=== PATIENT | female | born 1975 | race Caucasian/White ===

== ENCOUNTER 2019-09-11 17:54 | Observation (INO) | payer MEDICAID ==
[~2019-09-11] VITALS: Ht 160 cm; Wt 130.0 kg
--- NOTE | ~2019-09-11 | HEMODYNAMI ---
PATIENT:SHY VARGAS MEDICAL RECORD: [id number] : 71 [id number] ADMISSION DATE: 09/11/19 Generatedon:09/12/201915:55 Patient name: SHY VARGAS Patient #: [id number] : 1975 Date of study: 09/12/2019 Page: Of Hemodynamic Procedure Report Patient Data Patient Demographics Procedure consent was obtained First Name: SHY Gender: Female Last Name: SAM : 1975 Patient #: [id number] Age: 44 year(s) Race: SSN: [id number] Additional ID: [id number] Contact details [address]: [address] [place] [address] State: [place] City: [place] Zip code: [address] Admission Admission Data Admission Date: 09/11/2019 Admission Time: 20:53 Arrival Date: 09/11/2019 Arrival Time: 20:53 Admit Source: Emergency Insurance Payor: Private department health insurance Room #: D.2115 [facility] #: [id number] Height (in.): 62.99 BSA: 2.25 (m2) Height (cm.): 160 BMI: 50.78 (kg/m2) Weight (lbs.): 286.6 Weight (kg.): 130 Lab Results Lab Result Date: 09/12/2019 Lab Result Time: 0:00 Biochemistry Name Units Result Min Max BUN mg/dl 12 --(-*--)-- 7 18 Creatinine mg/dl 0.9 --(-*--)-- 0.6 1.3 eGFR ml/min 70.51003 *-(----)-- 90 120 NONAFRICAN CBC Name Units Result Min Max Hemoglobin g/dl 10.4 *-(----)-- 13.5 17.5 Procedure Procedure Types Cath Procedure Diagnostic Procedure LHC [facility] w/Coronaries Sedation Charges Moderate Sedation up to 30 minutes Procedure Description Procedure Date Procedure Date: 09/12/2019 Procedure Start Time: 15:27 Procedure End Time: 15:52 Procedure Staff Name Function Amish Alex MD Performing Physician Doreen Diaz RT Monitor Latisha Slade RT Scrub Francesca Maria RT Scrub Leonila Cordero RN Nurse Procedure Data Cath Procedure Fluoroscopy Diagnostic fluoroscopy Total fluoroscopy Time: 3.5 time: 3.5 min min Diagnostic fluoroscopy Total fluoroscopy dose: 976 dose: 976 mGy mGy Contrast Material Contrast Material Type Amount (ml) Isovue 300 54 Entry Location Entry Primary Successful Side Size Upsize Upsize Entry Closure Succes sful Closure Location (Fr) 1 (Fr) 2 (Fr) Remarks Device Remarks Femoral Right 4 Fr Sheath vein sutured in place Femoral Right 5 Fr Exoseal artery Femoral Left 5 Fr Exoseal artery Estimated blood loss: 5 ml Diagnostic catheters Device Type Used For End Catheter Placement MULTIPACK JL 4.0 5Fr Left Coronary catheter Angiography MULTIPACK 3DRC 5Fr Right Coronary catheter Angiography MULTIPACK Pigtail 5 Fr LV Angiography catheter Procedure Complications No complications Procedure Medications Medication Administration Route Dosage 0.9% NaCl I.V. 100 ml/hr Oxygen etCO2 Nasal cannula 2 l/min Lidocaine 2% added to field 20 Heparin Flush Bag added to field 2 bags (1000units/500ml NS) Plavix P.O. 75 mg Benadryl I.V. 50 mg Solumedrol I.V. 125 mg Versed I.V. 2 mg Fentanyl I.V. 50 mcg Fentanyl I.V. 50 mcg Hemodynamics Rest BSA: 2.25 (m2) HGB: 10.4 (g/dl) O2 Consumption: Estimated: 239 (ml/min) O2 Consu mption indexed: Estimated:106.22 (ml/min/m) Heart Rate: 88 (bpm) Pressure Samples Time Site Value (mmHg) Purpose Heart Use Rate(bpm) 15:45 LV 105/5,9 Snapshot 98 15:45 AO 130/72(101) Pullback 97 15:45 LV 132/10,13 Pullback 97 Gradients Valve Time Site 1 Site 2 Mean SEP/DFP Peak To Heart Use (mmHg) (sec/min) Peak Rate (mmHg) (bpm) Aortic 15:45 LV AO 5 19 2 97 132/10,13 130/72(101) Calculations Valve P-P Mean Valve Index Valve Source Name Gradient Area Flow (cm2) Aortic 2 5 2 5 Snapshots Pre Cath Intra NCS Post Cath Vital Signs Time Heart Resp SPO2 etCO2 NIBP (mmHg) Rhythm Pain Status Sedation Rate (ipm) (%) (mmHg) Level (bpm) 15:19:02 88 21 97 0 142/96(117) NSR 0 (11) , No 10(A) pain 15:23:04 92 12 98 23.9 148/102(135) NSR 0 (11) , No 10(A) pain 15:27:10 77 13 99 36.7 150/92(110) NSR 0 (11) , No 10(A) pain 15:31:16 102 16 100 39.6 151/102(122) ST 0 (11) , No 10(A) pain 15:35:21 98 13 100 39.6 143/99(117) NSR 0 (11) , No 10(A) pain 15:39:25 100 17 98 38.9 141/99(121) NSR 0 (11) , No 10(A) pain 15:43:27 94 11 100 23.2 154/95(111) NSR 4 (11) , 10(A) Distressing 15:47:33 94 15 98 39.6 145/101(131) NSR 0 (11) , No 10(A) pain 15:52:32 96 15 98 37.4 Measuring NSR 0 (11) , No 10(A) pain 15:52:46 98 16 97 40.4 141/102(128) NSR 0 (11) , No 10(A) pain Medications Time Medication Route Dose Verified Delivered Reason Notes E ffectiveness by by 15:18:08 0.9% NaCl I.V. 100 Amish Keen used for ml/hr Abi Gil procedure MD PAYNE 15:18:14 Oxygen etCO2 2 Amish Keen used for Nasal l/min Abi Gil procedure cannula MD PAYNE 15:18:20 Lidocaine 2% added 20ml Amish Wellington for local to vial [facility] anesthetic field MD PEDERSON 15:18:24 Heparin Flush added 2 Amish Wellington used for Bag to bags Abi Abi procedure (1000units/500ml field MD PEDERSON NS) 15:18:32 Plavix P.O. 75 mg Amish Keen for [facility] fermin MD RN therapy 15:18:43 Benadryl I.V. 50 mg Amish Leonila used for [facility] Cordero procedure MD PAYNE 15:18:50 Solumedrol I.V. 125 Amish Jonyla used for mg [facility] pires MD, RN 15:24:59 Versed I.V. 2 mg Amish Leonila for sedation [facility] Cordero MD, RN 15:25:03 Fentanyl I.V. 50 Amish Leonila for sedation mcg [facility] Cordero MD, RN 15:43:52 Fentanyl I.V. 50 Amish Leonila for sedation [facility] Corder[facility] MD, RN Procedure Log Time Note 14:40:58 Diagnostic Cath Status : Urgent 14:41:38 Informed consent obtained and on chart 14:43:13 Admit Source: Emergency department 14:43:17 Arrival Date: 09/11/2019 8:53:00 PM 14:43:35 Insurance Payor : Private health insurance 14:43:40 Patient Height : 62.99 inches 14:43:44 Patient Weight : 286.6 lbs 14:44:11 Lab Result : BUN 12 mg/dl 14:44:11 Lab Result : Creatinine 0.9 mg/dl 14:44:11 Lab Result : eGFR NONAFRICAN 70.32491 ml/min 14:44:11 Lab Result : Hemoglobin 10.4 g/dl 14:44:43 Francesca GAYLE(R) sent for patient. Start room use. 14:44:44 Time tracking: Regular hours (M-F 7:00 - 5:00) 14:44:49 Plan of Care:Hemodynamics will remain stable., Cardiac rhythm will remain stable., Comfort level will be maintained., Respiratory function will remain adequate., Patient/ family verbilizes understanding of procedure., Procedure tolerated without complication., Recovers from procedure without complications.. 14:46:43 Risk of Mortality: 4.8 14:46:46 Risk of blood transfusion: 17.2 14:46:50 Risk of WANDA: 12.1 14:46:56 2) 60-89 Mildly reduced kidney function, and other findings (as for stage 1) point to kidney disease. 14:47:10 Maximum allowable contrast dose (3.7 X eGFR X 0.75)197 ml. 14:50:57 Patient received from Med II to CCL 2 Alert and oriented. Tansferred to table in Supine position. 14:50:58 Warm blankets applied, and ilana hugger turned on for patient comfort. 14:50:59 Correct patient and procedure confirmed by team. 14:50:59 ECG and BP/O2 sat monitors applied to patient. 15:12:16 IV Right upper arm D/C'd due to infiltration. 15:18:00 Vital chart was started 15:18:08 0.9% NaCl 100 ml/hr I.V. was administered by Leonila Cordero RN; used for procedure; Verbal order read back and verified. 15:18:14 Oxygen 2 l/min etCO2 Nasal cannula was administered by Leonila Cordero RN; used for procedure; Verbal order read back and verified. 15:18:20 Lidocaine 2% 20ml vial added to field was administered by Amish Alex MD; for local anesthetic; Verbal order read back and verified. 15:18:24 Heparin Flush Bag (1000units/500ml NS) 2 bags added to field was administered by Amish Alex MD; used for procedure; Verbal order read back and verified. 15:18:32 Plavix 75 mg P.O. was administered by Leonila Cordero RN; for antiplatelet therapy; Verbal order read back and verified. 15:18:43 Benadryl 50 mg I.V. was administered by Leonila Cordero RN; used for procedure; Verbal order read back and verified. 15:18:50 Solumedrol 125 mg I.V. was administered by Leonila Cordero RN; used for procedure; Verbal order read back and verified. 15:19:00 Baseline sample Acquired. 15:19:06 Rhythm: sinus tachycardia 15:19:12 Full Disclosure recording started 15:19:37 H&P Date Dictated: 09/12/2019 New H&P dictated by physician.. 15:19:39 Pre-procedure instructions explained to patient. 15:19:40 Pre-op teaching completed and patient verbalized understanding. 15:19:41 Family in patients room. 15:19:42 Patient NPO since Midnight. 15:19:47 Is the patient allergic to Iodine/contrast media? Yes. 15:19:49 Was the patient premedicated? Yes 15:19:52 Is patient on blood thinner?Yes 15:19:54 ACC The patient was administered the following blood thiners within the last 24 hours: ACCPlavix 15:20:00 Patient diabetic? Yes. 15:20:01 If diabetic: On Metformin? No 15:20:04 Previous problem with sedation/anesthesia? No ? 15:20:15 Snore? Yes 15:20:17 Sleep apnea? Yes 15:20:18 Deviated septum? No 15:20:19 Opens mouth fully? Yes 15:20:34 Sticks out tongue? Yes 15:20:38 Airway obstruction? No ? 15:21:16 Dentures? No ? 15:21:23 Pre procedure: right dorsailis pedis pulse 2+ Normal; easily identifiable; not easily obliterated 15:21:25 Pre procedure: left dorsailis pedis pulse 2+ Normal; easily identifiable; not easily obliterated 15:21:28 Patient pain scale 0/10 ?. 15:21:43 Lab results completed and on chart. 15:21:49 Stress Test: no; N/A ? 15::57 Right groin area was prepped with chlora-prep and draped in sterile fashion 15::59 Alarms reviewed by R. N. 15::59 Sharps counted by scrub and verified by R.N. 15::59 Physician arrived 15:22:00 --------ALL STOP TIME OUT------ 15:22:01 Final Timeout: patient, procedure, and site verified with staff and physician. All members of the team are in agreement. 15:24:22 Right groin site verified by team. 15:24:25 Fire Safety Assessment: A--An alcohol-based skin anteseptic being used preoperatively., C--Open oxygen or nitrous oxide is being used., D--An ESU, laser, or fiber-optic light is being used. 15:24:30 Physical assessment completed. ASA score P 2 - A patient with mild systemic disease as per Amish Alex MD. 15:24:34 Sedation plan: IV Moderate Sedation Medication:Versed, Fentanyl 15:24:59 Versed 2 mg I.V. was administered by Leonila Cordero RN; for sedation; Verbal order read back and verified. 15:25:03 Fentanyl 50 mcg I.V. was administered by Leonila Gil RN; for sedation; Verbal order read back and verified. 15:25:34 unable to start new iv; Dr Alex planning to gain femoral venous access for meds 15:25:38 Use device set Femoral Dx 15:25:39 ACIST Syringe (92724) opened to sterile field. 15:25:39 Bag Decanter (2002S) opened to sterile field. 15:25:40 Medline Cath Pack ([id number]) opened to sterile field. 15:25:41 ACIST Hand Control (33656) opened to sterile field. 15:25:42 ACIST Manifold (95545) opened to sterile field. 15:25:42 DIAGNOSTIC Multipack 5Fr catheter set (OR2652) opened to sterile field. 15:25:43 Tegaderm 4 x 4 (1626W) opened to sterile field. 15:25:44 SHEATH 5FR Delray (UPZ860) opened to sterile field. 15:25:44 EMERALD Guide Wire (037-810) opened to sterile field. 15:25:50 Procedure started. 15:25:57 MICROPUNCTURE 4FR Oxyrane UK (U28996) opened to sterile field. 15:27:29 Local anesthetic to right femoral artery with Lidocaine 2% by Amish Alex MD.INITIAL ACCESS ONLY 15:28:53 Access obtained with 4Fr micropunture. 15:29:06 A 4 Fr sheath was inserted into the Right Femoral vein 15:29:50 A 5 Fr sheath was inserted into the Right Femoral artery 15:30:57 A MULTIPACK JL 4.0 5Fr catheter was advanced over the wire and used for Left Coronary Angiography. 15:32:04 LCA angiography performed. 15:32:07 Injector settings: Ml/sec: 3, Volume: 6, 15:33:05 Catheter removed. 15:33:10 A MULTIPACK 3DRC 5Fr catheter was advanced over the wire and used for Right Coronary Angiography. 15:34:19 RCA angiography performed. 15:34:21 Injector settings: Ml/sec: 3, Volume: 6, 15:39:24 GLIDE WIRE Super Stiff Angled 260cm (QR1324) opened to sterile field. 15:42:59 glide wire advanced in attempt to guide pigtail; removed 15:43:24 left femoral prepped in sterile fashion 15:43:29 Local anesthetic to left femerol artery with Lidocaine 2% by Amish Alex MD.ADDITIONAL ACCESS 15:43:41 A 5 Fr sheath was inserted into the Left Femoral artery 15:43:41 SHEATH 5FR Delray (PWZ112) opened to sterile field. 15:43:52 Fentanyl 50 mcg I.V. was administered by Leonila Cordero RN; for sedation; Verbal order read back and verified. 15:44:34 A MULTIPACK Pigtail 5 Fr catheter was advanced over the wire and used for LV Angiography. 15:45:08 LV hemodynamics recorded. 15:45:09 LV gram done using WEBB 15:45:13 Injector settings: Ml/sec: 5, Volume: 15, 15:45:36 EF : 55 % 15:46:17 Catheter removed. 15:46:20 EXOSEAL 5Fr (EX500) opened to sterile field. 15:48:31 EXOSEAL 5Fr (EX500) opened to sterile field. 15:49:46 Sheath removed intact; hemostasis achieved with Exoseal to the Right Femoral artery. 15:50:19 Sheath removed intact; hemostasis achieved with Sheath sutured in place to the Right Femoral vein. 15:51:10 Sheath removed intact; hemostasis achieved with Exoseal to the Left Femoral artery. 15:51:16 Procedure ended.(Physican Out) 15:51:36 Fluoroscopy time 03.50 minutes. 15:51:43 Fluoroscopy dose: 976 mGy 15:51:43 Flurop Dose total: 976 15:51:49 Dose Area Product 87122 mGy/cm. 15:51:56 Contrast amount:Isovue 300 54ml. 15:51:59 Maximum allowable dose exceeded? No. 15:52:00 Sharps counted by scrub and verified by R.N. 15:52:02 Insertion/operative site no bleeding no hematoma. 15:52:07 Post-op/insertion site Right Femoral artery dressed using a 4 x 4 and Tegaderm. 15:52:10 Post-op/insertion site Left Femoral artery dressed using a 4 x 4 and Tegaderm. 15:52:11 Post Procedure Pulses reassessed and unchanged 15:52:14 Post procedure rhythm: unchanged. 15:52:17 Estimated blood loss: 5 ml 15:52:19 Post procedure instruction explained to patient.Patient verbalizes understanding. 15:52:19 Patient needs reinforcement of post procedure teaching. 15:52:28 Procedure type changed to Cath procedure, Diagnostic procedure, LHC, LHC w/Coronaries, Sedation Charges, Moderate Sedation up to 30 minutes 15:52:29 Procedure and supply charges have been captured, reviewed, submitted and are correct. 15:52:34 Procedure Complication : No complications 15:52:37 Vital chart was stopped 15:52:39 [facility] Findings: mild to moderate CAD (<70%) 15:52:40 Operative report dictated upon procedure completion. 15:52:40 See physician's report for complete and final results. 15:52:44 Report given to [facility]. 15:52:47 Patient transfered to [facility] with Stretcher. 15:52:49 Procedure ended. 15:52:49 Full Disclosure recording stopped 15:53:44 End room use (Document Last) 15:54:26 End room use (Document Last) 15:54:50 End room use (Document Last) Device Usage Item Name Manufacture Quantity Catalog Hospital Part Current Minimal Lot# / Number Charge Number Stock Stock Serial# Code ACIST Syringe Acist 1 49538 556959 004434 427026 20 (41648) Medical Systems Inc Bag Decanter Microtek 1 2001S 565366 29487 667601 5 (2001S) Medical Inc. Medline Cath Medline 1 [id number] 286826 81490 486594 5 Pack ([id number]) ACIST Hand Acist 1 98153 492178 490589 328246 5 Control Medical (18283) Systems Inc ACIST Acist 1 22492 046872 505281 123529 5 Manifold Medical (51205) Systems Inc DIAGNOSTIC Cardinal 1 DJ2810 496056 33787 077812 30 Multipack 5Fr Health catheter set (WI6608) Tegaderm 4 x 3M 1 1626W 286746 678005 129881 5 4 (1626W) SHEATH 5FR Terumo 2 TVO859 906048 043331 623283 5 Delray (IIM848) EMERALD Guide Cardinal 1 502-455 857145 389335 061542 5 Wire Health (502-455) MICROPUNCTURE Oxyrane UK Medical 1 H87541 394995 657939 719484 5 4FR Cook (H58505) MULTIPACK JL Cardinal 1 759743 5 4.0 5Fr Health catheter MULTIPACK Cardinal 1 567082 5 3DRC 5Fr Health catheter GLIDE WIRE Terumo 1 IQ7802 404502 377154 957288 5 Super Stiff Angled 260cm (DJ1168) MULTIPACK Cardinal 1 254755 5 Pigtail 5 Fr Health catheter EXOSEAL 5Fr Cardinal 2 EX500 485599 293416 630210 10 (EX500) Health Signature Audit [place] Stage Time Signature Unsigned Intra-Procedure 09/12/2019 Doreen Diaz RT(R) 3:53:02 PM RT(R) 09/12/2019 3:53:40 PM Intra-Procedure 09/12/2019 Doreen Diaz 3:54:26 PM RT(R) Intra-Procedure 09/12/2019 Leonila Cordero 3:54:50 PM RN Intra-Procedure 09/12/2019 Amish Aviles 3:55:09 PM Austin PEDERSON Signatures Performing Physician : Signature : Amish Alex MD Date : Time : Monitor : Doreen Diaz RT Signature : Date : Time : Nurse : Leonila Cordero RN Signature : Date : Time : [facility] [address] [facility] [place] [address]
[2019-09-11] MEDS ORDERED: LISINOPRIL20 MG PO (18:04)
[2019-09-11] MEDS ORDERED: LIPITOR20 MG PO (18:04)
[2019-09-11] MEDS ORDERED: GLUCOPHAGE500 MG PO (18:04)
[2019-09-11] MEDS ORDERED: NEURONTIN 300300 MG PO (18:05)
[2019-09-11] MEDS ORDERED: RANEXA500 MG PO (18:05)
[2019-09-11] MEDS ORDERED: ZOFRAN4 MG PO (18:05)
[2019-09-11] MEDS ORDERED: PLAVIX75 MG PO (18:05)
[2019-09-11] MEDS ORDERED: PERCOCET 10-321 EAC1 PO (18:06)
[2019-09-11] MEDS ORDERED: LOW DOSE ASPIRI81 M1 PO (18:06)
[2019-09-11] MEDS ORDERED: ISOSORBIDE DINI30 MG PO (18:06)
[2019-09-11] MEDS ORDERED: NITROQUICK0.4 MG SL (18:07)
[2019-09-11] MEDS ORDERED: CYCLOBENZAPRINE10 MG PO (18:07)
[2019-09-11] MEDS ORDERED: MORPHINE SULFAT30 M4 PO (18:07)
[2019-09-11 19:12] LABS: BASOPHILS 0.3 % (0-2); HEMATOCRIT 39.6 % (36.0-48.0); HEMOGLOBIN 12.2 g/dL (12-16); IMMATURE GRANULOCYTES 0.2 % (0-5); LYMPHOCYTES 28.5 % (15-50); MCH 24.7 pg (26.0-34.0); MCHC 30.8 g/dL (31.0-37.0); MCV 80.3 fL (80.0-100.0); MONOCYTES 9.9 % (2-11); NEUTROPHILS 56.1 % (40-80); PLATELET COUNT 322 10x3/uL (130-400); RBC 4.93 10x6/uL (4.00-5.40); RDW 16.3 % (11.5-14.5); WBC 8.8 10x3/uL (4.8-10.8)
[2019-09-11 19:17] LABS: APTT 21.8 SECONDS (22.8-39.4); CALC OSMOLALITY 276 mosm/kg (275-300); CHLORIDE - SERUM 104 mmol/L (98-107); CREATININE - SERUM 0.8 mg/dL (0.6-1.3); GLUCOSE 125 mg/dL (74-106); INR 0.97 (0.85-1.17); POTASSIUM - SERUM 4.1 mmol/L (3.5-5.1); PROTIME 12.4 SECONDS (11.6-15.0); SODIUM 138 mmol/L (136-145); UREA NITROGEN 12 mg/dL (7-18); eGFR NON AFRICAN AMERICAN 82 mL/min (90-120)
[2019-09-11 19:32] LABS: ALBUMIN 3.3 g/dL (3.4-5.0); ALKALINE PHOSPHATASE 68 U/L (46-116); ALT (SGPT) 43 U/L (10-68); BILIRUBIN - TOTAL 0.35 mg/dL (0.2-1.3); CKMB 0.1 U/L (0.0-3.6); CREATINE KINASE 46 UL (21-215); MAGNESIUM - SERUM 1.8 mg/dL (1.8-2.4); PROTEIN - SERUM 7.2 g/dL (6.4-8.2)
[2019-09-11 19:34] LABS: TROPONIN-I < 0.017 ng/mL (0.000-0.060)
--- NOTE | 2019-09-11 23:00 | NUR ---
ARRIVED BY WHEELCHAIR FROM ER. PATIENT ALERT AND ORIENTED. RESPIRATIONS ARE EVEN AND UNLABORED. NO S/S OF DISTRESS. NO C/O PAIN. CALL LIGHT WITHIN REACH. WILL CPOC.
[2019-09-11 23:07] VITALS: BP 132/68; Ht 160 cm; Wt 130.0 kg
[2019-09-12 01:45] LABS: CKMB 0.1 U/L (0.0-3.6); CREATINE KINASE 49 UL (21-215)
[2019-09-12 01:47] LABS: TROPONIN-I < 0.017 ng/mL (0.000-0.060)
[2019-09-12 05:38] VITALS: BP 137/101
[2019-09-12 07:21] LABS: BASOPHILS 0.4 % (0-2); EOSINOPHILS 5.4 % (0-7); HEMATOCRIT 34.6 % (36.0-48.0); HEMOGLOBIN 10.4 g/dL (12-16); LYMPHOCYTES 35.2 % (15-50); MCHC 30.1 g/dL (31.0-37.0); MCV 79.9 fL (80.0-100.0); MONOCYTES 9.5 % (2-11); NEUTROPHILS 49.5 % (40-80); PLATELET COUNT 276 10x3/uL (130-400); RBC 4.33 10x6/uL (4.00-5.40); RDW 16.3 % (11.5-14.5); WBC 6.8 10x3/uL (4.8-10.8)
[2019-09-12 07:47] LABS: CALC OSMOLALITY 281 mosm/kg (275-300); CALCIUM 8.4 mg/dL (8.5-10.1); CHLORIDE - SERUM 106 mmol/L (98-107); CKMB 0.1 U/L (0.0-3.6); CREATINE KINASE 45 UL (21-215); CREATININE - SERUM 0.9 mg/dL (0.6-1.3); GLUCOSE 117 mg/dL (74-106); MAGNESIUM - SERUM 1.8 mg/dL (1.8-2.4); PHOSPHOROUS 4.4 mg/dL (2.5-4.9); POTASSIUM - SERUM 4.2 mmol/L (3.5-5.1); SODIUM 141 mmol/L (136-145); UREA NITROGEN 12 mg/dL (7-18); eGFR NON AFRICAN AMERICAN 71 mL/min (90-120)
[2019-09-12 07:50] LABS: TROPONIN-I < 0.017 ng/mL (0.000-0.060)
--- NOTE | 2019-09-12 09:00 | NUR ---
CONSENTS SIGNED FOR [facility]. TELEMETRY SR. WILL CONT. PLAN OF CARE.
[2019-09-12 09:04] VITALS: BP 126/76
[2019-09-12 09:05] LABS: CHOL - HDL RATIO 5.1 ratio (2.3-4.1); LDL-HDL RATIO 3.2 ratio (1.5-3.5)
[2019-09-12 12:25] VITALS: BP 149/102
[2019-09-12 13:25] LABS: CKMB 0.4 U/L (0.0-3.6); CREATINE KINASE 57 UL (21-215)
[2019-09-12 13:26] LABS: TROPONIN-I < 0.017 ng/mL (0.000-0.060)
--- NOTE | 2019-09-12 14:43 | CN ---
PATIENT NAME:SHY VARGAS MEDICAL RECORD: [id number] : 71 LOCATION:D. D.2115 ADMIT DATE: 09/11/19 ACCOUNT: [id number] CONSULTING PHYSICIAN: DOMENIC BYNUM MD REFERRING PHYSICIAN: DEJON MILLER MD DATE OF CONSULTATION: 09/12/2019 HISTORY OF PRESENT ILLNESS: A 44-year-old female with a known history of coronary artery disease status post intervention. She has a history of diabetes mellitus, hypertension, hyperlipidemia, on long-acting nitrates and Ranexa admitted with angina, previous intervention 2-vessel in [place]. We are asked to see her concerning her cardiovascular status. PAST MEDICAL HISTORY: Includes: 1. History of hypertension. 2. Hyperlipidemia. 3. Diabetes mellitus. 4. Coronary artery disease as described above. MEDICATIONS: Include Plavix 75 every day, atorvastatin 20 every day, Imdur 30 every day, lisinopril 20 every day, Ranexa 500 b.i.d., aspirin 81 every day, Neurontin 300 mg t.i.d., morphine sulfate 30 q.12 hours, Percocet one q.6 hours p.r.n., metformin half gram b.i.d. ALLERGIES: CONTRAST, PENICILLIN. SOCIAL HISTORY: Just recently moved here from [place]. No set exercise program. Easily takes care of all her ADLs. Smokes about a pack daily. PHYSICAL EXAMINATION: GENERAL: Obese, in no acute distress, appears stated age. VITAL SIGNS: Blood pressure 137/101, pulse 90 and regular. HEENT: Normocephalic, atraumatic. NECK: No JVD or bruit. HEART: Regular. LUNGS: Castro are clear. ABDOMEN: Soft, nontender. EXTREMITIES: Pulses 2+. No edema. DIAGNOSTIC DATA: ECG without acute change. IMPRESSION: Acute coronary syndrome, class III-IV angina. We will plan for angiography, intervention based on the above. TRANSINT:[id number] Voice Confirmation ID: [id number] DOCUMENT ID: [id number] DOMENIC BYNUM MD at 1443 CC: [id number] DICTATION DATE: 09/12/19 0838 CRUISE DIRECTOR: 09/12/19 1017 [place] [address]
--- NOTE | 2019-09-12 15:00 | NUR ---
PRE-OPS GIVEN. TO WATCH ASSEMBLY INSTRUCTOR BY BED.
--- NOTE | 2019-09-12 16:26 | NUR ---
BACK FROM PHERESIS SPECIALIST. VS WNL. BILAT GROINS STABLE WITHOUT BLEEDING OR HEMATOMA NOTED. WILL MONITOR.
--- NOTE | 2019-09-13 08:02 | MORECARE ---
CASE MANAGEMENT DISCHARGE SUMMARY PATIENT: SHY VARGAS UNIT: [id number] ADM DATE: 09/11/19 AGE: 44 : 71 SEX: F ROOM/BED: D.3695 AUTHOR: HEATHER FARRIS PHYSICIAN: REFERRING PHYSICIAN: DEJON MILLER MD DATE OF SERVICE: 09/13/19 Discharge Plan Patient Name: SHY [facility]ARGAS [facility] [facility] 1975 Planned Disposition: Home Anticipated Discharge Date: 09/12/19 Discharge Date: 09/12/2019 Expected LOS: 1 Initial Reviewer: [email or web address] Initial Review Date: 09/13/2019 Generated: 09/13/19 9:02 am Patient Name: SHY VARGAS Page [id number] at 0802 All edits/amendments must be made on the electronic document DICTATION DATE: 09/13/19 08 MEDICAL LIBRARY ASSISTANT: TERRELL 09/13/19 08 RPT#: [id number] DC DATE:09/12/19 STATUS: DIS IN [facility] [address] [facility] [place] [address] END OF REPORT
--- NOTE | 2019-09-13 08:10 | MORECARE ---
CASE MANAGEMENT DISCHARGE SUMMARY PATIENT: SHY VARGAS UNIT: [id number] ADM DATE: 09/11/19 AGE: 44 : 71 SEX: F ROOM/BED: D.6815 AUTHOR: HEATHER FARRIS PHYSICIAN: REFERRING PHYSICIAN: DEJON MILLER MD DATE OF SERVICE: 09/13/19 Discharge Plan Patient Name: SHY VARGAS [facility] [facility] 1975 Planned Disposition: Home Anticipated Discharge Date: 09/12/19 Discharge Date: 09/12/2019 Expected LOS: 1 Initial Reviewer: [email or web address] Initial Review Date: 09/13/2019 Generated: 09/13/19 9:09 am Last DP export: 09/13/19 7:02 Patient Name: SHY VARGAS Page [id number] at 0810 All edits/amendments must be made on the electronic document DICTATION DATE: 09/13/19808 READING INSTRUCTOR: TERRELL 09/13/19808 RPT#: [id number] DC DATE:09/12/19 STATUS: DIS IN [facility] [address] [place] [address] END OF REPORT
--- NOTE | 2019-09-14 11:15 | OP ---
PATIENT NAME: SHY VARGAS MEDICAL RECORD: [id number] :71 LOCATION:D.M2 D.2114 ADMISSION DATE:09/11/19 SURGEON: DOMENIC BYNUM MD DATE OF OPERATION: 09/12/2019 PROCEDURE: Left heart catheterization, selective coronary angiography, and right femoral artery approach. CATHETERS: A 5-Tajik sheath, 5/4 left and right Willi, 5/4 pig. Radial sheath was is in place to the central venous line in the right femoral vein due to poor access. FINDINGS: Left ventriculography in 30-degree WEBB view: Normal wall motion, normal systolic function. CORONARY ANATOMY: LEFT MAIN: Left main is free of disease. LAD: Free of disease in the diagonal system. CIRCUMFLEX: Area of previous stenting is widely patent without evidence of restenosis. No evidence of progression of [place] disease. RIGHT CORONARY ARTERY: Again, widely patent stent, no progression of disease. IMPRESSION: No evidence of restenosis. No evidence of progression of [place] disease. Normal left ventricular function. TRANSINT:[id number] Voice Confirmation ID: [id number] DOCUMENT ID: [id number] DOMENIC BYNUM MD at 1115 CC: [id number] DICTATION DATE: 09/12/19 1633 PHOTO MASK PATTERN GENERATOR: 09/12/192112 DIS IN 09/12/19 [address] [place] [place] [address]
== END 2019-09-12 18:39 | disposition home or self-care (01) ==
LOC: D.ER 17:54 → D.M2 20:53 → OBSVTIME 20:53 → D.M2 20:53
PROVIDERS: Family Medicine; Internal Medicine Interventional Cardiology; ADMIT Family Medicine Adult Medicine; ATTEND Family Medicine Adult Medicine
DX: I24.9 Acute ischemic heart disease, unspecified (principal); I25.110 Atherosclerotic heart disease of native coronary artery with unstable angina pectoris; E78.5 Hyperlipidemia, unspecified; E11.9 Type 2 diabetes mellitus without complications; I10 Essential (primary) hypertension; E66.01 Morbid (severe) obesity due to excess calories; Z68.43 Body mass index [BMI] 50.0-59.9, adult; D68.2 Hereditary deficiency of other clotting factors; Z86.711 Personal history of pulmonary embolism; Z72.0 Tobacco use

== ENCOUNTER 2019-10-22 11:42 | Emergency (ER) | payer SELFPAY ==
[~2019-10-22 11:42] MED LIST: CYCLOBENZAPRINE10 MG PO; GLUCOPHAGE500 MG PO; ISOSORBIDE DINI30 MG PO; LIPITOR20 MG PO; LISINOPRIL20 MG PO; LOW DOSE ASPIRI81 M1 PO; MORPHINE SULFAT30 M4 PO; NEURONTIN 300300 MG PO; NITROQUICK0.4 MG SL; PERCOCET 10-321 EAC1 PO; PLAVIX75 MG PO; RANEXA500 MG PO; ZOFRAN4 MG PO
[2019-10-22 11:46] VITALS: Ht 160 cm
[2019-10-22] MEDS ORDERED: ZPAK PO (15:21)
[2019-10-22] MEDS ORDERED: MUCINEX DM ER1 EAC1 PO (15:21)
[2019-10-22] MEDS ORDERED: MEDROL DOSE PACK4 MG PO (15:21)
[2019-10-22 15:23] VITALS: BP 140/119
== END 2019-10-22 15:42 | disposition home or self-care (01) ==
LOC: D.ER 11:42
DX: J06.9 Acute upper respiratory infection, unspecified (principal); J40 Bronchitis, not specified as acute or chronic; E11.9 Type 2 diabetes mellitus without complications; Z79.84 Long term (current) use of oral hypoglycemic drugs; I10 Essential (primary) hypertension; I25.119 Atherosclerotic heart disease of native coronary artery with unspecified angina pectoris; Z86.718 Personal history of other venous thrombosis and embolism

== ENCOUNTER 2019-10-26 02:04 | Inpatient (IN) | payer SELFPAY ==
[~2019-10-26] VITALS: Ht 160 cm; Wt 133.8 kg
[~2019-10-26 02:04] MED LIST changes: +MEDROL DOSE PACK4 MG PO; +MUCINEX DM ER1 EAC1 PO; +ZPAK PO
[2019-10-26 02:29] LABS: BASOPHILS 0.3 % (0-2); EOSINOPHILS 0.6 % (0-7); HEMATOCRIT 35.7 % (36.0-48.0); HEMOGLOBIN 10.6 g/dL (12-16); IMMATURE GRANULOCYTES 1.3 % (0-5); LYMPHOCYTES 18.9 % (15-50); MCHC 29.7 g/dL (31.0-37.0); MCV 77.4 fL (80.0-100.0); MEAN PLATELET VOLUME 8.9 fL (7.4-10.4); MONOCYTES 10.9 % (2-11); RBC 4.61 10x6/uL (4.00-5.40); RDW 17.7 % (11.5-14.5); WBC 14.4 10x3/uL (4.8-10.8)
[2019-10-26 02:30] LABS: PLATELET COUNT 391 10x3/uL (130-400)
[2019-10-26 02:42] LABS: APTT 21.3 SECONDS (22.8-39.4); INR 0.98 (0.85-1.17); PROTIME 12.5 SECONDS (11.6-15.0)
[2019-10-26 02:43] LABS: CALC OSMOLALITY 281 mosm/kg (275-300); CALCIUM 8.6 mg/dL (8.5-10.1); CARBON DIOXIDE 27.4 mmol/L (21.0-32.0); CHLORIDE - SERUM 100 mmol/L (98-107); CREATININE - SERUM 0.9 mg/dL (0.6-1.3); POTASSIUM - SERUM 4.5 mmol/L (3.5-5.1); SODIUM 135 mmol/L (136-145); UREA NITROGEN 11 mg/dL (7-18); eGFR NON AFRICAN AMERICAN 71 mL/min (90-120)
[2019-10-26 02:44] LABS: GLUCOSE 327 mg/dL (74-106)
[2019-10-26 03:00] LABS: ALBUMIN 2.9 g/dL (3.4-5.0); ALKALINE PHOSPHATASE 74 U/L (46-116); ALT (SGPT) 25 U/L (10-68); BILIRUBIN - TOTAL 0.15 mg/dL (0.2-1.3); CKMB 0.4 U/L (0.0-3.6); CREATINE KINASE 84 UL (21-215); PRO BNP 94 pg/mL (0-125); PROTEIN - SERUM 7.3 g/dL (6.4-8.2)
[2019-10-26 03:04] LABS: TROPONIN-I < 0.017 ng/mL (0.000-0.060)
[2019-10-26 04:07] LABS: APPEARANCE CLEAR (CLEAR); BILIRUBIN NEGATIVE (NEGATIVE); COLOR YELLOW (YELLOW); GLUCOSE 1000 mg/dL (NEGATIVE); KETONE NEGATIVE (NEGATIVE); NITRITE NEGATIVE (NEGATIVE); PROTEIN NEGATIVE (NEGATIVE); SPECIFIC GRAVITY 1.005 (1.005-1.020); UROBILINOGEN NORMAL (NORMAL)
[2019-10-26 04:09] LABS: BACTERIA FEW /hpf (NEGATIVE); EPITHELIAL CELLS 0-5 /hpf (0-5); RED CELLS - URINE 0-5 /hpf (0-5); WHITE CELLS - URINE 0-5 /hpf (NEGATIVE)
[2019-10-26 05:28] VITALS: BP 156/93; BMI 52.3
[2019-10-26 08:54] LABS: % SATURATION 4 % (15-55); IRON 15 ug/dl (35-150); TOTAL IRON BIND CAPACITY 371 ug/dl (260-445); UNSAT IRON BIND CAPACITY 356 ug/dl (150-375)
--- NOTE | 2019-10-26 10:20 | NUR ---
PT ALERT X 4. SLIGHT WHEEZE TO RUL, NON-PRODUCTIVE COUGH, SOB. IV TO LEFT AC, SALINE LOCKED. PT REPORTING PAIN OF 8/10, MEDICATED PER ORDERS, WILL MONITOR. BED LOW, CALL LIGHT IN REACH. NO OTHER NEEDS AT THIS TIME
[2019-10-26 11:13] LABS: UDS - AMPHET NEGATIVE QUAL (NEGATIVE); UDS - BARB NEGATIVE QUAL (NEGATIVE); UDS - BENZO NEGATIVE QUAL (NEGATIVE); UDS - COCAINE NEGATIVE QUAL (NEGATIVE); UDS - OPIATE NEGATIVE QUAL (NEGATIVE); UDS - PCP NEGATIVE QUAL (NEGATIVE); UDS - THC NEGATIVE QUAL (NEGATIVE)
[2019-10-26 12:16] VITALS: BMI 52.2
[2019-10-26 12:36] VITALS: BP 121/82
[2019-10-26 15:02] VITALS: Ht 160 cm; Wt 133.8 kg
[2019-10-26 16:40] VITALS: BP 139/108
[2019-10-26 20:00] VITALS: BP 130/73
[2019-10-27] VITALS: BP 115/84
--- NOTE | 2019-10-27 02:04 | NUR ---
PT HAS FREQUENT COUGH WITH THICK GREEN SPUTUM. C/O NECK PAIN 06/03. GAVE COUGH SYRUP AND PERCOCET-10 1 TAB PO. PROVIDED PT BRIEFS AND PADS FOR STRESS INCONTINENCE WHEN COUGING. NO OTHER NEEDS. WILL REASSESS AND CONTINUE TO MONITOR.
[2019-10-27 04:00] VITALS: BP 146/73
[2019-10-27 06:18] LABS: BASOPHILS 0 % (0-2); EOSINOPHILS 0 % (0-7); HEMATOCRIT 33.3 % (36.0-48.0); HEMOGLOBIN 9.9 g/dL (12-16); LYMPHOCYTES 12.2 % (15-50); MCH 22.9 pg (26.0-34.0); MCHC 29.7 g/dL (31.0-37.0); MCV 76.9 fL (80.0-100.0); MEAN PLATELET VOLUME 8.8 fL (7.4-10.4); MONOCYTES 5.4 % (2-11); NEUTROPHILS 81.4 % (40-80); PLATELET COUNT 412 10x3/uL (130-400); RBC 4.33 10x6/uL (4.00-5.40); RDW 17.4 % (11.5-14.5); WBC 14.1 10x3/uL (4.8-10.8)
[2019-10-27 06:38] LABS: ANION GAP 13.5 mmol/L (8-16); CALCIUM 8.8 mg/dL (8.5-10.1); CARBON DIOXIDE 28.3 mmol/L (21.0-32.0); POTASSIUM - SERUM 4.8 mmol/L (3.5-5.1)
--- NOTE | 2019-10-27 07:18 | NUR ---
PT IS RESTING IN BED WITH EYES OPEN. RESPIRATIONS ARE EVEN AND UNLABORED. PT IS AAO X 4. PT REPORTS PAIN TO BACK NECK AND SHOULDER DESCRIBED CHRONIC IN NATURE BUT DENIES NEEDS FOR ANALGESIA AT THIS TIME. PT DENIES PRESENCE OF N/V. PIV INFUSING TO RIGHT SHOULDER WITHOUT DIFFICULTY. SCDS ARE ON. BED IS IN THE LOWEST POSITION. CALL LIGHT AND BEDSIDE TABLE ARE WITHIN REACH. SIDE RAILSX 2. PT DENIES FURTHER NEEDS. WILL CONT TO MONITOR.
[2019-10-27 08:29] VITALS: BP 154/84
[2019-10-27 12:52] VITALS: BP 110/66
[2019-10-27 18:14] VITALS: BP 120/60
[2019-10-27 20:00] VITALS: BP 120/73
[2019-10-28] VITALS: BP 134/75
[2019-10-28 04:00] VITALS: BP 125/73
[2019-10-28 06:36] LABS: BASOPHILS 0.1 % (0-2); EOSINOPHILS 0 % (0-7); HEMATOCRIT 34.4 % (36.0-48.0); HEMOGLOBIN 10.2 g/dL (12-16); IMMATURE GRANULOCYTES 1.2 % (0-5); LYMPHOCYTES 6.8 % (15-50); MCH 22.9 pg (26.0-34.0); MCHC 29.7 g/dL (31.0-37.0); MCV 77.1 fL (80.0-100.0); MEAN PLATELET VOLUME 8.9 fL (7.4-10.4); MONOCYTES 4.4 % (2-11); NEUTROPHILS 87.5 % (40-80); PLATELET COUNT 458 10x3/uL (130-400); RBC 4.46 10x6/uL (4.00-5.40); RDW 17.7 % (11.5-14.5)
[2019-10-28 06:37] LABS: WBC 18.8 10x3/uL (4.8-10.8)
[2019-10-28 06:39] LABS: ANION GAP 14.1 mmol/L (8-16); CALCIUM 8.9 mg/dL (8.5-10.1); CARBON DIOXIDE 27.8 mmol/L (21.0-32.0); CREATININE - SERUM 0.9 mg/dL (0.6-1.3); POTASSIUM - SERUM 4.9 mmol/L (3.5-5.1)
[2019-10-28 08:36] VITALS: BP 118/72
--- NOTE | 2019-10-28 09:08 | NUR ---
PT ALERT X 4. BREATH SOUNDS CLEAR BILAT, 2.5L O2 PER NC. TELEMETRY IN PLACE. IV TO RIGHT SHOULDER, PATENT, DRESSING CDI. PT REPORTING PAIN OF 8/10, MEDICATED PER ORDERS, WILL MONITOR. BED LOW, CALL LIGHT IN REACH. NO OTHER NEEDS AT THIS TIME.
[2019-10-28] MEDS ORDERED: OMNICEF300 MG PO (10:49)
[2019-10-28] MEDS ORDERED: VIBRAMYCIN 100100 MG PO (10:50)
[2019-10-28] MEDS ORDERED: FOLIC ACID1 MG PO (10:51)
[2019-10-28] MEDS ORDERED: PREDNISONE10 MG PO (10:52)
[2019-10-28] MEDS ORDERED: IPRAT-ALBUT 0.5-3 ML UPD (11:07)
[2019-10-28] MEDS ORDERED: ALBUTEROL SULF8.5 GM INH (11:07)
[2019-10-28] MEDS ORDERED: SINGULAIR10 MG PO (11:07)
[2019-10-28] MEDS ORDERED: SYMBICORT 16010.2 GM INH (11:07)
--- NOTE | 2019-10-28 12:43 | MORECARE ---
CASE MANAGEMENT DISCHARGE SUMMARY PATIENT: SHY LUA UNIT: [id number] ADM DATE: 10/26/19 AGE: 44 : 71 SEX: F ROOM/BED: D.[facility]7 AUTHOR: HEATHER FARRIS PHYSICIAN: REFERRING PHYSICIAN: LISY SORENSON MD DATE OF SERVICE: 10/28/19 Discharge Plan Patient Name: SHY LUA Facility: [facility]:[place] : 1975 Planned Disposition: Home Anticipated Discharge Date: Discharge Date: Expected LOS: Initial Reviewer: [email or web address] Initial Review Date: 10/26/2019 Generated: 10/28/19 1:43 pm Patient Name: SHY LUA Page 25868 at 1243 All edits/amendments must be made on the electronic document DICTATION DATE: 10/28/19 1242 METALLURGICAL OR MATERIALS TECHNICIAN: TERRELL 10/28/19 1242 RPT#: [id number] DC DATE: STATUS: ADM IN [facility] [address] [place] [address] END OF REPORT
--- NOTE | 2019-10-28 12:50 | MORECARE ---
CASE MANAGEMENT DISCHARGE SUMMARY PATIENT: SHY LUA UNIT: [id number] ADM DATE: 10/26/19 AGE: 44 : 71 SEX: F [facility] AUTHOR: HEATHER FARRIS PHYSICIAN: REFERRING PHYSICIAN: LISY SORENSON MD DATE OF SERVICE: 10/28/19 Discharge Plan Patient Name: SHY LUA [facility] [facility] 1975 Planned Disposition: Home Anticipated Discharge Date: Discharge Date: Expected LOS: Initial Reviewer: [email or web address] Initial Review Date: 10/26/2019 Generated: 10/28/19 1:49 pm DCPIA - Discharge Planning Initial Assessment Updated by [email or web address]: Hui Delgado on 10/28/19 12:43 pm * Is the patient Alert and Oriented? Yes * How many steps to enter\exit or inside your home? * PCP NO PCP * Pharmacy NO PREFERENCE * Preadmission Environment Home with Family * ADLs Independent * Equipment None * List name and contact numbers for known caregivers / representatives who currently or will assist patient after discharge: MARIANO LUA - [facility] - [phone] * Verbal permission to speak to the caregivers and representatives has been obtained from the patient. Yes * Community resources currently utilized None * Additional services required to return to the preadmission environment? No * Can the patient safely return to the preadmission environment? Yes * Has this patient been hospitalized within the prior 30 days at any hospital? No Last DP export: 10/28/19 11:43 am Patient Name: SHY LUA Page 62572 at 1250 All edits/amendments must be made on the electronic document DICTATION DATE: 10/28/19 1249 CLOCKMAKER: TERRELL 10/28/19 1249 RPT#: [id number] DC DATE: STATUS: ADM IN [facility] [address] [place] [address] END OF REPORT
--- NOTE | 2019-10-28 12:56 | MORECARE ---
CASE MANAGEMENT DISCHARGE SUMMARY PATIENT: SHY LUA UNIT: [id number] ADM DATE: 10/26/19 AGE: 44 : 71 SEX: F ROOM/BED: D.2237 AUTHOR: HEATHER FARRIS PHYSICIAN: REFERRING PHYSICIAN: LISY SORENSON MD DATE OF SERVICE: 10/28/19 Discharge Plan Patient Name: SHY LUA Facility: [facility]:[place] : 1975 Planned Disposition: Home Anticipated Discharge Date: Discharge Date: Expected LOS: Initial Reviewer: [email or web address] Initial Review Date: 10/26/2019 Generated: 10/28/19 1:56 pm Comments DCP- Discharge Planning Updated by [email or web address]: Hui Delgado on 10/28/19 11:[address] Patient Name: SHY LUA Admission Status: ER Accout number: [id number] Admission Date: 10-26-2019 : 1975 Admission Diagnosis: Attending: LISY SORENSON Current LOS: 2 Anticipated DC Date: Planned Disposition: Home Primary Insurance: UNINSURED DISCOUNT PLAN Discharge Planning Comments: CM met with patient to complete initial dc planning assessment. CM educated patient on the CM role and verbal consent given by patient to complete assessment. Patient lives at home with her where she is independent with her care. At discharge patient plans to return home and feels this is a safe discharge. CM discussed availability of home health, rehab services, and medical equipment. Patient states she just moved here in August and has [place] Medicaid. She just got earlier this week. She stated she was suppose to have started to work but ended up in hospital. Her just got out of hospital last week. Patient has no means to get her medications. She stated the doctors told her it was very important she get her antibiotics and inhalers. CM gave patient a Good RX card and will check to see if any other assistance available. CM will continue to follow and will assist as needed with dc plans/needs. Salt Cutter: Hui Delgado DCPIA - Discharge Planning Initial Assessment Updated by [email or web address]: Hui Delgado on 10/28/19 12:43 pm * Is the patient Alert and Oriented? Yes * How many steps to enter\exit or inside your home? * PCP NO PCP * Pharmacy NO PREFERENCE * Preadmission Environment Home with Family * ADLs Independent * Equipment None * List name and contact numbers for known caregivers / representatives who currently or will assist patient after discharge: MARIANO LUA - [facility] - [phone] * Verbal permission to speak to the caregivers and representatives has been obtained from the patient. Yes * Community resources currently utilized None * Additional services required to return to the preadmission environment? No * Can the patient safely return to the preadmission environment? Yes * Has this patient been hospitalized within the prior 30 days at any hospital? No Last DP export: 10/28/19 11:50 am Patient Name: SHY LUA Page 73834 at 1256 All edits/amendments must be made on the electronic document DICTATION DATE: 10/28/19 1256 MOSQUITO SPRAYER: TERRELL 10/28/19 1256 RPT#: [id number] DC DATE: STATUS: ADM IN [facility] [address] [place] [address] END OF REPORT
--- NOTE | 2019-10-28 14:09 | NUR ---
PT STATES SHE HAS HAD A FLU SHOT THIS SEASON. REFERRAL TO [facility]ACCO QUITLINE FAXED.
--- NOTE | 2019-10-28 15:01 | MORECARE ---
CASE MANAGEMENT DISCHARGE SUMMARY PATIENT: SHY LUA UNIT: [id number] ADM DATE: 10/26/19 AGE: 44 : 71 SEX: F ROOM/BED: D.2237 AUTHOR: HEATHER FARRIS PHYSICIAN: REFERRING PHYSICIAN: LISY SORENSON MD DATE OF SERVICE: 10/28/19 Discharge Plan Patient Name: SHY LUA Facility: [facility]:[place] : 1975 Planned Disposition: Home Anticipated Discharge Date: Discharge Date: Expected LOS: Initial Reviewer: [email or web address] Initial Review Date: 10/26/2019 Generated: 10/28/19 4:01 pm Comments DCP- Discharge Planning Updated by [email or web address]: Hui Delgado on 10/28/19 11:[address] Patient Name: SHY LUA Admission Status: ER Accout number: [id number] Admission Date: 10-26-2019 : 1975 Admission Diagnosis: Attending: LISY SORENSON Current LOS: 2 Anticipated DC Date: Planned Disposition: Home Primary Insurance: UNINSURED DISCOUNT PLAN Discharge Planning Comments: CM met with patient to complete initial dc planning assessment. CM educated patient on the CM role and verbal consent given by patient to complete assessment. Patient lives at home with her where she is independent with her care. At discharge patient plans to return home and feels this is a safe discharge. CM discussed availability of home health, rehab services, and medical equipment. Patient states she just moved here in August and has [place] Medicaid. She just got earlier this week. She stated she was suppose to have started to work but ended up in hospital. Her just got out of hospital last week. Patient has no means to get her medications. She stated the doctors told her it was very important she get her antibiotics and inhalers. CM gave patient a Good RX card and will check to see if any other assistance available. CM will continue to follow and will assist as needed with dc plans/needs. Hospice Music Therapy: Hui Delgado DCPIA - Discharge Planning Initial Assessment Updated by [email or web address]: Hui Delgado on 10/28/19 12:43 pm * Is the patient Alert and Oriented? Yes * How many steps to enter\exit or inside your home? * PCP NO PCP * Pharmacy NO PREFERENCE * Preadmission Environment Home with Family * ADLs Independent * Equipment None * List name and contact numbers for known caregivers / representatives who currently or will assist patient after discharge: MARIANO LUA - [facility] - [phone] * Verbal permission to speak to the caregivers and representatives has been obtained from the patient. Yes * Community resources currently utilized None * Additional services required to return to the preadmission environment? No * Can the patient safely return to the preadmission environment? Yes * Has this patient been hospitalized within the prior 30 days at any hospital? No External Providers External Provider: Vickie Next Contact Date: Service Request Date: Service Type: Resolution: Reviewer: Comments: Last DP export: 10/28/19 11:56 am Patient Name: SHY LUA Page [id number] at 1501 All edits/amendments must be made on the electronic document DICTATION DATE: 10/28/19 1501 VIDEO NETWORK ENGINEER: TERRELL 10/28/19 1501 RPT#: [id number] DC DATE: STATUS: ADM IN [facility] [address] [place] [address] END OF REPORT
--- NOTE | 2019-10-28 15:32 | MORECARE ---
CASE MANAGEMENT DISCHARGE SUMMARY PATIENT: SHY LUA UNIT: [id number] ADM DATE: 10/26/19 AGE: 44 : 71 SEX: F ROOM/BED: D.2237 AUTHOR: HEATHER FARRIS PHYSICIAN: REFERRING PHYSICIAN: LISY SORENSON MD DATE OF SERVICE: 10/28/19 Discharge Plan Patient Name: SHY LUA Facility: [facility]:[place] : 1975 Planned Disposition: Home Anticipated Discharge Date: Discharge Date: Expected LOS: Initial Reviewer: [email or web address] Initial Review Date: 10/26/2019 Generated: 10/28/19 4:32 pm Comments DCP- Discharge Planning Updated by [email or web address]: Yumiko Robles on 10/28/19 2:[address] DC PLAN: RETURN HOME WITH . DC NEEDS: NEBULIZER & MEDICATION ASSISTANCE. CM MET [facility] PATIENT WHO STATED SHE DOES NOT HAVE [place] MEDICAID AT THIS TIME. SHE FEELS SHE WILL HAVE IT IN 2 WEEKS. SHE STATED SHE CAN PAY $5.00 PER WEEK FOR A NEBULIZER IF A COMPANY WILL ALLOW HER TO DO SO. RICARDO SPOKE TO MIS[place] WITH [facility] WHO STATED SHE WILL WORK OUT PAYMENT ARRANGEMENTS AND WORK WITH HER [place] MEDICAID ONCE IT BECOMES ACTIVE. BRIANNA STATED SHE WILL PROVIDE NEBULIZER FOR PATIENT TODAY. PATIENT NOTIFIED OF THIS INFORMATION. CM REQUESTED THAT RESPIRATORY PROVIDE PATIENT WITH A FEW DAY SAMPLES OF HER MEDICATIONS. SPOKE TO DR. PIZARRO REGARDING NEBULIZER ISSUE WELL. PATIENT HAS BEEN PROVIDED GOOD RX CARD AND SHE ALSO STATED SHE HAS ANOTHER SITE SHE USES FOR ASSISTANCE CALLED [employer] THAT SHE WILL CHECK PRICES OF THE MEDICATIONS ON WE.. SHE DENIED FURTHER DC NEEDS AT THIS TIME. CM FAXED REFERRAL TO [facility] AT [place]ISHAW[place]A'S REQUEST WELL. NEBULIZER WILL BE DELIVERED TO PATIENTS HOME LATER TODAY. YUMIKO ROBLES RN,CCM. DCP- Discharge Planning Updated by [email or web address]: Hui Delgado on 10/28/19 11:[address] Patient Name: SHY LUA Admission Status: ER Accout number: [id number] Admission Date: 10-26-2019 : 1975 Admission Diagnosis: Attending: LISY SORENSON Current LOS: 2 Anticipated DC Date: Planned Disposition: Home Primary Insurance: UNINSURED DISCOUNT PLAN Discharge Planning Comments: CM met with patient to complete initial dc planning assessment. CM educated patient on the CM role and verbal consent given by patient to complete assessment. Patient lives at home with her where she is independent with her care. At discharge patient plans to return home and feels this is a safe discharge. CM discussed availability of home health, rehab services, and medical equipment. Patient states she just moved here in August and has [place] Medicaid. She just got earlier this week. She stated she was suppose to have started to work but ended up in hospital. Her just got out of hospital last week. Patient has no means to get her medications. She stated the doctors told her it was very important she get her antibiotics and inhalers. CM gave patient a Good RX card and will check to see if any other assistance available. CM will continue to follow and will assist as needed with dc plans/needs. Button Tufting Machine Operator: Hui Delgado DCPIA - Discharge Planning Initial Assessment Updated by [email or web address]: Hui Delgado on 10/28/19 12:43 pm * Is the patient Alert and Oriented? Yes * How many steps to enter\exit or inside your home? * PCP NO PCP * Pharmacy NO PREFERENCE * Preadmission Environment Home with Family * ADLs Independent * Equipment None * List name and contact numbers for known caregivers / representatives who currently or will assist patient after discharge: MARIANO LUA - [facility] - [phone] * Verbal permission to speak to the caregivers and representatives has been obtained from the patient. Yes * Community resources currently utilized None * Additional services required to return to the preadmission environment? No * Can the patient safely return to the preadmission environment? Yes * Has this patient been hospitalized within the prior 30 days at any hospital? No Last DP export: 10/28/19 2:01 pm Patient Name: SHY LUA Page [id number] at 1532 All edits/amendments must be made on the electronic document DICTATION DATE: 10/28/19 1532 ENTERTAINMENT & MEDIA CORRESPONDENT: TERRELL 10/28/19 153 RPT#: [id number] DC DATE: STATUS: ADM IN [facility] [address] [facility] END OF REPORT
--- NOTE | 2019-10-28 15:42 | MORECARE ---
CASE MANAGEMENT DISCHARGE SUMMARY PATIENT: SHY LUA UNIT: [id number] ADM DATE: 10/26/19 AGE: 44 : 71 SEX: F ROOM/BED: D.2237 AUTHOR: HEATHER FARRIS PHYSICIAN: REFERRING PHYSICIAN: LISY SORENSON MD DATE OF SERVICE: 10/28/19 Discharge Plan Patient Name: SHY LUA Facility: [facility]:[place] : 1975 Planned Disposition: Home Anticipated Discharge Date: Discharge Date: Expected LOS: Initial Reviewer: [email or web address] Initial Review Date: 10/26/2019 Generated: 10/28/19 4:41 pm Comments DCP- Discharge Planning Updated by [email or web address]: Yumiko Robles on 10/28/19 2:[address] ANTONIA SIGNED BY PATIENT FOR [facility] AT HER NEBULIZER PROVIDER. FORM PLACED IN CHART AND COPY GIVEN TO THE PATIENT. CM SPOKE TO PHARMACY AND REQUESTED THAT #8 DUONEBS BE SENT HOME WITH THE PATIENT SO SHE CAN WORK ON GETTING MORE AFTER WEDNESDAY. YUMIKO ROBLES RN, CCM DCP- Discharge Planning Updated by [email or web address]: Yumiko Robles on 10/28/19 2:[address] DC PLAN: RETURN HOME WITH . DC NEEDS: NEBULIZER & MEDICATION ASSISTANCE. RICARDO MET [facility] PATIENT WHO STATED SHE DOES NOT HAVE [place] MEDICAID AT THIS TIME. SHE FEELS SHE WILL HAVE IT IN 2 WEEKS. SHE STATED SHE CAN PAY $5.00 PER WEEK FOR A NEBULIZER IF A COMPANY WILL ALLOW HER TO DO SO. RICARDO SPOKE TO BRIANNA WITH [facility] WHO STATED SHE WILL WORK OUT PAYMENT ARRANGEMENTS AND WORK WITH HER [place] MEDICAID ONCE IT BECOMES ACTIVE. BRIANNA STATED SHE WILL PROVIDE NEBULIZER FOR PATIENT TODAY. PATIENT NOTIFIED OF THIS INFORMATION. CM REQUESTED THAT RESPIRATORY PROVIDE PATIENT WITH A FEW DAY SAMPLES OF HER MEDICATIONS. SPOKE TO DR. PIZARRO REGARDING NEBULIZER ISSUE WELL. PATIENT HAS BEEN PROVIDED GOOD RX CARD AND SHE ALSO STATED SHE HAS ANOTHER SITE SHE USES FOR ASSISTANCE CALLED [employer] THAT SHE WILL CHECK PRICES OF THE MEDICATIONS ON WE.. SHE DENIED FURTHER DC NEEDS AT THIS TIME. CM FAXED REFERRAL TO [facility] AT [place]'S REQUEST WELL. NEBULIZER WILL BE DELIVERED TO PATIENTS HOME LATER TODAY. YUMIKO ROBLES RN,CCM. DCP- Discharge Planning Updated by [email or web address]: Hui Delgado on 10/28/19 11:[address] Patient Name: SHY LUA Admission Status: ER Accout number: [id number] Admission Date: 10-26-2019 : 1975 Admission Diagnosis: Attending: LISY SORENSON Current LOS: 2 Anticipated DC Date: Planned Disposition: Home Primary Insurance: UNINSURED DISCOUNT PLAN Discharge Planning Comments: CM met with patient to complete initial dc planning assessment. CM educated patient on the CM role and verbal consent given by patient to complete assessment. Patient lives at home with her where she is independent with her care. At discharge patient plans to return home and feels this is a safe discharge. CM discussed availability of home health, rehab services, and medical equipment. Patient states she just moved here in August and has [place] Medicaid. She just got earlier this week. She stated she was suppose to have started to work but ended up in hospital. Her just got out of hospital last week. Patient has no means to get her medications. She stated the doctors told her it was very important she get her antibiotics and inhalers. CM gave patient a Good RX card and will check to see if any other assistance available. CM will continue to follow and will assist as needed with dc plans/needs. Supervisor Film Processing: Hui Delgado DCPIA - Discharge Planning Initial Assessment Updated by [email or web address]: Hui Delgado on 10/28/19 12:43 pm * Is the patient Alert and Oriented? Yes * How many steps to enter\exit or inside your home? * PCP NO PCP * Pharmacy NO PREFERENCE * Preadmission Environment Home with Family * ADLs Independent * Equipment None * List name and contact numbers for known caregivers / representatives who currently or will assist patient after discharge: MARIANO LUA - [facility] - [phone] * Verbal permission to speak to the caregivers and representatives has been obtained from the patient. Yes * Community resources currently utilized None * Additional services required to return to the preadmission environment? No * Can the patient safely return to the preadmission environment? Yes * Has this patient been hospitalized within the prior 30 days at any hospital? No Last DP export: 10/28/19 2:32 pm Patient Name: SHY LUA Page 55375 at 1542 All edits/amendments must be made on the electronic document DICTATION DATE: 10/28/19 154 ELECTRICIAN ELEVATOR MAINTENANCE: TERRELL 10/28/19 154 RPT#: [id number] DC DATE: STATUS: ADM IN [facility] [address] [place] [address] END OF REPORT
--- NOTE | 2019-10-28 16:49 | NUR ---
DISCHARGE PAPERWORK SIGNED, ALL QUESTIONS ANSWERED. IV TO RIGHT SHOULDER DC'D, TIP INTACT. RESPIRATORY SAMPLES GIVEN, RESPIRATORY INSTRUCTED ON USE. ESCORTED OUT BY WHEELCHAIR.
--- NOTE | 2019-10-29 10:41 | MORECARE ---
CASE MANAGEMENT DISCHARGE SUMMARY PATIENT: SHY LUA UNIT: [id number] ADM DATE: 10/26/19 AGE: 44 : 71 SEX: F ROOM/BED: D.2237 AUTHOR: KALEIGH,DOC PHYSICIAN: REFERRING PHYSICIAN: LISY SORENSON MD DATE OF SERVICE: 10/29/19 Discharge Plan Patient Name: SHY LUA Facility: [facility]:[place] : 1975 Planned Disposition: Home Anticipated Discharge Date: Discharge Date: 10/28/2019 Expected LOS: Initial Reviewer: [email or web address] Initial Review Date: 10/26/2019 Generated: 10/29/19 11:41 am Comments DCP- Discharge Planning Updated by [email or web address]: Yumiko Robles on 10/28/19 2:[address] ANTONIA SIGNED BY PATIENT FOR [facility] AT HER NEBULIZER PROVIDER. FORM PLACED IN CHART AND COPY GIVEN TO THE PATIENT. CM SPOKE TO PHARMACY AND REQUESTED THAT #8 DUONEBS BE SENT HOME WITH THE PATIENT SO SHE CAN WORK ON GETTING MORE AFTER WEDNESDAY. YUMIKO ROBLES RN, [facility] DCP- Discharge Planning Updated by [email or web address]: Yumiko Robles on 10/28/19 2:[address] DC PLAN: RETURN HOME WITH . DC NEEDS: NEBULIZER & MEDICATION ASSISTANCE. RICARDO MET [facility] PATIENT WHO STATED SHE DOES NOT HAVE [place] MEDICAID AT THIS TIME. SHE FEELS SHE WILL HAVE IT IN 2 WEEKS. SHE STATED SHE CAN PAY $5.00 PER WEEK FOR A NEBULIZER IF A COMPANY WILL ALLOW HER TO DO SO. RICARDO SPOKE TO BRIANNA WITH [facility] WHO STATED SHE WILL WORK OUT PAYMENT ARRANGEMENTS AND WORK WITH HER [employer] MED[place] ONCE IT BECOMES ACTIVE. BRIANNA STATED SHE WILL PROVIDE NEBULIZER FOR PATIENT TODAY. PATIENT NOTIFIED OF THIS INFORMATION. RICARDO REQUESTED THAT RESPIRATORY PROVIDE PATIENT WITH A FEW DAY SAMPLES OF HER MEDICATIONS. SPOKE TO DR. PIZARRO REGARDING NEBULIZER ISSUE WELL. PATIENT HAS BEEN PROVIDED GOOD RX CARD AND SHE ALSO STATED SHE HAS ANOTHER SITE SHE USES FOR ASSISTANCE CALLED [employer] THAT SHE WILL CHECK PRICES OF THE MEDICATIONS ON WE.. SHE DENIED FURTHER DC NEEDS AT THIS TIME. RICARDO FAXED REFERRAL TO [facility] AT BRIANNA'S REQUEST WELL. NEBULIZER WILL BE DELIVERED TO PATIENTS HOME LATER TODAY. YUMIKO ROBLES RN,[facility]. DCP- Discharge Planning Updated by [email or web address]: Hui Delgado on 10/28/19 11:[address] Patient Name: SHY LUA Admission Status: ER Accout number: [id number] Admission Date: 10-26-2019 : 1975 Admission Diagnosis: Attending: LISY SORENSON Current LOS: 2 Anticipated DC Date: Planned Disposition: Home Primary Insurance: UNINSURED DISCOUNT PLAN Discharge Planning Comments: CM met with patient to complete initial dc planning assessment. CM educated patient on the CM role and verbal consent given by patient to complete assessment. Patient lives at home with her where she is independent with her care. At discharge patient plans to return home and feels this is a safe discharge. CM discussed availability of home health, rehab services, and medical equipment. Patient states she just moved here in August and has [place] Medicaid. She just got earlier this week. She stated she was suppose to have started to work but ended up in hospital. Her just got out of hospital last week. Patient has no means to get her medications. She stated the doctors told her it was very important she get her antibiotics and inhalers. CM gave patient a Good RX card and will check to see if any other assistance available. CM will continue to follow and will assist as needed with dc plans/needs. Port Patrol Officer: Hui Delgado DCPIA - Discharge Planning Initial Assessment Updated by [email or web address]: Hui Delgado on 10/28/19 12:43 pm * Is the patient Alert and Oriented? Yes * How many steps to enter\exit or inside your home? * PCP NO PCP * Pharmacy NO PREFERENCE * Preadmission Environment Home with Family * ADLs Independent * Equipment None * List name and contact numbers for known caregivers / representatives who currently or will assist patient after discharge: MARIANO LUA - [facility] - [phone] * Verbal permission to speak to the caregivers and representatives has been obtained from the patient. Yes * Community resources currently utilized None * Additional services required to return to the preadmission environment? No * Can the patient safely return to the preadmission environment? Yes * Has this patient been hospitalized within the prior 30 days at any hospital? No Last DP export: 10/28/19 2:42 pm Patient Name: SHY LUA Page [id number] at 1041 All edits/amendments must be made on the electronic document DICTATION DATE: 10/29/19 1041 HAT SPRAYER: TERRELL 10/29/19 1041 RPT#: [id number] DC DATE:10/28/19 STATUS: DIS IN [facility] [address] [place] [address] END OF REPORT
--- NOTE | 2019-10-30 15:22 | MORECARE ---
CASE MANAGEMENT DISCHARGE SUMMARY PATIENT: SHY LUA UNIT: [id number] ADM DATE: 10/26/19 AGE: 44 : 71 SEX: F ROOM/BED: D.2237 AUTHOR: KALEIGH,DOC PHYSICIAN: REFERRING PHYSICIAN: LISY SORENSON MD DATE OF SERVICE: 10/30/19 Discharge Plan Patient Name: SHY LUA Facility: [facility]:[place] : 1975 Planned Disposition: Home Anticipated Discharge Date: Discharge Date: 10/28/2019 Expected LOS: Initial Reviewer: [id number] Initial Review Date: 10/26/2019 Generated: 10/30/19 4:22 pm Comments DCP- Discharge Planning Updated by [id number]: Yumiko Robles on 10/28/19 2:[address] ANTONIA SIGNED BY PATIENT FOR KAYDEN AT HER NEBULIZER PROVIDER. FORM PLACED IN CHART AND COPY GIVEN TO THE PATIENT. CM SPOKE TO PHARMACY AND REQUESTED THAT #8 DUONEBS BE SENT HOME WITH THE PATIENT SO SHE CAN WORK ON GETTING MORE AFTER WEDNESDAY. YUMIKO ROBLES RN, [facility] DCP- Discharge Planning Updated by [id number]: Yumiko Robles on 10/28/19 2:[address] DC PLAN: RETURN HOME WITH . DC NEEDS: NEBULIZER & MEDICATION ASSISTANCE. RICARDO MET [facility] PATIENT WHO STATED SHE DOES NOT HAVE [place] MED[place]ID AT THIS TIME. SHE FEELS SHE WILL HAVE IT IN 2 WEEKS. SHE STATED SHE CAN PAY $5.00 PER WEEK FOR A NEBULIZER IF A COMPANY WILL ALLOW HER TO DO SO. RICARDO SPOKE TO BRIANNA WITH [facility] WHO STATED SHE WILL WORK OUT PAYMENT ARRANGEMENTS AND WORK WITH HER [employer] MEDICAID ONCE IT BECOMES ACTIVE. BRIANNA STATED SHE WILL PROVIDE NEBULIZER FOR PATIENT TODAY. PATIENT NOTIFIED OF THIS INFORMATION. RICARDO REQUESTED THAT RESPIRATORY PROVIDE PATIENT WITH A FEW DAY SAMPLES OF HER MEDICATIONS. SPOKE TO DR. PIZARRO REGARDING NEBULIZER ISSUE WELL. PATIENT HAS BEEN PROVIDED GOOD RX CARD AND SHE ALSO STATED SHE HAS ANOTHER SITE SHE USES FOR ASSISTANCE CALLED [employer] THAT SHE WILL CHECK PRICES OF THE MEDICATIONS ON WE.. SHE DENIED FURTHER DC NEEDS AT THIS TIME. RICARDO FAXED REFERRAL TO [facility] AT BRIANNA'S REQUEST WELL. NEBULIZER WILL BE DELIVERED TO PATIENTS HOME LATER TODAY. YUMIKO ROBLES RN,[facility]. DCP- Discharge Planning Updated by [id number]: Hui Delgado on 10/28/19 11:[address] Patient Name: SHY LUA Admission Status: ER Accout number: [id number] Admission Date: 10-26-2019 : 1975 Admission Diagnosis: Attending: LISY SORENSON Current LOS: 2 Anticipated DC Date: Planned Disposition: Home Primary Insurance: UNINSURED DISCOUNT PLAN Discharge Planning Comments: CM met with patient to complete initial dc planning assessment. CM educated patient on the CM role and verbal consent given by patient to complete assessment. Patient lives at home with her where she is independent with her care. At discharge patient plans to return home and feels this is a safe discharge. CM discussed availability of home health, rehab services, and medical equipment. Patient states she just moved here in August and has [place] Medicaid. She just got earlier this week. She stated she was suppose to have started to work but ended up in hospital. Her just got out of hospital last week. Patient has no means to get her medications. She stated the doctors told her it was very important she get her antibiotics and inhalers. CM gave patient a Good RX card and will check to see if any other assistance available. CM will continue to follow and will assist as needed with dc plans/needs. Precision Assembler: Hui Delgado DCPIA - Discharge Planning Initial Assessment Updated by [email or web address]: Hui Delgado on 10/28/19 12:43 pm * Is the patient Alert and Oriented? Yes * How many steps to enter\exit or inside your home? * PCP NO PCP * Pharmacy NO PREFERENCE * Preadmission Environment Home with Family * ADLs Independent * Equipment None * List name and contact numbers for known caregivers / representatives who currently or will assist patient after discharge: MARIANO LUA - SPOUSE - [phone] * Verbal permission to speak to the caregivers and representatives has been obtained from the patient. Yes * Community resources currently utilized None * Additional services required to return to the preadmission environment? No * Can the patient safely return to the preadmission environment? Yes * Has this patient been hospitalized within the prior 30 days at any hospital? No External Providers External Provider: OTHER-OTHER Next Contact Date: Service Request Date: Service Type: Resolution: Reviewer: Comments: Last DP export: 10/29/19 9:41 am Patient Name: SHY LUA Page [id number] at 1522 All edits/amendments must be made on the electronic document DICTATION DATE: 10/30/19 1522 ASSISTANT PROJECT MANAGER: TERRELL 10/30/19 1522 RPT#: [id number] DC DATE:10/28/19 STATUS: DIS IN [facility] [address] [place] [address] END OF REPORT
[2019-11-01 15:10] LABS: IMMUNOGLOBULIN E 192 IU/mL (6-495)
== END 2019-10-28 16:53 | disposition home or self-care (01) | DRG 190 ==
LOC: D.ER 02:04 → D.MS 03:13
PROVIDERS: Emergency Medicine; Family Medicine; Internal Medicine Pulmonary Disease; ADMIT Family Medicine; ATTEND Family Medicine
DX: J44.0 Chronic obstructive pulmonary disease with (acute) lower respiratory infection (principal); J96.00 Acute respiratory failure, unspecified whether with hypoxia or hypercapnia; E87.1 Hypo-osmolality and hyponatremia; F17.203 Nicotine dependence unspecified, with withdrawal; D68.2 Hereditary deficiency of other clotting factors; Z68.43 Body mass index [BMI] 50.0-59.9, adult; J20.9 Acute bronchitis, unspecified; J44.1 Chronic obstructive pulmonary disease with (acute) exacerbation; E11.40 Type 2 diabetes mellitus with diabetic neuropathy, unspecified; I25.10 Atherosclerotic heart disease of native coronary artery without angina pectoris; I10 Essential (primary) hypertension; E78.5 Hyperlipidemia, unspecified; G89.4 Chronic pain syndrome; E66.9 Obesity, unspecified; D50.9 Iron deficiency anemia, unspecified; R55 Syncope and collapse; R00.0 Tachycardia, unspecified; Z86.718 Personal history of other venous thrombosis and embolism; Z79.01 Long term (current) use of anticoagulants; Z86.711 Personal history of pulmonary embolism

== ENCOUNTER 2019-10-30 21:18 | Observation (INO) | payer SELFPAY ==
[~2019-10-30] VITALS: Ht 160 cm; Wt 129.7 kg
[~2019-10-30 21:18] MED LIST changes: +ALBUTEROL SULF8.5 GM INH; +FOLIC ACID1 MG PO; +IPRAT-ALBUT 0.5-3 ML UPD; +OMNICEF300 MG PO; +PREDNISONE10 MG PO; +SINGULAIR10 MG PO; +SYMBICORT 16010.2 GM INH; +VIBRAMYCIN 100100 MG PO
[2019-10-30 22:55] LABS: APTT 23.1 SECONDS (22.8-39.4); HEMOGLOBIN 11.5 g/dL (12-16); INR 0.9 (0.85-1.17); MCH 23.6 pg (26.0-34.0); MCHC 30.3 g/dL (31.0-37.0); PLATELET COUNT 466 10x3/uL (130-400); PROTIME 11.7 SECONDS (11.6-15.0); RBC 4.87 10x6/uL (4.00-5.40); RDW 18.7 % (11.5-14.5)
[2019-10-30 22:56] LABS: CALC OSMOLALITY 279 mosm/kg (275-300); CARBON DIOXIDE 27.8 mmol/L (21.0-32.0); CHLORIDE - SERUM 100 mmol/L (98-107); CREATININE - SERUM 1.2 mg/dL (0.6-1.3); POTASSIUM - SERUM 4.2 mmol/L (3.5-5.1); SODIUM 135 mmol/L (136-145); UREA NITROGEN 24 mg/dL (7-18); eGFR NON AFRICAN AMERICAN 51 mL/min (90-120)
[2019-10-30 23:01] LABS: GLUCOSE 206 mg/dL (74-106)
[2019-10-30 23:13] LABS: ALKALINE PHOSPHATASE 75 U/L (46-116); ALT (SGPT) 36 U/L (10-68); BILIRUBIN - TOTAL 0.16 mg/dL (0.2-1.3); CKMB 0.3 U/L (0.0-3.6); CREATINE KINASE 55 UL (21-215); PRO BNP 28 pg/mL (0-125); PROTEIN - SERUM 6.8 g/dL (6.4-8.2)
[2019-10-30 23:17] LABS: TROPONIN-I < 0.017 ng/mL (0.000-0.060)
[2019-10-30 23:42] LABS: APPEARANCE CLEAR (CLEAR); BILIRUBIN NEGATIVE (NEGATIVE); COLOR YELLOW (YELLOW); GLUCOSE 100 mg/dL (NEGATIVE); KETONE NEGATIVE (NEGATIVE); NITRITE NEGATIVE (NEGATIVE); PROTEIN NEGATIVE (NEGATIVE); UROBILINOGEN NORMAL (NORMAL)
[2019-10-30 23:43] LABS: BACTERIA NONE SEEN /hpf (NEGATIVE); EPITHELIAL CELLS 0-5 /hpf (0-5); HCG URINE NEGATIVE (NEGATIVE); RED CELLS - URINE 0-5 /hpf (0-5); WHITE CELLS - URINE 0-5 /hpf (NEGATIVE)
[2019-10-30 23:47] LABS: LYMPHOCYTES 21 % (15-50); MONOCYTES 6 % (2-11); NEUTROPHILS 70 % (40-80); PLATELET ESTIMATE NORMAL; SMUDGE CELLS 1+
[2019-10-31 00:39] VITALS: BP 130/89
--- NOTE | 2019-10-31 00:47 | NUR ---
REC'D PATIENT TO ROOM. NO S/S OF DISTRESS. COMPLETED PATIENT'S ADMISSION. PATIENT DENIES OTHER NEEDS AT THIS TIME. BED IN LOWEST POSITION AND CALL LIGHT WITHIN REACH. ENCOURAGED THE PATIENT TO CALL IF SHE HAS NEEDS. WILL CONTINUE TO MONITOR.
[2019-10-31 00:51] VITALS: BP 131/71; BMI 50.7
[2019-10-31 04:00] VITALS: BP 128/71
--- NOTE | 2019-10-31 08:00 | NUR ---
ASSESSMENT PER FLOW SHEET. PT IS WITHOUT DISTRESS.CALL LIGHT IN REACH.DENIES NEEDS
[2019-10-31 08:01] VITALS: BP 126/76
[2019-10-31 09:44] VITALS: Ht 160 cm; Wt 129.7 kg
--- NOTE | 2019-10-31 13:42 | MORECARE ---
CASE MANAGEMENT DISCHARGE SUMMARY PATIENT: SHY LUA UNIT: [id number] ADM DATE: 10/30/19 AGE: 44 : 71 SEX: F ROOM/BED: D.[facility] AUTHOR: HEATHER FARRIS PHYSICIAN: REFERRING PHYSICIAN: DOMENIC LEDBETTER MD DATE OF SERVICE: 10/31/19 Discharge Plan Patient Name: SHY LUA Facility: [facility]:[place] : 1975 Planned Disposition: Home or Self Care Anticipated Discharge Date: 10/31/19 Discharge Date: Expected LOS: 1 Initial Reviewer: [email or web address] Initial Review Date: 10/31/2019 Generated: 10/31/19 2:42 pm Patient Name: SHY LUA Page [id number] at 1342 All edits/amendments must be made on the electronic document DICTATION DATE: 10/31/19 1342 SURVEILLANCE OPERATOR: TERRELL 10/31/19 1342 RPT#: [id number] DC DATE: STATUS: ADM IN [facility] [address] [place] [address] END OF REPORT
--- NOTE | 2019-10-31 13:51 | MORECARE ---
CASE MANAGEMENT DISCHARGE SUMMARY PATIENT: SHY LUA UNIT: [id number] ADM DATE: 10/30/19 AGE: 44 : 71 SEX: F ROOM/BED: D.[facility] AUTHOR: HEATHER FARRIS PHYSICIAN: REFERRING PHYSICIAN: DOMENIC LEDBETTER MD DATE OF SERVICE: 10/31/19 Discharge Plan Patient Name: SHY LUA [facility] [facility] 1975 Planned Disposition: Home or Self Care Anticipated Discharge Date: 10/31/19 Discharge Date: Expected LOS: 1 Initial Reviewer: [email or web address] Initial Review Date: 10/31/2019 Generated: 10/31/19 2:50 pm DCPIA - Discharge Planning Initial Assessment Updated by [email or web address]: Ann Marie Billingsley on 10/31/19 1:42 pm * Is the patient Alert and Oriented? Yes * PCP None * [facility] * Preadmission Environment Home with Family * ADLs Independent * Equipment Nebulizer * List name and contact numbers for known caregivers / representatives who currently or will assist patient after discharge: Gamaliel Lua - spouse - [phone] or [phone] * Verbal permission to speak to the caregivers and representatives has been obtained from the patient. Yes * Community resources currently utilized None * Additional services required to return to the preadmission environment? Yes * Can the patient safely return to the preadmission environment? Yes * Has this patient been hospitalized within the prior 30 days at any hospital? Yes Last DP export: 10/31/19 12:42 pm Patient Name: SHY LUA Page 13181 at 1351 All edits/amendments must be made on the electronic document DICTATION DATE: 10/31/19 1350 CIVIL SERVICE CLERK: TERRELL 10/31/19 1350 RPT#: [id number] DC DATE: STATUS: ADM IN [facility] [address] [place] [address] END OF REPORT
--- NOTE | 2019-10-31 13:59 | MORECARE ---
CASE MANAGEMENT DISCHARGE SUMMARY PATIENT: SHY LUA UNIT: [id number] ADM DATE: 10/30/19 AGE: 44 : 71 SEX: F ROOM/BED: D.[facility] AUTHOR: KALEIGHDOC PHYSICIAN: REFERRING PHYSICIAN: DOMENIC LEDBETTER MD DATE OF SERVICE: 10/31/19 Discharge Plan Patient Name: SHY LUA Facility: [facility]:[place] : 1975 Planned Disposition: Home or Self Care Anticipated Discharge Date: 10/31/19 Discharge Date: Expected LOS: 1 Initial Reviewer: [id number] Initial Review Date: 10/31/2019 Generated: 10/31/19 2:58 pm Comments DCP- Discharge Planning Updated by [email or web address]: Ann Marie Billingsley on 10/31/19 12:[address] Patient Name: SHY LUA Admission Status: ER Accout number: [id number] Admission Date: 10-30-2019 : 1975 Admission Diagnosis: Attending: KEL Current LOS: 1 Anticipated DC Date: 10-31-2019 Planned Disposition: Home or Self Care Primary Insurance: UNINSURED DISCOUNT PLAN Discharge Planning Comments: CM met with patient to complete initial dc planning assessment. CM educated patient on the CM role and verbal consent given by patient to complete assessment. Patient lives at home with her spouse. At discharge patient plans to return and feels this is a safe discharge. CM discussed availability of home health, rehab services, and medical equipment. Patient states she cannot afford her medications. States [facility] called and states her new meds would be over 1000 dollars. I priced them at [facility] and received approval for the following meds: Cefdimer 300mg PO BID #14 $15.23 doxycycline 100MG PO BID #14 $19.26 Ipratropium/Albuterol Sulfate 0.5-3mg/ 3ml QID #120 $27.02 Singulair 10mg PO Q HS #30 $16.20 Prednisone Taper 10mg PO #30 $16.65 All meds called in as written to [facility] and approved by Claire Pearson. She was unable to approve Symbicort 160-4.5 for $365.44. I called and spoke to Dr. Goodman's nurse, they will call the patient when their sample inhalers arrive. I informed the patient that [facility], paid for by Case Management and ready for pickle maker. I also instructed her to make an appointment at the [facility]. She states she has their number and will make an appointment. She has been instructed to fill out her Medicaid application. She states she has an appointment to do this after she receives her Food [place] next week. I provided her with another Good Rx card. CM will continue to follow and assist with discharge planning/needs. Psychic Reader: Ann Marie Billingsley DCPIA - Discharge Planning Initial Assessment Updated by [email or web address]: Ann Mraie Billingsley on 10/31/19 1:42 pm * Is the patient Alert and Oriented? Yes * PCP None * [facility] * Preadmission Environment Home with Family * ADLs Independent * Equipment Nebulizer * List name and contact numbers for known caregivers / representatives who currently or will assist patient after discharge: Gamaliel Ricardo - spouse - [phone] or [phone] * Verbal permission to speak to the caregivers and representatives has been obtained from the patient. Yes * Community resources currently utilized None * Additional services required to return to the preadmission environment? Yes * Can the patient safely return to the preadmission environment? Yes * Has this patient been hospitalized within the prior 30 days at any hospital? Yes Last DP export: 10/31/19 12:51 pm Patient Name: SHY ULA Page 66752 at 1359 All edits/amendments must be made on the electronic document DICTATION DATE: 10/31/19 1358 DRUG ENFORCEMENT ADMINISTRATION AGENT: TERRELL 10/31/19 1358 RPT#: [id number] DC DATE: STATUS: ADM IN [facility] [address] [place] [address] END OF REPORT
[2019-10-31 14:03] VITALS: BP 134/68
--- NOTE | 2019-10-31 15:08 | MORECARE ---
CASE MANAGEMENT DISCHARGE SUMMARY PATIENT: SHY LUA UNIT: [id number] ADM DATE: 10/30/19 AGE: 44 : 71 SEX: F ROOM/BED: D.2232 AUTHOR: KALEIGH,DOC PHYSICIAN: REFERRING PHYSICIAN: DOMENIC LEDBETTER MD DATE OF SERVICE: 10/31/19 Discharge Plan Patient Name: SHY LUA Facility: [facility]:[place] : 1975 Planned Disposition: Home or Self Care Anticipated Discharge Date: 10/31/19 Discharge Date: Expected LOS: 1 Initial Reviewer: [email or web address] Initial Review Date: 10/31/2019 Generated: 10/31/19 4:08 pm Comments DCP- Discharge Planning Updated by [email or web address]: Ann Marie Melotonny on 10/31/19 2:[address] Room air saturation is 95% and 94% with exertion. She does not qualify for oxygen. She has an overnight oxygen saturation set up for [facility] with [facility]. CM will continue to follow and assist with discharge planning/needs. DCP- Discharge Planning Updated by [email or web address]: Ann Marie Billingsley on 10/31/19 12:[address] Patient Name: SHY LUA Admission Status: ER Accout number: [id number] Admission Date: 10-30-2019 : 1975 Admission Diagnosis: Attending: KEL Current LOS: 1 Anticipated DC Date: 10-31-2019 Planned Disposition: Home or Self Care Primary Insurance: UNINSURED DISCOUNT PLAN Discharge Planning Comments: CM met with patient to complete initial dc planning assessment. CM educated patient on the CM role and verbal consent given by patient to complete assessment. Patient lives at home with her spouse. At discharge patient plans to return and feels this is a safe discharge. CM discussed availability of home health, rehab services, and medical equipment. Patient states she cannot afford her medications. [facility] meds would be over 1000 dollars. I priced them at [facility] and received approval for the following meds: Cefdimer 300mg PO BID #14 $15.23 doxycycline 100MG PO BID #14 $19.26 Ipratropium/Albuterol Sulfate 0.5-3mg/ 3ml QID #120 $27.02 Singulair 10mg PO Q HS #30 $16.20 Prednisone Taper 10mg PO #30 $16.65 All meds called in as written to [facility] and approved by Claire Pearson. She was unable to approve Symbicort 160-4.5 for $365.44. I called and spoke to Dr. Goodman's nurse, they will call the patient when their sample inhalers arrive. I informed the patient that the other new medications are at [facility] on [facility], paid for by Case Management and ready for warehouse order picker. I also instructed her to make an appointment at the [facility]. She states she has their number and will make an appointment. She has been instructed to fill out her Medicaid application. She states she has an appointment to do this after she receives her Food [place] next week. I provided her with another Good Rx card. CM will continue to follow and assist with discharge planning/needs. Planning Advisor: Ann Marie Billingsley DCPIA - Discharge Planning Initial Assessment Updated by [email or web address]: Ann Marie Billingsley on 10/31/19 1:42 pm * Is the patient Alert and Oriented? Yes * PCP None * [facility] * Preadmission Environment Home with Family * ADLs Independent * Equipment Nebulizer * List name and contact numbers for known caregivers / representatives who currently or will assist patient after discharge: Gamaliel Lua - spouse - [phone] or [phone] * Verbal permission to speak to the caregivers and representatives has been obtained from the patient. Yes * Community resources currently utilized None * Additional services required to return to the preadmission environment? Yes * Can the patient safely return to the preadmission environment? Yes * Has this patient been hospitalized within the prior 30 days at any hospital? Yes Last DP export: 10/31/19 12:59 pm Patient Name: SHY LUA Page 05816 at 1508 All edits/amendments must be made on the electronic document DICTATION DATE: 10/31/191507 DIRECTOR OF STRATEGIC SOURCING: TERRELL 10/31/191507 RPT#: [id number] DC DATE: STATUS: ADM IN [facility] [address] [place] [address] END OF REPORT
--- NOTE | 2019-10-31 15:39 | NUR ---
IV DCD WITH CATH TIP INTACT. DISCHARGE INSTRUCTIONS,STATES UNDERSTANDING.LEFT UNIT VIA WHEELCHAIR,
--- NOTE | 2019-11-01 18:19 | MORECARE ---
CASE MANAGEMENT DISCHARGE SUMMARY PATIENT: SHY LUA UNIT: [id number] ADM DATE: 10/30/19 AGE: 44 : 71 SEX: F ROOM/BED: D.2232 AUTHOR: KALEIGH,DOC PHYSICIAN: REFERRING PHYSICIAN: DOMENIC LEDBETTER MD DATE OF SERVICE: 11/01/19 Discharge Plan Patient Name: SHY LUA Facility: [facility]:[place] : 1975 Planned Disposition: Home or Self Care Anticipated Discharge Date: 10/31/19 Discharge Date: 10/31/2019 Expected LOS: 1 Initial Reviewer: [email or web address] Initial Review Date: 10/31/2019 Generated: 11/01/19 7:18 pm Comments DCP- Discharge Planning Updated by [email or web address]: Ann Marie Billingsley on 10/31/19 2:[address] Room air saturation is 95% and 94% with exertion. She does not qualify for oxygen. She has an overnight oxygen saturation set up for tonight with [facility]. CM will continue to follow and assist with discharge planning/needs. DCP- Discharge Planning Updated by [email or web address]: Ann Marie Billingsley on 10/31/19 12:[address] Patient Name: SHY LUA Admission Status: ER Accout number: [id number] Admission Date: 10-30-2019 : 1975 Admission Diagnosis: Attending: KEL Current LOS: 1 Anticipated DC Date: 10-31-2019 Planned Disposition: Home or Self Care Primary Insurance: UNINSURED DISCOUNT PLAN Discharge Planning Comments: CM met with patient to complete initial dc planning assessment. CM educated patient on the CM role and verbal consent given by patient to complete assessment. Patient lives at home with her spouse. At discharge patient plans to return and feels this is a safe discharge. CM discussed availability of home health, rehab services, and medical equipment. Patient states she cannot afford her medications. States [facility] called and states her new meds would be over 1000 dollars. I priced them at [facility] and received approval for the following meds: Cefdimer 300mg PO BID #14 $15.23 doxycycline 100MG PO BID #14 $19.26 Ipratropium/Albuterol Sulfate 0.5-3mg/ 3ml QID #120 $27.02 Singulair 10mg PO Q HS #30 $16.20 Prednisone Taper 10mg PO #30 $16.65 All meds called in as written to [facility] and approved by Claire Pearson. She was unable to approve Symbicort 160-4.5 for $365.44. I called and spoke to Dr. Goodman's nurse, they will call the patient when their sample inhalers arrive. I informed the patient that the other new medications are at [facility] on [facility], paid for by Case Management and ready for meat pickler. I also instructed her to make an appointment at the [facility]. She states she has their number and will make an appointment. She has been instructed to fill out her Medicaid application. She states she has an appointment to do this after she receives her Food [place] next week. I provided her with another Good Rx card. CM will continue to follow and assist with discharge planning/needs. Social Secretary: Ann Marie Billingsley [facility] Initial Assessment Updated by [email or web address]: Ann Marie Billingsley on 10/31/19 1:42 pm * Is the patient Alert and Oriented? Yes * PCP None * [facility] * Preadmission Environment Home with Family * ADLs Independent * Equipment Nebulizer * List name and contact numbers for known caregivers / representatives who currently or will assist patient after discharge: Gamaliel Lua - spouse - [phone] or [phone] * Verbal permission to speak to the caregivers and representatives has been obtained from the patient. Yes * Community resources currently utilized None * Additional services required to return to the preadmission environment? Yes * Can the patient safely return to the preadmission environment? Yes * Has this patient been hospitalized within the prior 30 days at any hospital? Yes Last DP export: 10/31/19 2:08 pm Patient Name: SHY LUA Page 62953 at 1819 All edits/amendments must be made on the electronic document DICTATION DATE: 11/01/191817 ELECTRICAL SIGN WIRER: TERRELL 11/01/191817 RPT#: [id number] DC DATE:10/31/19 STATUS: DIS IN [place] [address] [place] [address] END OF REPORT
== END 2019-10-31 15:40 | disposition home or self-care (01) ==
LOC: D.ER 21:18 → D.MS 23:18 → OBSVTIME 23:18 → D.MS 10-31 15:40
PROVIDERS: Family Medicine; ADMIT Family Medicine; ATTEND Family Medicine
DX: J96.20 Acute and chronic respiratory failure, unspecified whether with hypoxia or hypercapnia (principal); E61.1 Iron deficiency; E87.1 Hypo-osmolality and hyponatremia; F17.203 Nicotine dependence unspecified, with withdrawal; E11.40 Type 2 diabetes mellitus with diabetic neuropathy, unspecified; I10 Essential (primary) hypertension; E78.5 Hyperlipidemia, unspecified; G89.29 Other chronic pain; E66.9 Obesity, unspecified

== ENCOUNTER 2020-01-03 12:45 | Inpatient (IN) | payer BC ==
[~2020-01-03] VITALS: Ht 160 cm; Wt 129.7 kg
[2020-01-03] MEDS ORDERED: CARDIZEM120 MG PO (12:52)
--- NOTE | 2020-01-03 13:00 | NUR ---
PT REPORTS THAT SHE TOOK (4) 81 MG ASA AT HOME PRIOR TO COMING TO THE ED. TOTAL 324 MG.
[2020-01-03 13:42] VITALS: BP 122/98
[2020-01-03 13:55] VITALS: BP 117/93
--- NOTE | 2020-01-03 13:55 | NUR ---
FLU SWAB TO LAB
[2020-01-03 14:20] LABS: BASOPHILS 0.4 % (0-2); EOSINOPHILS 3.8 % (0-7); HEMATOCRIT 36.9 % (36.0-48.0); IMMATURE GRANULOCYTES 0.2 % (0-5); LYMPHOCYTES 20.9 % (15-50); MCHC 29.8 g/dL (31.0-37.0); MCV 73.7 fL (80.0-100.0); NEUTROPHILS 65.7 % (40-80); RBC 5.01 10x6/uL (4.00-5.40); RDW 18.3 % (11.5-14.5); WBC 8.4 10x3/uL (4.8-10.8)
[2020-01-03 14:22] LABS: CALC OSMOLALITY 278 mosm/kg (275-300); CALCIUM 8.5 mg/dL (8.5-10.1); CARBON DIOXIDE 25.4 mmol/L (21.0-32.0); CHLORIDE - SERUM 102 mmol/L (98-107); CREATININE - SERUM 0.8 mg/dL (0.6-1.3); GLUCOSE 145 mg/dL (74-106); SODIUM 138 mmol/L (136-145); UREA NITROGEN 12 mg/dL (7-18); eGFR NON AFRICAN AMERICAN 82 mL/min (90-120)
[2020-01-03 14:29] LABS: PLATELET COUNT 323 10x3/uL (130-400)
[2020-01-03 14:36] LABS: ALBUMIN 3.2 g/dL (3.4-5.0); ALKALINE PHOSPHATASE 63 U/L (30-120); ALT (SGPT) 33 U/L (10-68); BILIRUBIN - TOTAL 0.35 mg/dL (0.2-1.3); CKMB 0.1 U/L (0.0-3.6); CREATINE KINASE 56 UL (21-215); TROPONIN-I < 0.017 ng/mL (0.000-0.060)
[2020-01-03 14:42] VITALS: BP 135/105
[2020-01-03 14:53] VITALS: BP 145/99
[2020-01-03 14:53] LABS: % SATURATION 6 % (15-55); IRON 26 ug/dl (35-150); TOTAL IRON BIND CAPACITY 420 ug/dl (260-445); UNSAT IRON BIND CAPACITY 394 ug/dl (150-375)
[2020-01-03 17:14] VITALS: BP 178/99; BMI 50.7
--- NOTE | 2020-01-03 19:22 | NUR ---
RECEIVED BEDSIDE REPORT. PATIENT IS ALERT AND ORIENTED, RESPIRATIONS ARE EVEN AND UNLABORED. NO S/S OF DISTRESS. NO C/OPAIN. CALL LIGHT WITHIN REACH. WILL CPOC.
[2020-01-03 19:32] LABS: CKMB 0.2 U/L (0.0-3.6); CREATINE KINASE 69 UL (21-215); TROPONIN-I < 0.017 ng/mL (0.000-0.060)
[2020-01-03 20:00] VITALS: BP 158/136
[2020-01-04] VITALS: BP 107/58
[2020-01-04 01:16] LABS: CKMB 0.4 U/L (0.0-3.6); CREATINE KINASE 67 UL (21-215); TROPONIN-I < 0.017 ng/mL (0.000-0.060)
[2020-01-04 04:00] VITALS: BP 142/97
[2020-01-04 06:32] LABS: BASOPHILS 0 % (0-2); EOSINOPHILS 0 % (0-7); HEMATOCRIT 34.9 % (36.0-48.0); HEMOGLOBIN 10.5 g/dL (12-16); IMMATURE GRANULOCYTES 0.4 % (0-5); LYMPHOCYTES 8.7 % (15-50); MCH 22.3 pg (26.0-34.0); MCHC 30.1 g/dL (31.0-37.0); MCV 74.3 fL (80.0-100.0); MONOCYTES 5.3 % (2-11); NEUTROPHILS 85.6 % (40-80); PLATELET COUNT 340 10x3/uL (130-400); RDW 18.9 % (11.5-14.5)
[2020-01-04 06:38] LABS: WBC 11.1 10x3/uL (4.8-10.8)
[2020-01-04 06:52] LABS: APTT 24.7 SECONDS (22.8-39.4); PROTIME 13.1 SECONDS (11.6-15.0)
[2020-01-04 07:04] LABS: ANION GAP 15.8 mmol/L (8-16); CALCIUM 9.1 mg/dL (8.5-10.1); CARBON DIOXIDE 24.5 mmol/L (21.0-32.0); MAGNESIUM - SERUM 2.3 mg/dL (1.8-2.4); PHOSPHOROUS 4.3 mg/dL (2.5-4.9); POTASSIUM - SERUM 4.3 mmol/L (3.5-5.1); THYROID STIMULATING HORMONE 0.35 uIU/mL (0.36-3.74)
[2020-01-04 07:11] LABS: CREATININE - SERUM 1.3 mg/dL (0.6-1.3)
--- NOTE | 2020-01-04 07:15 | NUR ---
RECEIVED PT IN BED EYES CLOSED RESP UNLABORED SKIN W/D NAD NOTED
[2020-01-04 08:57] VITALS: BP 123/67
[2020-01-04 12:02] VITALS: BP 130/65
[2020-01-04 13:18] VITALS: Ht 160 cm; Wt 129.7 kg
[2020-01-04 17:07] VITALS: BP 108/73
[2020-01-04 18:22] LABS: BILIRUBIN NEGATIVE (NEGATIVE); GLUCOSE 1000 mg/dL (NEGATIVE); KETONE NEGATIVE (NEGATIVE); NITRITE POSITIVE (NEGATIVE); UROBILINOGEN NORMAL (NORMAL)
[2020-01-04 18:29] LABS: UDS - AMPHET NEGATIVE QUAL (NEGATIVE); UDS - BARB NEGATIVE QUAL (NEGATIVE); UDS - BENZO NEGATIVE QUAL (NEGATIVE); UDS - COCAINE NEGATIVE QUAL (NEGATIVE); UDS - OPIATE POSITIVE QUAL (NEGATIVE); UDS - PCP NEGATIVE QUAL (NEGATIVE); UDS - THC NEGATIVE QUAL (NEGATIVE)
[2020-01-04 18:31] LABS: BACTERIA FEW /hpf (NEGATIVE); EPITHELIAL CELLS 0-5 /hpf (0-5); RED CELLS - URINE 0-5 /hpf (0-5); WHITE CELLS - URINE 0-5 /hpf (NEGATIVE)
[2020-01-04 20:00] VITALS: BP 163/122
[2020-01-05] VITALS: BP 112/68
[2020-01-05 04:00] VITALS: BP 101/12
[2020-01-05 04:59] LABS: BASOPHILS 0.1 % (0-2); EOSINOPHILS 0.7 % (0-7); HEMATOCRIT 34.1 % (36.0-48.0); HEMOGLOBIN 10.2 g/dL (12-16); IMMATURE GRANULOCYTES 0.4 % (0-5); LYMPHOCYTES 18.5 % (15-50); MCH 22.3 pg (26.0-34.0); MCHC 29.9 g/dL (31.0-37.0); MCV 74.6 fL (80.0-100.0); MEAN PLATELET VOLUME 8.5 fL (7.4-10.4); MONOCYTES 6.5 % (2-11); NEUTROPHILS 73.8 % (40-80); PLATELET COUNT 297 10x3/uL (130-400); RBC 4.57 10x6/uL (4.00-5.40); WBC 14.9 10x3/uL (4.8-10.8)
[2020-01-05 05:27] LABS: % SATURATION 11 % (15-55); IRON 41 ug/dl (35-150); TOTAL IRON BIND CAPACITY 368 ug/dl (260-445); UNSAT IRON BIND CAPACITY 327 ug/dl (150-375)
[2020-01-05 05:54] LABS: ANION GAP 12.2 mmol/L (8-16); CALCIUM 9.1 mg/dL (8.5-10.1); CREATININE - SERUM 1.1 mg/dL (0.6-1.3); POTASSIUM - SERUM 4.2 mmol/L (3.5-5.1)
[2020-01-05 05:55] LABS: PHOSPHOROUS 5.4 mg/dL (2.5-4.9)
[2020-01-05 08:52] VITALS: BP 113/76
[2020-01-05] MEDS ORDERED: LEVOFLOXACIN500 MG PO (10:21)
[2020-01-05] MEDS ORDERED: PRADAXA75 MG PO (10:21)
[2020-01-05] MEDS ORDERED: CARDIZEM CD240 MG PO (10:22)
[2020-01-05] MEDS ORDERED: GLUCOPHAGE500 MG PO (10:22)
[2020-01-05] MEDS ORDERED: PROTONIX40 MG PO (10:23)
--- NOTE | 2020-01-05 16:15 | NUR ---
REVIWED DISCHARGE INSTRUCTIONS WITH PT STATES UNDERSTANDING COPY GIVEN DCD SALINE LOCK TO RFA WITH IV CATHETER INTACT SITE FREE OF REDNESS OR EDEMA PT DISCHARGED HOME IN STABLE CONDITION WITH ALL PERSONAL BELONGINGS LEFT VIA W/C
--- NOTE | 2020-01-05 16:36 | MORECARE ---
CASE MANAGEMENT DISCHARGE SUMMARY PATIENT: SHY LUA UNIT: [id number] ADM DATE: 01/04/20 AGE: 44 : 71 SEX: F ROOM/BED: D.5000 AUTHOR: KALEIGH,DOC PHYSICIAN: REFERRING PHYSICIAN: PORFIRIO BILLS MD DATE OF SERVICE: 01/05/20 Discharge Plan Patient Name: SHY LUA Facility: [facility]:[place] : 1975 Planned Disposition: Home Anticipated Discharge Date: 01/05/20 Discharge Date: 01/05/2020 Expected LOS: 1 Initial Reviewer: [email or web address] Initial Review Date: 01/05/2020 Generated: 01/05/20 5:35 pm Comments DCP- Discharge Planning Updated by [email or web address]: Johnathan Tsang on 01/05/20 3:[address] Patient Name: SHY LUA Admission Status: ER Accout number: [id number] Admission Date: 01-04-2020 : 1975 Admission Diagnosis: Attending: PORFIRIO BILLS Current LOS: 1 Anticipated DC Date: 01-05-2020 Planned Disposition: Home Primary Insurance: [employer] EXCHANGE Discharge Planning Comments: CM MET WITH PT IN ROOM TO DISCUSS DISCHARGE PLANNING AND NEEDS. PT REPORTS LIVING AT HOME INDEPENDENTLY WITH HER SPOUSE. PT HAS NEBULIZER AND HOME OXYGEN FROM [facility]. PT HAS NO OUTSIDE SERVICES ASSISTING IN THE HOME. CM DISCUSSED AVAILABILITY OF HOME HEALTH, REHAB SERVICES AND MEDICAL EQUIPMENT. PT DENIES DISCHARGE NEEDS, REPORTS HER SPOUSE WILL PICK HER UP FOR DISCHARGE HOME. CM PROVIDED PT A WORK EXCUSE REQUESTED BY PT, COPY TO CHART. CALIBRATION SPECIALIST NURSE NOTIFIED. Rubber Stamp Maker: Johnathan Tsang DCPIA - Discharge Planning Initial Assessment Updated by [email or web address]: Johnathan Tsang on 01/05/20 4:31 pm * Is the patient Alert and Oriented? Yes * How many steps to enter\exit or inside your home? NONE * PCP DR. SANDERS, APPT 01-12-20 AT 1430 HOURS NEW PATIENT * [facility] [address] * Preadmission Environment Home with Family * ADLs Independent * Equipment Nebulizer Oxygen * Other Equipment HOME OXYGEN ONLY [facility] - MEDICAL EQUIPMENT PROVIDER * List name and contact numbers for known caregivers / representatives who currently or will assist patient after discharge: EVANGELIST LUA, SPOUSE, * Verbal permission to speak to the caregivers and representatives has been obtained from the patient. N/A * Community resources currently utilized None * Please name any agencies selected above. NONE * Additional services required to return to the preadmission environment? No * Can the patient safely return to the preadmission environment? Yes * Has this patient been hospitalized within the prior 30 days at any hospital? No Patient Name: SHY LUA Page 05763 at 1636 All edits/amendments must be made on the electronic document DICTATION DATE: 01/05/201634 MAINTENANCE MECHANIC SUPERVISOR: TERRELL 01/05/201634 RPT#: [id number] DC DATE:01/05/20 STATUS: DIS IN [facility] [address] [place] [address] END OF REPORT
--- NOTE | 2020-01-05 17:21 | MORECARE ---
CASE MANAGEMENT DISCHARGE SUMMARY PATIENT: SHY LUA UNIT: [id number] ADM DATE: 01/04/20 AGE: 44 : [birth year] SEX: F ROOM/BED: D.8921 AUTHOR: KALEIGH,DOC PHYSICIAN: REFERRING PHYSICIAN: PORFIRIO BILLS MD DATE OF SERVICE: 01/05/20 Discharge Plan Patient Name: SHY LUA Facility: [facility]:[place] : 1975 Planned Disposition: Home Anticipated Discharge Date: 01/05/20 Discharge Date: 01/05/2020 Expected LOS: 1 Initial Reviewer: [email or web address] Initial Review Date: 01/05/2020 Generated: 01/05/20 6:20 pm Comments DCP- Discharge Planning Updated by [email or web address]: Johnathan Tsang on 01/05/20 4:[address] Patient Name: SHY LUA Admission Status: ER Accout number: [id number] Admission Date: 01-04-2020 : 1975 Admission Diagnosis: Attending: PORFIRIO BILLS Current LOS: 1 Anticipated DC Date: 01-05-2020 Planned Disposition: Home Primary Insurance: [employer] EXCH[employer] Discharge Planning Comments: CM MET WITH PT IN ROOM TO DISCUSS DISCHARGE PLANNING AND NEEDS. PT REPORTS LIVING AT HOME INDEPENDENTLY WITH HER SPOUSE. PT HAS NEBULIZER AND HOME OXYGEN FROM [facility]. PT HAS NO OUTSIDE SERVICES ASSISTING IN THE HOME. CM DISCUSSED AVAILABILITY OF HOME HEALTH, REHAB SERVICES AND MEDICAL EQUIPMENT. PT DENIES DISCHARGE NEEDS, REPORTS HER SPOUSE WILL PICK HER UP FOR DISCHARGE HOME. CM PROVIDED PT A WORK EXCUSE REQUESTED BY PT, COPY TO CHART. HUMID SYSTEM OPERATOR NURSE NOTIFIED. Swimming Coach Or Instructor: Johnathan sTang Appended by Johnathan Tsang on 01/05/2020 17:12 CDT: CM RECEIVED CALL FROM PT STATING HER PHARMACY INFORMED HER THAT PREDAXA IS $500 FOR 30 DAY SUPPLY WITH HER INSURANCE AND THAT SHE CALLED DR. GALLAGHER'S OFFICE AND WAS ADVISED THAT DR. GALLAGHER STATED TO CALL CM. CM LOCATED 30 DAY FREE RX CARD FOR PREDAXA. CM LEFT WITH BEDSIDE NURSE FOR PT TO APPARATUS ENGINEERING TECHNOLOGIST. CM CALLED AND SPOKE TO DR. BILLS WHO APPROVED PLAN. PT REPORTS HAVING FOLLOW UP APPOINTMENT WITH DR. GALLAGHER THIS MONTH. JOHNATHAN JANE, CASE MANAGEMENT DCPIA - Discharge Planning Initial Assessment Updated by [email or web address]: Johnathan Tsang on 01/05/20 4:31 pm * Is the patient Alert and Oriented? Yes * How many steps to enter\exit or inside your home? NONE * PCP DR. SANDERS, APPT 01-12-20 AT 1430 HOURS NEW PATIENT * Pharmacy [facility] [address] * Preadmission Environment Home with Family * ADLs Independent * Equipment Nebulizer Oxygen * Other Equipment HOME OXYGEN ONLY [facility] - MEDICAL EQUIPMENT PROVIDER * List name and contact numbers for known caregivers / representatives who currently or will assist patient after discharge: EVANGELIST LUA, SPOUSE, * Verbal permission to speak to the caregivers and representatives has been obtained from the patient. N/A * Community resources currently utilized None * Please name any agencies selected above. NONE * Additional services required to return to the preadmission environment? No * Can the patient safely return to the preadmission environment? Yes * Has this patient been hospitalized within the prior 30 days at any hospital? No Last DP export: 01/05/20 3:36 p Patient Name: SHY LUA Page [id number] at 1721 All edits/amendments must be made on the electronic document DICTATION DATE: 01/05/201719 APPLICATIONS ANALYST: TERRELL 01/05/201719 RPT#: [id number] DC DATE:01/05/20 STATUS: DIS IN [facility] [address] [place] [address] END OF REPORT
== END 2020-01-05 16:15 | disposition home or self-care (01) | DRG 644 ==
LOC: D.ER 12:45 → D.M2 12:45 → D.ER 15:54 → EDSTATUS 15:54 → D.M2 15:54
PROVIDERS: Emergency Medicine; Legal Medicine; ADMIT Internal Medicine Nephrology; ATTEND Internal Medicine Nephrology
DX: E05.90 Thyrotoxicosis, unspecified without thyrotoxic crisis or storm (principal); Z68.43 Body mass index [BMI] 50.0-59.9, adult; D68.51 Activated protein C resistance; N39.0 Urinary tract infection, site not specified; N17.9 Acute kidney failure, unspecified; E87.1 Hypo-osmolality and hyponatremia; F17.213 Nicotine dependence, cigarettes, with withdrawal; B34.9 Viral infection, unspecified; E11.9 Type 2 diabetes mellitus without complications; I10 Essential (primary) hypertension; I25.10 Atherosclerotic heart disease of native coronary artery without angina pectoris; E66.01 Morbid (severe) obesity due to excess calories; E78.5 Hyperlipidemia, unspecified; D50.9 Iron deficiency anemia, unspecified; J06.9 Acute upper respiratory infection, unspecified; Z79.01 Long term (current) use of anticoagulants; Z86.711 Personal history of pulmonary embolism; Z86.718 Personal history of other venous thrombosis and embolism

== ENCOUNTER 2020-01-07 20:04 | Emergency (ER) | payer BC ==
[~2020-01-07] VITALS: Ht 160 cm; Wt 130.0 kg
[~2020-01-07 20:04] MED LIST changes: +CARDIZEM CD240 MG PO; +CARDIZEM120 MG PO; +LEVOFLOXACIN500 MG PO; +PRADAXA75 MG PO; +PROTONIX40 MG PO
[2020-01-07 20:08] VITALS: Ht 160 cm; Wt 130.0 kg
[2020-01-07 20:37] LABS: BASOPHILS 0.1 % (0-2); EOSINOPHILS 3.8 % (0-7); HEMATOCRIT 36.6 % (36.0-48.0); HEMOGLOBIN 11.2 g/dL (12-16); IMMATURE GRANULOCYTES 0.6 % (0-5); LYMPHOCYTES 20.1 % (15-50); MCH 22.9 pg (26.0-34.0); MCHC 30.6 g/dL (31.0-37.0); MCV 74.7 fL (80.0-100.0); MEAN PLATELET VOLUME 8.8 fL (7.4-10.4); MONOCYTES 5.9 % (2-11); NEUTROPHILS 69.5 % (40-80); PLATELET COUNT 292 10x3/uL (130-400); RDW 19.1 % (11.5-14.5)
[2020-01-07 20:45] LABS: APTT 26.1 SECONDS (22.8-39.4); INR 0.92 (0.85-1.17); PROTIME 12.4 SECONDS (11.6-15.0)
[2020-01-07 20:47] LABS: CALC OSMOLALITY 282 mosm/kg (275-300); CALCIUM 8.6 mg/dL (8.5-10.1); CARBON DIOXIDE 26.2 mmol/L (21.0-32.0); CHLORIDE - SERUM 101 mmol/L (98-107); CREATININE - SERUM 0.9 mg/dL (0.6-1.3); POTASSIUM - SERUM 4.1 mmol/L (3.5-5.1); SODIUM 137 mmol/L (136-145); UREA NITROGEN 12 mg/dL (7-18); eGFR NON AFRICAN AMERICAN 71 mL/min (90-120)
[2020-01-07 20:52] LABS: GLUCOSE 258 mg/dL (74-106)
[2020-01-07 21:04] LABS: ALBUMIN 3.2 g/dL (3.4-5.0); ALKALINE PHOSPHATASE 67 U/L (30-120); ALT (SGPT) 32 U/L (10-68); BILIRUBIN - TOTAL 0.19 mg/dL (0.2-1.3); CREATINE KINASE 39 UL (21-215); MAGNESIUM - SERUM 1.8 mg/dL (1.8-2.4); PROTEIN - SERUM 7.1 g/dL (6.4-8.2); TROPONIN-I < 0.017 ng/mL (0.000-0.060)
[2020-01-07 22:15] VITALS: BP 144/82
== END 2020-01-07 22:15 | disposition home or self-care (01) ==
LOC: D.ER 20:04
PROVIDERS: Family Medicine
DX: R53.81 Other malaise (principal); E11.9 Type 2 diabetes mellitus without complications; Z86.711 Personal history of pulmonary embolism; Z87.440 Personal history of urinary (tract) infections

== ENCOUNTER → 2020-02-02 08:42 | Outpatient (CLI) | payer BC ==
[2020-01-07 20:08] VITALS: BMI 50.7
== END | disposition home or self-care (01) ==
LOC: D.MRI 08:42
PROVIDERS: ATTEND Orthopaedic Surgery
DX: S62.014A Nondisplaced fracture of distal pole of navicular [scaphoid] bone of right wrist, initial encounter for closed fracture (principal)

== ENCOUNTER 2020-05-09 17:19 | Emergency (ER) | payer BC ==
[~2020-05-09] VITALS: Ht 160 cm; Wt 130.5 kg
[2020-05-09 18:05] VITALS: Ht 160 cm; Wt 130.5 kg
[2020-05-09] MEDS ORDERED: TALWIN NX1 TAB PO (20:42)
[2020-05-09] MEDS ORDERED: BACLOFEN20 M1 PO (20:42)
[2020-05-09 21:09] VITALS: BP 142/84
== END 2020-05-09 21:09 | disposition home or self-care (01) ==
LOC: D.ER 17:19
DX: S16.1XXA Strain of muscle, fascia and tendon at neck level, initial encounter (principal); S09.90XA Unspecified injury of head, initial encounter; W19.XXXA Unspecified fall, initial encounter; Y93.9 Activity, unspecified; Y92.9 Unspecified place or not applicable; E11.9 Type 2 diabetes mellitus without complications; J44.9 Chronic obstructive pulmonary disease, unspecified; Z79.84 Long term (current) use of oral hypoglycemic drugs; M54.2 Cervicalgia; R51 Headache; M54.5 Low back pain

== ENCOUNTER 2020-05-31 18:33 | Observation (INO) | payer BC ==
[~2020-05-31] VITALS: Ht 160 cm; Wt 139.1 kg
--- NOTE | ~2020-05-31 | OP ---
PATIENT NAME: SHY LUA MEDICAL RECORD: [id number] :[birth year] LOCATION:D.MS [place] ADMISSION DATE:05/31/20 SURGEON: IBAN SWEENEY MD DATE OF OPERATION: 06/04/2020 PREOPERATIVE DIAGNOSES: 1. Dysfunctional uterine bleeding. 2. Dysmenorrhea. 3. History of CT and stent placement. POSTOPERATIVE DIAGNOSES: 1. Dysfunctional uterine bleeding. 2. Dysmenorrhea. 3. History of CT and stent placement. PROCEDURES: 1. Hysteroscopy. 2. Dilation and curettage. 3. Uterine ablation using NovaSure device. SURGEON: Iban Sweeney MD ANESTHESIOLOGIST: Ger Chávez MD ANESTHETIC: General. FINDINGS: Uterus has a depth of 6 cm. At the time of hysteroscopy, multiple polyps are seen. The patient has unremarkable vaginal vault. Uterus is well supported. SPECIMEN REMOVED: Endometrial curettings. SPECIMEN DISPOSITION: Pathology. FLUIDS: 500 mL. ESTIMATED BLOOD LOSS: Minimal. URINE OUTPUT: Quantity sufficient void prior to this procedure. COMPLICATION: None. DRAIN: None. INDICATION: The patient is a 45-year-old female admitted for heavy vaginal bleeding, dysmenorrhea, and chest pain. The patient has been worked up by cardiology and cleared. The patient does have a cardiac history. The patient is consented for D&C, hysteroscopy with ablation. DESCRIPTION OF PROCEDURE: After informed consent is assured, the patient is taken to the operating room where anesthetic is obtained. The patient is now prepped and draped in usual sterile fashion. A speculum is introduced through the vagina and the cervix grasped with a tenaculum. The cervix is now serially dilated to accommodate 12-degree hysteroscope. This is passed into the uterus under direct visualization with above findings. Multiple polyps have been seen. OPERATIVE REPORT [id number] SHY LUA The cervix is now further dilated to accommodate a #2 curette. This is passed gently to the fundus and curettage now performed. The patient has polyps removed from the uterus. After good cry is obtained throughout, the NovaSure device is now opened. The depth of the uterine cavity is now obtained with the provided sound and this is placed into the NovaSure generator. The array is exposed and found to be intact. It is now retracted, inserted into the uterus, and deployed inside the uterus. The width is now obtained at 3.5 and both values are entered into the generator. After a successful test sequence, therapy is concluded after 1 minute 19 seconds. The single-tooth tenaculum which is used to hold the cervix during this procedure is removed with adequate hemostasis. The patient has tolerated this procedure well. Sponge, lap, and needle count is correct times 2 and the patient went to the recovery area in stable condition. NTS:[id number] Voice Confirmation ID: [id number] DOCUMENT ID: [id number] IBAN SWEENEY MD CC: [id number] DICTATION DATE: 06/07/[address] ROAD SUPERVISOR: 06/07/20 180 DIS IN 06/04/20 [facility] [address] [place] [id number]
[~2020-05-31 18:33] MED LIST changes: +BACLOFEN20 M1 PO; +TALWIN NX1 TAB PO
[2020-05-31 19:26] LABS: BASOPHILS 0.5 % (0-2); EOSINOPHILS 3.5 % (0-7); HEMATOCRIT 40.9 % (36.0-48.0); HEMOGLOBIN 13.5 g/dL (12-16); IMMATURE GRANULOCYTES 0.1 % (0-5); LYMPHOCYTES 26.8 % (15-50); MCH 28.3 pg (26.0-34.0); MCV 85.7 fL (80.0-100.0); MEAN PLATELET VOLUME 9.3 fL (7.4-10.4); MONOCYTES 7.7 % (2-11); NEUTROPHILS 61.4 % (40-80); PLATELET COUNT 278 10x3/uL (130-400); RBC 4.77 10x6/uL (4.00-5.40); RDW 14.9 % (11.5-14.5)
[2020-05-31 19:34] LABS: CALC OSMOLALITY 287 mosm/kg (275-300); CALCIUM 8.5 mg/dL (8.5-10.1); CARBON DIOXIDE 30.6 mmol/L (21.0-32.0); CHLORIDE - SERUM 101 mmol/L (98-107); GLUCOSE 300 mg/dL (74-106); POTASSIUM - SERUM 3.8 mmol/L (3.5-5.1); SODIUM 138 mmol/L (136-145); UREA NITROGEN 16 mg/dL (7-18); eGFR NON AFRICAN AMERICAN 63 mL/min (90-120)
[2020-05-31 19:44] LABS: ALBUMIN 3.4 g/dL (3.4-5.0); ALKALINE PHOSPHATASE 78 U/L (30-120); ALT (SGPT) 79 U/L (10-68); AMYLASE - SERUM 42 U/L (25-115); BILIRUBIN - TOTAL 0.24 mg/dL (0.2-1.3); LIPASE 143 U/L (73-393); PROTEIN - SERUM 7.1 g/dL (6.4-8.2)
[2020-05-31 19:47] LABS: TROPONIN-I < 0.017 ng/mL (0.000-0.060)
[2020-05-31 20:07] LABS: CKMB 0.4 U/L (0.0-3.6); CREATINE KINASE 68 UL (21-215); MAGNESIUM - SERUM 1.7 mg/dL (1.8-2.4)
[2020-05-31 20:10] LABS: APTT 25.4 SECONDS (22.8-39.4); INR 0.88 (0.85-1.17)
[2020-05-31 20:12] LABS: D-DIMER-QUANTITATIVE 0.67 ug/mLFEU (0.20-0.54)
[2020-05-31 20:25] LABS: NITRITE NEGATIVE (NEGATIVE)
[2020-05-31 20:26] LABS: BILIRUBIN NEGATIVE (NEGATIVE); GLUCOSE 1000 mg/dL (NEGATIVE); KETONE NEGATIVE (NEGATIVE); UROBILINOGEN NORMAL (NORMAL)
[2020-05-31 20:29] LABS: EPITHELIAL CELLS 0-5 /hpf (0-5); RED CELLS - URINE >50 /hpf (0-5)
[2020-05-31 20:30] LABS: BACTERIA FEW /hpf (NEGATIVE)
[2020-05-31 21:53] LABS: HCG URINE NEGATIVE (NEGATIVE)
[2020-06-01] VITALS (7 sets, daily range): BP systolic 115–155; BP diastolic 65–96; BMI 54.4
[2020-06-01] MEDS ORDERED: TRAZODONE HCL150 MG PO (02:14)
[2020-06-01 03:04] LABS: BASOPHILS 0.3 % (0-2); EOSINOPHILS 3.8 % (0-7); HEMATOCRIT 38.6 % (36.0-48.0); HEMOGLOBIN 12.2 g/dL (12-16); IMMATURE GRANULOCYTES 0.1 % (0-5); LYMPHOCYTES 31.9 % (15-50); MCH 27.3 pg (26.0-34.0); MCHC 31.6 g/dL (31.0-37.0); MCV 86.4 fL (80.0-100.0); MEAN PLATELET VOLUME 9.3 fL (7.4-10.4); MONOCYTES 8.8 % (2-11); NEUTROPHILS 55.1 % (40-80); PLATELET COUNT 246 10x3/uL (130-400); RBC 4.47 10x6/uL (4.00-5.40); RDW 15.1 % (11.5-14.5); WBC 7.3 10x3/uL (4.8-10.8)
[2020-06-01 03:20] LABS: ALKALINE PHOSPHATASE 67 U/L (30-120); ALT (SGPT) 70 U/L (10-68); BILIRUBIN - TOTAL 0.18 mg/dL (0.2-1.3); CALC OSMOLALITY 286 mosm/kg (275-300); CARBON DIOXIDE 26.6 mmol/L (21.0-32.0); CHLORIDE - SERUM 103 mmol/L (98-107); CKMB 0.6 U/L (0.0-3.6); CREATINE KINASE 65 UL (21-215); CREATININE - SERUM 0.9 mg/dL (0.6-1.3); GLUCOSE 265 mg/dL (74-106); MAGNESIUM - SERUM 1.9 mg/dL (1.8-2.4); POTASSIUM - SERUM 3.8 mmol/L (3.5-5.1); PROTEIN - SERUM 6.4 g/dL (6.4-8.2); SODIUM 139 mmol/L (136-145); TROPONIN-I < 0.017 ng/mL (0.000-0.060); UREA NITROGEN 13 mg/dL (7-18); eGFR NON AFRICAN AMERICAN 71 mL/min (90-120)
[2020-06-01] MEDS ORDERED: EDARBYCLOR 40-1 EACH (06:26)
--- NOTE | 2020-06-01 07:00 | NUR ---
RECEIVED REPORT. ASSUMED CARE OF PATIENT. CALL LIGHT WITHIN REACH. PATIENT RESTING IN BED WITH EYES OPEN. RESP EVEN AND UNLABORED. PATIENT STATES NO CHEST DISCOMFORT SINCE ABOUT 0430 THIS AM. WHITE BOARD UPDATED, BEDSIDE SHIFT REPORT COMPLETE. NO DISTRESS.
--- NOTE | 2020-06-01 07:10 | NUR ---
PADS PROVIDED FOR VAGINAL BLEEDING AT THIS TIME.
--- NOTE | 2020-06-01 08:10 | NUR ---
MEDICATED FOR PAIN AT THIS TIME. NO DISTRESS.
[2020-06-01 09:03] LABS: CKMB 0.6 U/L (0.0-3.6); CREATINE KINASE 62 UL (21-215)
[2020-06-01 09:08] LABS: TROPONIN-I < 0.017 ng/mL (0.000-0.060)
--- NOTE | 2020-06-01 10:29 | NUR ---
CALLED AND SPOKE TO VLADIMIR IN IMAGING, VLADIMIR WILL LET SEVEN KNOW THAT PATIENT IS READY FOR HER ULTRASOUND.
--- NOTE | 2020-06-01 10:40 | NUR ---
PATIENT LEFT UNIT VIA WHEELCHAIR FOR ABD ULTRASOUND. NO DISTRESS UPON LEAVING UNIT.
--- NOTE | 2020-06-01 11:31 | NUR ---
FSBS 152. 4 UNITS HUMULIN ADMINISTERED PER SLIDING SCALE.
--- NOTE | 2020-06-01 15:17 | NUR ---
BILATERAL SCD'S PLACED.
--- NOTE | 2020-06-01 15:37 | NUR ---
MEDICATED FOR PAIN. NO DISTRESS.
--- NOTE | 2020-06-01 16:41 | NUR ---
FSBS 154. 4 UNITS HUMULIN INSULIN ADMINISTERED PER SLIDING SCALE. NO DISTRESS.
--- NOTE | 2020-06-01 20:00 | NUR ---
OFFGOING REPORT AND INITIAL ROUNDS COMPLETED. PT ALERT/ORIENTED AND WATCHING TV.NONLABORED RESPIRATIONS. CPOC.
--- NOTE | 2020-06-02 02:50 | NUR ---
RESTING IN BED WITH NO DISTRESS. CPOC.
[2020-06-02 04:00] VITALS: BP 131/101
--- NOTE | 2020-06-02 04:14 | NUR ---
C/O ABDOMINAL PAIN 10/10 AND NAUSEA. MEDICATED WITH MORPHINE AND ZOFRAN IV. CPOC.
[2020-06-02 05:22] LABS: BASOPHILS 0.2 % (0-2); EOSINOPHILS 3.8 % (0-7); HEMATOCRIT 38.7 % (36.0-48.0); HEMOGLOBIN 12.4 g/dL (12-16); IMMATURE GRANULOCYTES 0.1 % (0-5); LYMPHOCYTES 23.4 % (15-50); MCH 27.7 pg (26.0-34.0); MCV 86.6 fL (80.0-100.0); MEAN PLATELET VOLUME 9.5 fL (7.4-10.4); MONOCYTES 9.2 % (2-11); NEUTROPHILS 63.3 % (40-80); PLATELET COUNT 246 10x3/uL (130-400); RBC 4.47 10x6/uL (4.00-5.40); RDW 14.9 % (11.5-14.5); WBC 8.5 10x3/uL (4.8-10.8)
[2020-06-02 05:33] LABS: ALBUMIN 2.8 g/dL (3.4-5.0); ANION GAP 9.6 mmol/L (8-16); BILIRUBIN - TOTAL 0.34 mg/dL (0.2-1.3); CALCIUM 8.1 mg/dL (8.5-10.1); CARBON DIOXIDE 30.4 mmol/L (21.0-32.0); CREATININE - SERUM 0.9 mg/dL (0.6-1.3); MAGNESIUM - SERUM 1.9 mg/dL (1.8-2.4); PROTEIN - SERUM 6.2 g/dL (6.4-8.2)
--- NOTE | 2020-06-02 07:00 | NUR ---
RECEIVED REPORT. ASSUMED CARE OF PATIENT. PATIENT RESTING IN BED WITH EYES CLOSED, EASILY AROUSED. CALL LIGHT WITHIN REACH. PATIENT DENIES NEEDS AT THIS TIME. BEDSIDE SHIFT REPORT COMPLETE. WHITE BOARD UPDATED. NO DISTRESS.
--- NOTE | 2020-06-02 08:11 | NUR ---
medicated for pain at this time. no distress.
[2020-06-02 10:36] VITALS: BP 125/67
--- NOTE | 2020-06-02 11:10 | NUR ---
FSBS 135. NO INSULIN PER SLIDING SCALE.
--- NOTE | 2020-06-02 12:07 | NUR ---
medicated for pain. no distress.
[2020-06-02 12:23] VITALS: BP 140/100
--- NOTE | 2020-06-02 15:14 | NUR ---
CALLED AND SPOKE TO STANLEY ON L&D. STANLEY WILL HAVE CALL TO PROVIDE GUIDANCE IN CARE OF PATIENT.
--- NOTE | 2020-06-02 15:43 | NUR ---
ARDEN BOWSER FOR MED REVIEW OF HOME MEDS. AWAITING CALL BACK.
[2020-06-02 16:03] VITALS: BP 141/114
--- NOTE | 2020-06-02 16:10 | NUR ---
SPOKE WITH YVES HER, AND SHE WILL RESTART PATIENTS HOME MEDS.
--- NOTE | 2020-06-02 16:17 | NUR ---
fsbs 187. 4 units humulin administered per sliding scale. patient medicated for pain and nausea at this time. no distress.
--- NOTE | 2020-06-02 16:26 | NUR ---
DR. SWEENEY RETURNED CALL AND WILL BE HERE FOR ROUNDS TO SEE PATIENT SOON.
--- NOTE | 2020-06-02 18:28 | NUR ---
consents signed and placed on chart for D&C IN AM. IF OKAY WITH PRIMARY, PATIENT CAN BE MOVED TO WOMEN'S SERVICES.
--- NOTE | 2020-06-02 19:55 | NUR ---
REPORT CALLED TO Regina KEBEDE RN. PT TO MARIANO TO ROOM 2203.
[2020-06-03 05:13] LABS: BASOPHILS 0.3 % (0-2); EOSINOPHILS 4.8 % (0-7); HEMATOCRIT 38.2 % (36.0-48.0); HEMOGLOBIN 11.9 g/dL (12-16); IMMATURE GRANULOCYTES 0.2 % (0-5); LYMPHOCYTES 28.7 % (15-50); MCH 27.4 pg (26.0-34.0); MCHC 31.2 g/dL (31.0-37.0); MCV 87.8 fL (80.0-100.0); MEAN PLATELET VOLUME 9.4 fL (7.4-10.4); MONOCYTES 9.2 % (2-11); NEUTROPHILS 56.8 % (40-80); PLATELET COUNT 252 10x3/uL (130-400); RBC 4.35 10x6/uL (4.00-5.40); RDW 15.2 % (11.5-14.5)
[2020-06-03 05:26] LABS: WBC 6.1 10x3/uL (4.8-10.8)
[2020-06-03 05:36] LABS: ALBUMIN 2.8 g/dL (3.4-5.0); BILIRUBIN - TOTAL 0.19 mg/dL (0.2-1.3); CALCIUM 8.4 mg/dL (8.5-10.1); CARBON DIOXIDE 29.9 mmol/L (21.0-32.0); CREATININE - SERUM 1.1 mg/dL (0.6-1.3); POTASSIUM - SERUM 3.9 mmol/L (3.5-5.1); PROTEIN - SERUM 6.2 g/dL (6.4-8.2)
[2020-06-03 06:01] VITALS: BP 101/65
--- NOTE | 2020-06-03 08:35 | NUR ---
CALLED DR. AMES HAIR BALER, GOT A COSULT FOR [facility]. LEFT A MESSAGE WITH DR. MUÑOZ'S NURSE REGARDING CARDIO CLEARANCE FOR D & C SURGERY.
[2020-06-03 09:10] VITALS: BP 128/74
[2020-06-03 11:54] VITALS: BP 120/66
--- NOTE | 2020-06-03 12:32 | NUR ---
PATIENT TO STRESS TEST PROCEDURE VIA WHEELCHAIR.
[2020-06-03 13:12] VITALS: Ht 160 cm; Wt 139.1 kg
[2020-06-03 16:22] VITALS: BP 152/89
[2020-06-03 20:00] VITALS: BP 160/89
[2020-06-04] VITALS: BP 150/90
--- NOTE | 2020-06-04 03:39 | NUR ---
REC'D AT [facility] OF SHIFT WALKING ROUNDS.IN BED REINFORCED NPO AT MIDNITE. VOICES UNDERSTANDING.WILL CONTINUE TO MONITOR FOR ANY CHGES. IN CURRENT STATUS AND FOLLOW CURRENT PLAN OF CARE.
[2020-06-04 04:00] VITALS: BP 124/68
[2020-06-04 06:22] LABS: BASOPHILS 0.3 % (0-2); EOSINOPHILS 3.7 % (0-7); HEMATOCRIT 39.3 % (36.0-48.0); HEMOGLOBIN 12.5 g/dL (12-16); IMMATURE GRANULOCYTES 0.3 % (0-5); LYMPHOCYTES 42.2 % (15-50); MCHC 31.8 g/dL (31.0-37.0); MCV 88.1 fL (80.0-100.0); MEAN PLATELET VOLUME 9.3 fL (7.4-10.4); MONOCYTES 7.7 % (2-11); NEUTROPHILS 45.8 % (40-80); PLATELET COUNT 269 10x3/uL (130-400); RBC 4.46 10x6/uL (4.00-5.40); RDW 15.3 % (11.5-14.5); WBC 6.2 10x3/uL (4.8-10.8)
[2020-06-04 06:33] LABS: ANION GAP 12.5 mmol/L (8-16); BILIRUBIN - TOTAL 0.23 mg/dL (0.2-1.3); CALCIUM 8.1 mg/dL (8.5-10.1); CARBON DIOXIDE 27.3 mmol/L (21.0-32.0); MAGNESIUM - SERUM 1.8 mg/dL (1.8-2.4); POTASSIUM - SERUM 3.8 mmol/L (3.5-5.1); PROTEIN - SERUM 6.2 g/dL (6.4-8.2)
[2020-06-04 08:49] VITALS: BP 141/91
--- NOTE | 2020-06-04 08:50 | NUR ---
PATIENT BACK FROM PROCEDURE. TO UNIT VIA BED. POST OP VITAL SIGNS PER FLOWSHEET. BED LOW POSITION, CALL LIGHT IN REACH, FAMILY BEDSIDE. WILL CONTINUE TO MONITOR.
--- NOTE | 2020-06-04 09:00 | NUR ---
5607) TO OR VIA BED, IN ATTENDANCE
[2020-06-04] MEDS ORDERED: CIPRO500 MG PO (13:40)
--- NOTE | 2020-06-04 17:46 | NUR ---
DISCHARGE TEACHING COMPLETE. IV REMOVED, CATH TIP INTACT. PATIENT DENIES NEEDS. PATIENT LEFT UNIT VIA WHEELCHAIR TO HOME.
[2020-06-05 15:12] LABS: AEROBE ID Final report (())
== END 2020-06-04 17:47 | disposition home or self-care (01) ==
LOC: D.ER 18:33 → OBSVTIME 21:01 → D.M2 21:01 → D.MS 21:01
PROVIDERS: Emergency Medicine; Family Medicine; ADMIT Family Medicine; ATTEND Family Medicine
DX: I25.110 Atherosclerotic heart disease of native coronary artery with unstable angina pectoris (principal); E11.65 Type 2 diabetes mellitus with hyperglycemia; F17.203 Nicotine dependence unspecified, with withdrawal; N39.0 Urinary tract infection, site not specified; E83.42 Hypomagnesemia; D68.2 Hereditary deficiency of other clotting factors; I10 Essential (primary) hypertension; E78.5 Hyperlipidemia, unspecified; G89.4 Chronic pain syndrome; Z86.711 Personal history of pulmonary embolism; Z86.718 Personal history of other venous thrombosis and embolism; N93.8 Other specified abnormal uterine and vaginal bleeding; D25.9 Leiomyoma of uterus, unspecified

== ENCOUNTER 2020-06-22 19:20 | Observation (INO) | payer BC ==
[~2020-06-22] VITALS: Ht 160 cm; Wt 134.6 kg
--- NOTE | ~2020-06-22 | HEMODYNAMI ---
PATIENT:SHY LUA MEDICAL RECORD: [id number] : 71 LOCATION[id number] ADMISSION DATE: 06/22/20 Generatedon:06/24/202011:27 Patient name: SHY LUA Patient #: [id number] SSN: [id number] : 1975 Date of study: 06/24/2020 Page: Of Hemodynamic Procedure Report Patient Data Patient Demographics Procedure consent was obtained First Name: SHY Gender: Female Last Name: CHANELL : 1975 Middle Initial: R Age: 45 year(s) Patient #: [id number] Race: SSN: [id number] Additional ID: [id number] Contact details Address: [address] [place] [address] circle State: [place] City: [facility] Zip code: [address] Admission Admission Data Admission Date: 06/22/2020 Admission Time: 23:47 Room #: [facility] Height (in.): 62.99 BSA: 2.29 (m2) Height (cm.): 160 BMI: 52.73 (kg/m2) Weight (lbs.): 297.63 Weight (kg.): 135 Procedure Procedure Types Cath Procedure Diagnostic Procedure [facility] w/Coronaries Procedure Description Procedure Date Procedure Date: 06/24/2020 Procedure Start Time: 11:13 Procedure End Time: 11:24 Procedure Staff Name Function Amish Alex MD Performing Physician Latisha Slade RT Monitor Doreen Diaz RT Scrub Bebeto Marks RN Nurse Procedure Data Cath Procedure Fluoroscopy Diagnostic fluoroscopy Total fluoroscopy Time: 1.9 time: 1.9 min min Diagnostic fluoroscopy Total fluoroscopy dose: 603 dose: 603 mGy mGy Contrast Material Contrast Material Type Amount (ml) Isovue 300 54 Entry Location Entry Primary Successful Side Size Upsize Upsize Entry Closure Succes sful Closure Location (Fr) 1 (Fr) 2 (Fr) Remarks Device Remarks Femoral Right 5 Fr Exoseal artery Estimated blood loss: 5 ml Diagnostic catheters Device Type Used For End Catheter Placement MULTIPACK JL 4.0 5Fr Left Coronary catheter Angiography MULTIPACK 3DRC 5Fr Right Coronary catheter Angiography MULTIPACK Pigtail 5 Fr LV Angiography catheter Procedure Complications No complications Procedure Medications Medication Administration Route Dosage Oxygen etCO2 Nasal cannula 2 l/min Heparin Flush Bag added to field 2 bags (1000units/500ml NS) 0.9% NaCl I.V. ml/hr Lidocaine 2% added to field 20 Benadryl I.V. 50 mg Fentanyl I.V. 50 mcg Versed I.V. 1 mg Versed I.V. 1 mg Fentanyl I.V. 50 mcg Hemodynamics Rest BSA: 2.29 (m2) O2 Consumption: Estimated: 228.99 (ml/min) O2 Consumption indexed : Estimated:100 (ml/min/m) Heart Rate: 73 (bpm) Pressure Samples Time Site Value (mmHg) Purpose Heart Use Rate(bpm) 11:18 LV 125/14,16 Snapshot 92 Snapshots Pre Cath Intra NCS Post Cath Vital Signs Time Heart Resp SPO2 etCO2 NIBP (mmHg) Rhythm Pain Sedation Rate (ipm) (%) (mmHg) Status Level (bpm) 10:56:11 73 17 99 37.3 136/69(99) NSR 0 (11) 10(A) , No pain 11:00:17 79 16 100 37.4 129/82(101) NSR 0 (11) 10(A) , No pain 11:04:18 86 17 99 32.9 136/85(113) NSR 0 (11) 10(A) , No pain 11:08:02 88 17 99 2.9 142/81(119) NSR 0 (11) 10(A) , No pain 11:11:47 85 17 98 35.9 147/75(118) NSR 0 (11) 10(A) , No pain 11:15:34 88 17 98 17.9 136/74(112) NSR 0 (11) 10(A) , No pain 11:19:36 90 16 98 34.4 155/95(125) NSR 0 (11) 10(A) , No pain 11:21:16 88 11 98 13.4 157/91(127) NSR 0 (11) 10(A) , No pain Medications Time Medication Route Dose Verified Delivered Reason Notes Effe ctiveness by by 10:55:57 Oxygen etCO2 2 Amish Bebeto Per Nasal l/min [facility] Marks RN physician cannula 10:56:05 Heparin Flush added 2 Amish Bebeto used for Bag to bags [facility] Marks bomb technician (1000units/500ml field PEDERSON NS) 10:56:17 0.9% NaCl I.V. ml/hr Amish Bebeto Per [facility] Marks RN physician 10:56:30 Lidocaine 2% added 20ml Amish Bebeto used for to vial [facility] Marks bomb technician field 10:56:42 Benadryl I.V. 50 mg Amish [address] Per [facility] Marks RN physician 11:12:20 Fentanyl I.V. 50 Amish Bebeto for [facility] Austin Marks RN sedation 11:12:28 Versed I.V. 1 mg Amish Bebeto for [facility] Marks RN sedation 11:19:26 Versed I.V. 1 mg Amish Bebeto for [facility] Marks RN sedation 11:19:31 Fentanyl I.V. 50 Amish Bebeto for [facility] Austin Marks RN sedation Procedure Log Time Note 10:17:23 Diagnostic Cath Status : Urgent 10:31:40 Informed consent obtained and on chart 10:38:13 Bebeto Marks RN sent for patient. Start room use. 10:48:09 Procedure Status Urgent Heart Cath (IP). 10:48:19 Time tracking: Regular hours (M-F 7:00 - 5:00) 10:48:25 Plan of Care:Hemodynamics will remain stable., Cardiac rhythm will remain stable., Comfort level will be maintained., Respiratory function will remain adequate., Patient/ family verbilizes understanding of procedure., Procedure tolerated without complication., Recovers from procedure without complications.. 10:48:41 Patient received from Med II to CCL 2 Alert and oriented. Tansferred to table in Supine position. 10:48:42 Warm blankets applied, and ilana hugger turned on for patient comfort. 10:48:42 Correct patient and procedure confirmed by team. 10:48:43 ECG and BP/O2 sat monitors applied to patient. 10:55:34 Vital chart was started 10:55:57 Oxygen 2 l/min etCO2 Nasal cannula was administered by Bebeto Marks RN; Per physician; Verbal order read back and verified. 10:55:59 Baseline sample Acquired. 10:56:03 Rhythm: sinus rhythm 10:56:04 Full Disclosure recording started 10:56:05 Heparin Flush Bag (1000units/500ml NS) 2 bags added to field was administered by Bebeto Marks RN; used for procedure; Verbal order read back and verified. 10:56:07 H&P Date Dictated: 06/24/2020 New H&P dictated by physician.. 10:56:09 Pre-procedure instructions explained to patient. 10:56:09 Pre-op teaching completed and patient verbalized understanding. 10:56:11 Family in patients room. 10:56:15 Patient NPO since Midnight. 10:56:17 0.9% NaCl ml/hr I.V. was administered by Bebeto Marks RN; Per physician; Verbal order read back and verified. 10:56:18 Is the patient allergic to Iodine/contrast media? No. 10:56:19 Was the patient premedicated? Yes 10:56:22 Is patient on blood thinner?Yes 10:56:26 ACC The patient was administered the following blood thiners within the last 24 hours: ACCPradaxa 10:56:28 Patient diabetic? Yes. 10:56:29 If diabetic: On Metformin? Yes 10:56:30 Lidocaine 2% 20ml vial added to field was administered by Bebeto Marks RN; used for procedure; Verbal order read back and verified. 10:56:34 If on Metformin: Last Dose? 06/22/2020 10:56:38 Previous problem with sedation/anesthesia? No ? 10:56:42 Benadryl 50 mg I.V. was administered by Bebeto Marks RN; Per physician; Verbal order read back and verified. 10:56:44 Snore? Yes 10:56:45 Sleep apnea? No 10:56:46 Deviated septum? No 10:56:47 Opens mouth fully? Yes 10:56:48 Sticks out tongue? Yes 10:56:55 Airway obstruction? Yes copd 10:56:58 Dentures? No ? 10:57:02 Pre procedure: right dorsailis pedis pulse 2+ Normal; easily identifiable; not easily obliterated 10:57:04 Pre procedure: left dorsailis pedis pulse 2+ Normal; easily identifiable; not easily obliterated 10:57:07 Patient pain scale 0/10 ?. 10:57:16 IV patent on arrival in right forearm with 0.9% NaCl at KVO. 10:57:17 Lab results completed and on chart. 10:57:22 Stress Test: no; N/A ? 10:57:27 Right groin area was prepped with chlora-prep and draped in sterile fashion 10:57:28 Alarms reviewed by R. N. 10:57:28 Sharps counted by scrub and verified by R.N. 11:11:59 Physician arrived 11:12:00 --------ALL STOP TIME OUT------ 11:12:01 Final Timeout: patient, procedure, and site verified with staff and physician. All members of the team are in agreement. 11:12:07 Right groin site verified by team. 11:12:13 Fire Safety Assessment: A--An alcohol-based skin anteseptic being used preoperatively., C--Open oxygen or nitrous oxide is being used., D--An ESU, laser, or fiber-optic light is being used. 11:12:18 Physical assessment completed. ASA score P 2 - A patient with mild systemic disease as per Amish Alex MD. 11:12:20 Fentanyl 50 mcg I.V. was administered by Bebeto Marks RN; for sedation; Verbal order read back and verified. 11:12:28 Versed 1 mg I.V. was administered by Bebeto Marks RN; for sedation; Verbal order read back and verified. 11:13:04 2) 60-89 Mildly reduced kidney function, and other findings (as for stage 1) point to kidney disease. 11:13:09 Maximum allowable contrast dose (3.7 X eGFR X 0.75)175 ml. 11:13:15 Sedation plan: IV Moderate Sedation Medication:Versed, Fentanyl 11:13:20 Use device set Femoral Dx 11:13:22 ACIST Syringe (37135) opened to sterile field. 11:13:22 Bag Decanter (2002) opened to sterile field. 11:13:23 Medline Cath Pack ([id number]) opened to sterile field. 11:13:24 ACIST Hand Control (77722) opened to sterile field. 11:13:25 ACIST Manifold (55924) opened to sterile field. 11:13:26 DIAGNOSTIC Multipack 5Fr catheter set (LV0537) opened to sterile field. 11:13:27 Tegaderm 4 x 4 (1626W) opened to sterile field. 11:13:29 SHEATH 5FR [place] (JNE540) opened to sterile field. 11:13:29 EMERALD Guide Wire (664-695) opened to sterile field. 11:13:39 Procedure started. 11:13:45 Local anesthetic to right femoral artery with Lidocaine 2% by Amish Alex MD.INITIAL ACCESS ONLY 11:14:03 A 5 Fr sheath was inserted into the Right Femoral artery 11:14:22 A MULTIPACK JL 4.0 5Fr catheter was advanced over the wire and used for Left Coronary Angiography. 11:14:26 LCA angiography performed. 11:14:34 Injector settings: Ml/sec: 3, Volume: 6, 11:15:07 Catheter removed. 11:15:13 Zero performed for pressure channel P1 11:16:42 A MULTIPACK 3DRC 5Fr catheter was advanced over the wire and used for Right Coronary Angiography. 11:17:25 RCA angiography performed. 11:17:48 Injector settings: Ml/sec: 3, Volume: 6, 11:17:50 Catheter removed. 11:17:58 A MULTIPACK Pigtail 5 Fr catheter was advanced over the wire and used for LV Angiography. 11:18:06 LV gram done using WEBB 11:18:10 Injector settings: Ml/sec: 5, Volume: 15, 11:18:58 LV hemodynamics recorded. 11:19:08 EF : 55 % 11:19:20 EXOSEAL 5Fr (EX500) opened to sterile field. 11:19:25 Catheter removed. 11:19:26 Versed 1 mg I.V. was administered by Bebeto Marks RN; for sedation; Verbal order read back and verified. 11:19:31 Fentanyl 50 mcg I.V. was administered by Bebeto Marks RN; for sedation; Verbal order read back and verified. 11:19:51 Sheath removed intact; hemostasis achieved with Exoseal to the Right Femoral artery. 11:20:17 Procedure ended.(Physican Out) 11:20:48 Contrast amount:Isovue 300 54ml. 11:20:56 Fluoroscopy time 01.90 minutes. 11:21:01 Flurop Dose total: 603 11:21:01 Fluoroscopy dose: 603 mGy 11:21:10 Dose Area Product 95783 mGy/cm. 11:21:13 Maximum allowable dose exceeded? No. 11:21:15 Sharps counted by scrub and verified by R.N. 11:21:21 Post-op/insertion site Right Femoral artery dressed using a 4 x 4 and Tegaderm. 11:21:26 Post-procedure physical assessment completed. ASA score P 2 - A patient with mild systemic disease as per Amish Alex MD. 11:22:34 Post procedure rhythm: unchanged. 11:22:37 Estimated blood loss: 5 ml 11:22:39 Post procedure instruction explained to patient.Patient verbalizes understanding. 11:22:40 Patient needs reinforcement of post procedure teaching. 11:23:19 Procedure and supply charges have been captured, reviewed, submitted and are correct. 11:23:55 Procedure Complication : No complications 11:23:58 Vital chart was stopped 11:24:02 [facility] Findings: mild to moderate CAD (<70%) 11:24:06 See physician's report for complete and final results. 11:24:12 Report given to [facility] II. 11:24:17 Patient transfered to Med II with Bed. 11:24:20 Procedure ended. 11:24:20 Full Disclosure recording stopped 11:25:21 Patient Height : 62.99 inches 11:25:26 Patient Weight : 297.63 lbs 11:25:33 End room use (Document Last) Device Usage Item Name Manufacture Quantity Catalog Hospital Part Current Minimal L ot# / Number Charge Number Stock Stock Serial# Code ACIST Acist 1 65594 795115 857673 292305 20 Syringe Medical (79783) Systems Inc Bag Microtek 1 254013 13277 150081 5 Decanter Medical Inc. () Medline Medline 1 [id number] 033653 38052 769991 5 Cath Pack ([id number]) ACIST Hand Acist 1 78432 268953 370942 487540 5 Control Medical (90801) Systems Inc ACIST Acist 1 83018 767860 765497 030724 5 Manifold Medical (46057) Systems Inc DIAGNOSTIC Cardinal 1 [id number] 845795 84533 284760 30 Multipack Health 5Fr catheter set (EA3314) Tegaderm 4 3M 1 1626W 663859 651123 008635 5 x 4 (1626W) SHEATH 5FR Terumo 1 LMN859 400883 601488 216465 5 [place] (LUB629) EMERALD Cardinal 1 517-723 547724 702837 648548 5 Guide Wire Health (853-129) MULTIPACK Cardinal 1 276044 5 JL 4.0 5Fr Health catheter MULTIPACK Cardinal 1 849542 5 3DRC 5Fr Health catheter MULTIPACK Cardinal 1 199446 5 Pigtail 5 Health Fr catheter EXOSEAL 5Fr Cardinal 1 EX500 834148 749984 290075 10 (EX500) Health Signature Audit [place] Stage Time Signature Unsigned Intra-Procedure 06/24/2020 Latisha 11:25:56 AM Yany RT(R) (CV) Intra-Procedure 06/24/2020 Bebeto Marks 11:27:02 AM RN Intra-Procedure 06/24/2020 Amish Aviles 11:27:41 AM Austin PEDERSON Signatures Performing Physician : Signature : Amish Alex MD Date : Time : Monitor : Latisha Signature : Yany RT Date : Time : Nurse : Bebeto Marks RN Signature : Date : Time : [facility] [address] [place] [address]
[~2020-06-22 19:20] MED LIST changes: +CIPRO500 MG PO; +EDARBYCLOR 40-1 EACH PO; +TRAZODONE HCL150 MG PO
[2020-06-22] MEDS ORDERED: PERCOCET 7.5/321 TAB PO (19:34)
[2020-06-22 20:12] LABS: BASOPHILS 0.2 % (0-2); EOSINOPHILS 3.1 % (0-7); HEMATOCRIT 40.8 % (36.0-48.0); HEMOGLOBIN 13.3 g/dL (12-16); IMMATURE GRANULOCYTES 0.2 % (0-5); LYMPHOCYTES 23.8 % (15-50); MCH 27.7 pg (26.0-34.0); MCHC 32.6 g/dL (31.0-37.0); MEAN PLATELET VOLUME 9.2 fL (7.4-10.4); MONOCYTES 7.1 % (2-11); NEUTROPHILS 65.6 % (40-80); PLATELET COUNT 258 10x3/uL (130-400); RDW 14.6 % (11.5-14.5); WBC 9.1 10x3/uL (4.8-10.8)
[2020-06-22 20:44] LABS: ALBUMIN 3.1 g/dL (3.4-5.0); ALKALINE PHOSPHATASE 80 U/L (30-120); ALT (SGPT) 52 U/L (10-68); BILIRUBIN - TOTAL 0.31 mg/dL (0.2-1.3); CALCIUM 8.6 mg/dL (8.5-10.1); CARBON DIOXIDE 26.9 mmol/L (21.0-32.0); CKMB 0.1 U/L (0.0-3.6); CREATINE KINASE 50 UL (21-215); PROTEIN - SERUM 6.8 g/dL (6.4-8.2); UREA NITROGEN 13 mg/dL (7-18); eGFR NON AFRICAN AMERICAN 63 mL/min (90-120)
[2020-06-22 20:53] LABS: CHLORIDE - SERUM 101 mmol/L (98-107); POTASSIUM - SERUM 3.9 mmol/L (3.5-5.1); SODIUM 134 mmol/L (136-145)
[2020-06-22 20:54] LABS: CALC OSMOLALITY 278 mosm/kg (275-300); GLUCOSE 298 mg/dL (74-106); TROPONIN-I < 0.017 ng/mL (0.000-0.060)
[2020-06-22 20:55] LABS: HCG SERUM NEGATIVE (NEGATIVE)
[2020-06-22 22:35] VITALS: BP 140/99
[2020-06-22 23:36] VITALS: BP 148/96
[2020-06-23 04:16] VITALS: BP 131/66
--- NOTE | 2020-06-23 07:00 | NUR ---
PT REPORT FROM KERRY AN
[2020-06-23 08:00] VITALS: BP 110/79
[2020-06-23 08:46] LABS: BASOPHILS 0.2 % (0-2); EOSINOPHILS 8.4 % (0-7); HEMOGLOBIN 13.5 g/dL (12-16); IMMATURE GRANULOCYTES 1.9 % (0-5); LYMPHOCYTES 6.8 % (15-50); MCH 27.4 pg (26.0-34.0); MCHC 32.1 g/dL (31.0-37.0); MCV 85.2 fL (80.0-100.0); MEAN PLATELET VOLUME 9.2 fL (7.4-10.4); MONOCYTES 0.9 % (2-11); NEUTROPHILS 81.8 % (40-80); PLATELET COUNT 249 10x3/uL (130-400); RBC 4.93 10x6/uL (4.00-5.40); RDW 14.6 % (11.5-14.5)
[2020-06-23 08:47] LABS: WBC 12.9 10x3/uL (4.8-10.8)
--- NOTE | 2020-06-23 09:09 | NUR ---
DR BYNUM CALLED AND NOTIFIED OF CONSULT
[2020-06-23 09:11] LABS: CALC OSMOLALITY 281 mosm/kg (275-300); CALCIUM 8.9 mg/dL (8.5-10.1); CHLORIDE - SERUM 101 mmol/L (98-107); CREATININE - SERUM 1.2 mg/dL (0.6-1.3); GLUCOSE 356 mg/dL (74-106); POTASSIUM - SERUM 4.7 mmol/L (3.5-5.1); SODIUM 133 mmol/L (136-145); TROPONIN-I < 0.017 ng/mL (0.000-0.060); UREA NITROGEN 18 mg/dL (7-18); eGFR NON AFRICAN AMERICAN 51 mL/min (90-120)
[2020-06-23 11:46] VITALS: BP 131/93
--- NOTE | 2020-06-23 12:55 | NUR ---
RECEIVED PT TO ROOM 2114 VIA STRETCHER, PT WAS ABLE TO AMBULATE FROM STRETCHER TO BED. PT A/O X4. RESP EVEN AND NONLABORED ON 3L NC. SCDS PLACED ON PT BILAT. WILL ASSESS PT AND START PLAN OF CARE.
[2020-06-23 13:22] VITALS: BP 144/84; Ht 160 cm; Wt 134.6 kg
--- NOTE | 2020-06-23 13:44 | NUR ---
4MG OF MORPHINE GIVEN FOR PAIN LEVEL OF 7/10, ALSO GAVE ZOFRAN FOR NAUSEA. PT DENIES ANY OTHER NEEDS AT THIS TIME. CALL LIGHT IN REACH, NAD NOTED, WILL CONTINUE PLAN OF CARE.
[2020-06-23 16:00] VITALS: BP 159/84
[2020-06-23 20:00] VITALS: BP 141/88
[2020-06-24] VITALS: BP 130/81
[2020-06-24 04:00] VITALS: BP 117/70
[2020-06-24 06:36] LABS: CALCIUM 8.3 mg/dL (8.5-10.1); PHOSPHOROUS 4.1 mg/dL (2.5-4.9)
[2020-06-24 07:53] LABS: BASOPHILS 0.2 % (0-2); EOSINOPHILS 0.6 % (0-7); HEMATOCRIT 38.9 % (36.0-48.0); HEMOGLOBIN 12.3 g/dL (12-16); IMMATURE GRANULOCYTES 0.2 % (0-5); LYMPHOCYTES 21.8 % (15-50); MCH 27.3 pg (26.0-34.0); MCHC 31.6 g/dL (31.0-37.0); MCV 86.4 fL (80.0-100.0); MEAN PLATELET VOLUME 9.6 fL (7.4-10.4); MONOCYTES 6.6 % (2-11); NEUTROPHILS 70.6 % (40-80); PLATELET COUNT 255 10x3/uL (130-400); RDW 14.9 % (11.5-14.5); WBC 12.3 10x3/uL (4.8-10.8)
[2020-06-24 08:35] VITALS: BP 111/68
[2020-06-24 08:59] LABS: CHOL - HDL RATIO 4.9 ratio (2.3-4.1); LDL-HDL RATIO 3.3 ratio (1.5-3.5)
--- NOTE | 2020-06-24 10:11 | NUR ---
PRE-OP MEDS GIVEN AT THIS TIME. LT AC IV INFILTRATED. REMOVED IV WITH CATHETER TIP INTACT, TRIED STARTED NEW IV, STUCK PT X2 STICKS AND WAS UNSUCCESSFUL. UNABLE TO GIVE BENADRYL, NOTIFIED [facility].
--- NOTE | 2020-06-24 11:46 | NUR ---
RECEIVED PT BACK TO ROOM 2114. PT DROWSY BUT EASILY AROUSES TO VOICE. VITAL SIGNS STABLE. RT GROIN DRESSSING CDI, NO S/S OF HEMATOMA OR BLEEDING NOTED. PLACED PT ON FREQUENT VITAL SIGNS. PT DENIES ANY OTHER NEEDS AT THIS TIME. CALL LIGHT IN REACH, NAD NOTED, WILL CONTINUE TO MONITOR.
[2020-06-24 13:23] VITALS: BP 145/63
--- NOTE | 2020-06-24 14:00 | NUR ---
NO CHANGES TO RT GROIN FROM PREVIOUS ASSESSMENT.
--- NOTE | 2020-06-24 16:14 | NUR ---
PROVIDED VERBAL AND WRITTEN DISCHARGE TEACHING TO PT WHO VERBALIZED UNDERSTANDING REGARDING TEACHING. D/C LT FA IV WITH CATHETER TIP INTACT. HEART MONITOR REMOVED AND TAKEN TO RELOCATION COUNSELOR. PT WILL NOTIFY NURSE WHEN READY FOR WHEELCHAIR.
--- NOTE | 2020-06-24 17:23 | NUR ---
PT LEFT UNIT VIA WHEELCHAIR, WITH ALL BELONGINGS, NAD NOTED.
--- NOTE | 2020-06-26 07:58 | OP ---
PATIENT NAME: SHY LUA MEDICAL RECORD: [id number] :71 LOCATION:D.M2 D.2115 ADMISSION DATE:06/22/20 SURGEON: DOMENIC BYNUM MD DATE OF OPERATION: 06/24/2020 PROCEDURE: Left heart catheterization, selective coronary angiography, right femoral artery approach. CATHETERS: A 5-Venezuelan sheath, 5/4 left and right Willi, 5/4 pig. The procedure was well tolerated. The patient returned to the aleman, sheath was removed. ExoSeal device placed. FINDINGS: Left ventriculography in a 30-degree WEBB view: Normal wall motion and systolic function. CORONARY ANATOMY: LEFT MAIN: Left main is free of disease. LAD: Area of previous stenting is widely patent. No progression of yuhaaviatam disease. CIRCUMFLEX: Again, widely patent stent, no evidence of progression of yuhaaviatam disease. No evidence of restenosis. RIGHT CORONARY ARTERY: Widely patent stent. No progression of yuhaaviatam disease. TRANSINT:[id number] Voice Confirmation ID: [id number] DOCUMENT ID: [id number] DOMENIC BYNUM MD at 0758 CC: [id number] DICTATION DATE: 06/24/20 1125 CRUST SORTER: 06/24/20 2323 DIS IN 06/24/20 [address] [place] [address]
--- NOTE | 2020-06-26 07:58 | CN ---
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 She is being intermittently having chest pain off and on since her most recent surgery with minimal exertion, progressing to rest symptomatology on night of admission. We are asked to see her concerning her cardiovascular status. PAST MEDICAL HISTORY: Otherwise includes; 1. History of hypertension. 2. Hyperlipidemia. 3. Coronary artery disease as described above. 4. V Leiden factor. 5. Diabetes mellitus. ALLERGIES: INCLUDE CONTRAST, PENICILLIN, AND TRAMADOL. SOCIAL HISTORY: Switched to E cig about a year ago. Nondrinker. No set exercise program. REVIEW OF SYSTEMS: The patient reports easy bruising but reports no swollen glands. The patient reports no fever, no night sweats, no significant weight gain, no significant weight loss. No significant exercise tolerance. The patient reports no dry eyes, no irritation, no vision change. Patient reports no difficulty hearing and no ear pain. Patient reports no frequent nose bleeds or nose and sinus problems. Patient reports on arm pain on exertion. No shortness of breath while lying down. No history of heart murmur. Patient reports no cough, no wheezing or coughing up blood. Patient reports no abdominal pain, no vomiting. Normal appetite. No diarrhea and not vomiting blood. No nausea and no constipation. Patient reports no incontinence. No difficulty urinating. No hematuria. No increased frequency. Patient reports no muscle aches. No weakness, no arthralgias, no back pain. No swelling of the extremities. Patient reports no abnormal mole, no jaundice, no rashes. Reports no loss of consciousness. No weakness and no numbness. No seizures, dizziness, or headaches. The patient reports no depression, no sleep disturbance, feeling safe in a relationship and no alcohol abuse. Patient reports on fatigue. Reports no runny nose or sinus pressure. No itching, no hives, and no frequent sneezing. MEDICATIONS: Include Flexeril 10 mg p.o. t.i.d., albuterol updraft q.i.d., Pradaxa 75 b.i.d., atorvastatin 20 every day, Ranexa 500 every day, isosorbide 30 every day, diltiazem 240 every day, edarbyclor 40 every day, Neurontin 300 mg every day, aspirin 81 every day, Percocet 7.5 q.6 p.r.n., metformin 1 gram b.i.d. PHYSICAL EXAMINATION: GENERAL: Pleasant, in no acute distress, appears stated age. VITAL SIGNS: Blood pressure 111/68, pulse 78 and regular. CONSULT REPORT [id number] SHY LUA: Normocephalic, atraumatic. NECK: No JVD or bruit. HEART: Regular. A II/ systolic ejection murmur. LUNGS: Good air excursion. ABDOMEN: Soft, nontender. EXTREMITIES: Pulses 2+. No edema. IMPRESSION: Acute coronary syndrome, rapidly progressing at this point in time. PLAN: For angiography, intervention based on above. TRANSINT:[id number] Voice Confirmation ID: [id number] DOCUMENT ID: [id number] DOMENIC BYNUM MD at 0758 CC: [id number] DICTATION DATE: 06/24/20 0952 CAKE FROSTER: 06/24/20 1157 DIS IN 06/24/20 [address] [place] [address]
== END 2020-06-24 17:24 | disposition home or self-care (01) ==
LOC: D.ER 19:20 → D.M2 23:47 → D.EDHOLD 23:47 → OBSVTIME 23:48 → D.M2 06-23 11:51
PROVIDERS: Family Medicine; Internal Medicine Interventional Cardiology; ADMIT Family Medicine; ATTEND Family Medicine
DX: R07.9 Chest pain, unspecified (principal); I25.10 Atherosclerotic heart disease of native coronary artery without angina pectoris; R79.89 Other specified abnormal findings of blood chemistry; E11.9 Type 2 diabetes mellitus without complications; J44.9 Chronic obstructive pulmonary disease, unspecified; Z72.0 Tobacco use; Z79.84 Long term (current) use of oral hypoglycemic drugs; C55 Malignant neoplasm of uterus, part unspecified; E78.5 Hyperlipidemia, unspecified; I10 Essential (primary) hypertension

== ENCOUNTER 2020-07-31 21:34 | Emergency (ER) | payer BC ==
[~2020-07-31] VITALS: Ht 160 cm; Wt 135.5 kg
[~2020-07-31 21:34] MED LIST changes: +PERCOCET 7.5/321 TAB PO
[2020-07-31 21:50] VITALS: Ht 160 cm; Wt 135.5 kg
[2020-07-31 22:43] LABS: BASOPHILS 0.3 % (0-2); EOSINOPHILS 3.3 % (0-7); HEMATOCRIT 45.2 % (36.0-48.0); HEMOGLOBIN 14.7 g/dL (12-16); IMMATURE GRANULOCYTES 0.3 % (0-5); LYMPHOCYTES 27.2 % (15-50); MCH 27.6 pg (26.0-34.0); MCHC 32.5 g/dL (31.0-37.0); MCV 84.8 fL (80.0-100.0); MEAN PLATELET VOLUME 10.3 fL (7.4-10.4); MONOCYTES 9.4 % (2-11); NEUTROPHILS 59.5 % (40-80); PLATELET COUNT 209 10x3/uL (130-400); RBC 5.33 10x6/uL (4.00-5.40); RDW 14.1 % (11.5-14.5); WBC 6.1 10x3/uL (4.8-10.8)
[2020-07-31 22:48] LABS: CALC OSMOLALITY 277 mosm/kg (275-300); CALCIUM 9.2 mg/dL (8.5-10.1); CARBON DIOXIDE 29.7 mmol/L (21.0-32.0); CHLORIDE - SERUM 97 mmol/L (98-107); POTASSIUM - SERUM 3.9 mmol/L (3.5-5.1); SODIUM 133 mmol/L (136-145); UREA NITROGEN 10 mg/dL (7-18); eGFR NON AFRICAN AMERICAN 63 mL/min (90-120)
[2020-07-31 22:49] LABS: GLUCOSE 340 mg/dL (74-106)
[2020-07-31 23:01] LABS: ALBUMIN 3.4 g/dL (3.4-5.0); ALKALINE PHOSPHATASE 89 U/L (30-120); ALT (SGPT) 88 U/L (10-68); BILIRUBIN - TOTAL 0.25 mg/dL (0.2-1.3); CKMB 0.3 U/L (0.0-3.6); CREATINE KINASE 46 UL (21-215); MAGNESIUM - SERUM 1.8 mg/dL (1.8-2.4); PROTEIN - SERUM 7.4 g/dL (6.4-8.2); TROPONIN-I < 0.017 ng/mL (0.000-0.060)
[2020-07-31 23:17] LABS: INR 0.87 (0.85-1.17); PROTIME 11.8 SECONDS (11.6-15.0)
[2020-08-01] MEDS ORDERED: PHENERGAN25 M1 PO (00:46)
[2020-08-01 01:29] VITALS: BP 144/104
== END 2020-08-01 01:29 | disposition home or self-care (01) ==
LOC: D.ER 21:34
PROVIDERS: Family Medicine
DX: R07.89 Other chest pain (principal); R10.9 Unspecified abdominal pain; R11.0 Nausea; E11.65 Type 2 diabetes mellitus with hyperglycemia; J44.9 Chronic obstructive pulmonary disease, unspecified; Z72.0 Tobacco use; Z79.84 Long term (current) use of oral hypoglycemic drugs; R53.1 Weakness; R42 Dizziness and giddiness

== ENCOUNTER 2021-01-01 21:12 | Inpatient (IN) | payer MEDICAID ==
[~2021-01-01] VITALS: Ht 160 cm; Wt 131.5 kg
[~2021-01-01 21:12] MED LIST changes: +PHENERGAN25 M1 PO
[2021-01-01 22:00] VITALS: BP 168/100
[2021-01-01 22:15] LABS: BASOPHILS 0.1 % (0-2); EOSINOPHILS 8.7 % (0-7); HEMATOCRIT 43.9 % (36.0-48.0); HEMOGLOBIN 14.9 g/dL (12-16); IMMATURE GRANULOCYTES 0.3 % (0-5); LYMPHOCYTE ABS# 1.84 10x3/uL (1.18-3.74); LYMPHOCYTES 25.1 % (15-50); MCH 28.9 pg (26.0-34.0); MCHC 33.9 g/dL (31.0-37.0); MCV 85.2 fL (80.0-100.0); MEAN PLATELET VOLUME 9.5 fL (7.4-10.4); MONOCYTES 7.9 % (2-11); NEUTROPHIL ABS# 4.23 10x3/uL (1.56-6.13); NEUTROPHILS 57.9 % (40-80); PLATELET COUNT 194 10x3/uL (130-400); RBC 5.15 10x6/uL (4.00-5.40); WBC 7.3 10x3/uL (4.8-10.8)
[2021-01-01 22:26] LABS: APTT 25.3 SECONDS (22.8-39.4); INR 1.03 (0.85-1.17); PROTIME 12.5 SECONDS (11.6-15.0)
[2021-01-01 22:38] LABS: ALBUMIN 3.1 g/dL (3.4-5.0); ALKALINE PHOSPHATASE 76 U/L (30-120); ALT (SGPT) 67 U/L (10-68); CALCIUM 9.4 mg/dL (8.5-10.1); CARBON DIOXIDE 29.5 mmol/L (21.0-32.0); CHLORIDE - SERUM 96 mmol/L (98-107); CREATINE KINASE 45 UL (21-215); CREATININE - SERUM 1.1 mg/dL (0.6-1.3); POTASSIUM - SERUM 4.3 mmol/L (3.5-5.1); PRO BNP 109 pg/mL (0-125); PROTEIN - SERUM 7.1 g/dL (6.4-8.2); SODIUM 131 mmol/L (136-145); TROPONIN-I < 0.017 ng/mL (0.000-0.060); UREA NITROGEN 11 mg/dL (7-18); eGFR NON AFRICAN AMERICAN 56 mL/min (90-120)
[2021-01-01 22:44] LABS: CALC OSMOLALITY 284 mosm/kg (275-300); GLUCOSE 516 mg/dL (74-106)
[2021-01-01 23:00] VITALS: BP 150/97
--- NOTE | 2021-01-01 23:19 | NUR ---
AMBULATED TO RESTROOM WITH STEADY GAIT.
[2021-01-02] VITALS (9 sets, daily range): BP systolic 111–170; BP diastolic 20–105; Ht 160 cm; Wt 131.5 kg
[2021-01-02 00:39] LABS: BILIRUBIN NEGATIVE (NEGATIVE); KETONE NEGATIVE (NEGATIVE); NITRITE NEGATIVE (NEGATIVE); UROBILINOGEN NORMAL mg/dL (< 2)
--- NOTE | 2021-01-02 05:18 | NUR ---
Patient came from ED complained of pain, pain was managed with the prescribed pain medication, she is currently resting in bed.
[2021-01-02 06:57] LABS: BASOPHILS 0.3 % (0-2); EOSINOPHILS 9.4 % (0-7); HEMATOCRIT 41.4 % (36.0-48.0); IMMATURE GRANULOCYTES 0.3 % (0-5); LYMPHOCYTE ABS# 2.29 10x3/uL (1.18-3.74); MCH 28.7 pg (26.0-34.0); MCHC 33.8 g/dL (31.0-37.0); MEAN PLATELET VOLUME 9.4 fL (7.4-10.4); MONOCYTES 5.9 % (2-11); NEUTROPHIL ABS# 3.54 10x3/uL (1.56-6.13); NEUTROPHILS 51.1 % (40-80); PLATELET COUNT 191 10x3/uL (130-400); RBC 4.87 10x6/uL (4.00-5.40); RDW 14.6 % (11.5-14.5); WBC 6.9 10x3/uL (4.8-10.8)
[2021-01-02 07:10] LABS: APTT 25.5 SECONDS (22.8-39.4); INR 1.06 (0.85-1.17); PROTIME 12.8 SECONDS (11.6-15.0)
[2021-01-02 07:11] LABS: D-DIMER-QUANTITATIVE 0.31 ug/mLFEU (0.20-0.54)
[2021-01-02 07:28] LABS: ALBUMIN 2.8 g/dL (3.4-5.0); ALKALINE PHOSPHATASE 61 U/L (30-120); ALT (SGPT) 58 U/L (10-68); BILIRUBIN - TOTAL 0.27 mg/dL (0.2-1.3); CALCIUM 8.2 mg/dL (8.5-10.1); CARBON DIOXIDE 26.4 mmol/L (21.0-32.0); CHLORIDE - SERUM 102 mmol/L (98-107); MAGNESIUM - SERUM 1.7 mg/dL (1.8-2.4); POTASSIUM - SERUM 3.9 mmol/L (3.5-5.1); PROTEIN - SERUM 5.8 g/dL (6.4-8.2); SODIUM 135 mmol/L (136-145); TROPONIN-I < 0.017 ng/mL (0.000-0.060); UREA NITROGEN 11 mg/dL (7-18); eGFR NON AFRICAN AMERICAN 81 mL/min (90-120)
[2021-01-02 07:29] LABS: CALC OSMOLALITY 277 mosm/kg (275-300); CREATININE - SERUM 0.8 mg/dL (0.6-1.3); GLUCOSE 263 mg/dL (74-106)
[2021-01-02 13:59] LABS: UDS - AMPHET NEGATIVE QUAL (NEGATIVE); UDS - BARB NEGATIVE QUAL (NEGATIVE); UDS - BENZO NEGATIVE QUAL (NEGATIVE); UDS - COCAINE NEGATIVE QUAL (NEGATIVE); UDS - OPIATE POSITIVE QUAL (NEGATIVE); UDS - PCP NEGATIVE QUAL (NEGATIVE); UDS - THC NEGATIVE QUAL (NEGATIVE)
[2021-01-03 04:00] VITALS: BP 152/68
[2021-01-03 07:50] LABS: BASOPHILS 0.1 % (0-2); EOSINOPHILS 0.7 % (0-7); HEMATOCRIT 44.4 % (36.0-48.0); HEMOGLOBIN 15.4 g/dL (12-16); IMMATURE GRANULOCYTES 0.2 % (0-5); LYMPHOCYTE ABS# 0.94 10x3/uL (1.18-3.74); LYMPHOCYTES 10.4 % (15-50); MCH 29.3 pg (26.0-34.0); MCHC 34.7 g/dL (31.0-37.0); MCV 84.6 fL (80.0-100.0); MEAN PLATELET VOLUME 9.3 fL (7.4-10.4); MONOCYTES 1.4 % (2-11); NEUTROPHILS 87.2 % (40-80); PLATELET COUNT 199 10x3/uL (130-400); RBC 5.25 10x6/uL (4.00-5.40); RDW 14.3 % (11.5-14.5)
[2021-01-03 07:51] LABS: WBC 9.1 10x3/uL (4.8-10.8)
[2021-01-03 08:14] LABS: ALBUMIN 3.2 g/dL (3.4-5.0); ALKALINE PHOSPHATASE 67 U/L (30-120); BILIRUBIN - TOTAL 0.55 mg/dL (0.2-1.3); CALCIUM 9.5 mg/dL (8.5-10.1); CARBON DIOXIDE 25.8 mmol/L (21.0-32.0); CHLORIDE - SERUM 96 mmol/L (98-107); CREATININE - SERUM 0.8 mg/dL (0.6-1.3); MAGNESIUM - SERUM 1.7 mg/dL (1.8-2.4); SODIUM 130 mmol/L (136-145); UREA NITROGEN 11 mg/dL (7-18); eGFR NON AFRICAN AMERICAN 81 mL/min (90-120)
[2021-01-03 08:16] LABS: ALT (SGPT) 85 U/L (10-68); CALC OSMOLALITY 273 mosm/kg (275-300); GLUCOSE 352 mg/dL (74-106); POTASSIUM - SERUM 5.1 mmol/L (3.5-5.1); PROTEIN - SERUM 7.4 g/dL (6.4-8.2)
[2021-01-03 09:23] VITALS: BP 129/76
--- NOTE | 2021-01-03 10:04 | NUR ---
PATIENT STATED HAVING A HARD TIME SWALLOWING. NOTIFIED SHANNA. NEW ORDERS RECIEVED AND CARRIED OUT.
[2021-01-03 12:34] VITALS: BP 148/88
--- NOTE | 2021-01-03 15:11 | NUR ---
PATIENT RECIEVED MEDS CRUSHED IN APPLESAUCE AT THIS TIME. SWALLOWED WITH NO PROBLEMS. IV INTACT. CALL LIGHT WITHIN REACH. FAMILY AT BEDSIDE.
[2021-01-03 17:46] VITALS: BP 136/74
--- NOTE | 2021-01-03 18:45 | NUR ---
PATIENT IN BED WITH IV INTACT. NO COMPLAINTS OR SIGNS OF DISTRESS. IV INTACT. CALL LIGHT WITHIN REACH.
[2021-01-04 01:56] VITALS: BP 125/67
[2021-01-04 05:08] LABS: BASOPHILS 0.2 % (0-2); EOSINOPHILS 0.6 % (0-7); HEMOGLOBIN 14.3 g/dL (12-16); IMMATURE GRANULOCYTES 0.2 % (0-5); LYMPHOCYTE ABS# 2.36 10x3/uL (1.18-3.74); LYMPHOCYTES 18.2 % (15-50); MCH 29.1 pg (26.0-34.0); MCV 85.4 fL (80.0-100.0); MEAN PLATELET VOLUME 9.4 fL (7.4-10.4); MONOCYTES 7.4 % (2-11); NEUTROPHIL ABS# 9.55 10x3/uL (1.56-6.13); NEUTROPHILS 73.4 % (40-80); PLATELET COUNT 196 10x3/uL (130-400); RBC 4.92 10x6/uL (4.00-5.40); RDW 14.8 % (11.5-14.5)
[2021-01-04 05:38] LABS: ANION GAP 15.3 mmol/L (8-16); BILIRUBIN - TOTAL 0.24 mg/dL (0.2-1.3); CALCIUM 8.8 mg/dL (8.5-10.1); CARBON DIOXIDE 23.1 mmol/L (21.0-32.0); CREATININE - SERUM 1.2 mg/dL (0.6-1.3); POTASSIUM - SERUM 4.4 mmol/L (3.5-5.1); PROTEIN - SERUM 6.3 g/dL (6.4-8.2)
--- NOTE | 2021-01-04 07:59 | NUR ---
AWAKE AND ALERT. ORIENTED X3. NO C/O AT THIS TIME. LUNGS ARE DIMINISHED THROUGHOUT WITH EXPIRATORY WHEEZES NOTED BILATERALLY, REPORTED USED IS INSTRUCTED. SL TO LEFT FOREARM IS PATENT WITHOUT REDNESS. DENIES NEEDS.
--- NOTE | 2021-01-04 09:00 | NUR ---
ATE ALMOST ALL OF BREAKFAST WITHOUT DIFFICULTY. TOOK AM MEDS ONE AT A TIME OK. DENIES NEEDS.
[2021-01-04 09:07] VITALS: BP 158/100
[2021-01-04 11:53] VITALS: BP 111/68
--- NOTE | 2021-01-04 12:00 | NUR ---
FSBS 417. GIVEN 28 UNITS INSULIN SUBQ PER SS. LUNCH SERVED IN ROOM.
[2021-01-04] MEDS ORDERED: IPRAT-ALBUT 0.5-3 ML UPD (14:39)
--- NOTE | 2021-01-04 14:58 | NUR ---
REQUESTED AND GIVEN 0.5 MG DILAUDID SLOW IVP FOR C/O NECK ARM PAIN LEVEL 8. WILL MONITOR.
[2021-01-04 17:20] VITALS: BP 159/81
--- NOTE | 2021-01-04 17:44 | NUR ---
ATE MOST OF SUPPER. DENIES NEEDS. NO CHANGES NOTED. FSBS AT 1700 WAS 400. GIVEN 24 UNITS SUBQ PER SS.
[2021-01-04 20:00] VITALS: BP 118/63
[2021-01-05] VITALS: BP 123/89
[2021-01-05 04:00] VITALS: BP 124/49
[2021-01-05 05:32] LABS: BASOPHILS 0.4 % (0-2); EOSINOPHILS 6.2 % (0-7); HEMATOCRIT 41.2 % (36.0-48.0); HEMOGLOBIN 13.6 g/dL (12-16); IMMATURE GRANULOCYTES 0.4 % (0-5); LYMPHOCYTE ABS# 2.68 10x3/uL (1.18-3.74); LYMPHOCYTES 31.3 % (15-50); MCH 28.8 pg (26.0-34.0); MCV 87.3 fL (80.0-100.0); MEAN PLATELET VOLUME 9.3 fL (7.4-10.4); MONOCYTES 8.4 % (2-11); NEUTROPHIL ABS# 4.58 10x3/uL (1.56-6.13); NEUTROPHILS 53.3 % (40-80); PLATELET COUNT 222 10x3/uL (130-400); RBC 4.72 10x6/uL (4.00-5.40); RDW 14.8 % (11.5-14.5)
[2021-01-05 05:34] LABS: WBC 8.6 10x3/uL (4.8-10.8)
[2021-01-05 05:50] LABS: ALBUMIN 3.1 g/dL (3.4-5.0); BILIRUBIN - TOTAL 0.34 mg/dL (0.2-1.3); CALCIUM 8.6 mg/dL (8.5-10.1); MAGNESIUM - SERUM 1.9 mg/dL (1.8-2.4); POTASSIUM - SERUM 4.4 mmol/L (3.5-5.1); PROTEIN - SERUM 6.2 g/dL (6.4-8.2)
[2021-01-05 05:51] LABS: ANION GAP 11.4 mmol/L (8-16)
--- NOTE | 2021-01-05 08:21 | NUR ---
AWAKE AND ALERT. ORIENTED X3. NO C/O AT THIS TIME. LUNGS HAVE FAINT EXPIRATORY WHEEZES AND DIMINISHED THROUGHOUT. OCCASSIONAL PRODUCTIVE COUGH NOTED. SKIN IS INTACT WITHOUT REDNESS. SL TO LEFT FOREARM IS PATENT WITHOUT REDNESS AT INSERTION SITE. DENIES NEEDS.
[2021-01-05 09:30] VITALS: BP 110/76
[2021-01-05] MEDS ORDERED: ZITHROMAX250 MG PO (12:23)
[2021-01-05] MEDS ORDERED: VIBRAMYCIN 100100 MG PO (12:23)
[2021-01-05] MEDS ORDERED: NICODERM CQ1 EAC3 TOPICAL (13:02)
[2021-01-05 13:05] VITALS: BP 115/61
[2021-01-05] MEDS ORDERED: IPRAT-ALBUT 0.5-3 ML UPD (13:47)
--- NOTE | 2021-01-05 14:00 | NUR ---
SL TO LEFT FOREARM D/C WITH CATHETER INTACT. WAITING ON RIDE TO D/C HOME.
--- NOTE | 2021-01-05 15:30 | NUR ---
DISCHARGED TO HOME AMBULATORY WITH . DISCHARGE INSTRUCTIONS GIVEN BOTH VERBALLY AND WRITTEN. ALL QUESTIONS ANSWERED. PATIENT VERBALIZED UNDERSTANDING OF SAME. NEEDED PRESCRIPTIONS ESCRIBED TO PHARMACY OF CHOICE. ALL BELONGINGS WITH PATIENT.
--- NOTE | 2021-01-05 16:41 | MORECARE ---
CASE MANAGEMENT DISCHARGE SUMMARY PATIENT: SHY LUA UNIT: [id number] ADM DATE: 01/01/21 AGE: 45 : 71 SEX: F ROOM/BED: D.2214 AUTHOR: KALEIGH,DOC PHYSICIAN: REFERRING PHYSICIAN: DEJON MILLER MD DATE OF SERVICE: 01/05/21 Discharge Plan Patient Name: SHY LUA Facility: [facility]:[place] : 1975 Planned Disposition: Home Anticipated Discharge Date: 01/05/21 Discharge Date: 01/05/2021 Expected LOS: 4 Initial Reviewer: [email or web address] Initial Review Date: 01/02/2021 Generated: 01/05/21 5:40 pm Comments DCP- Discharge Planning Updated by [email or web address]: Kb Jacques on 01/05/21 2:[address] CM met with patient to complete DC plan and to evaluate needs. Patient lives independently at home with family. At discharge, the patient plans to return home and feels this is a safe discharge. CM discussed availability of home health, rehab services, and medical equipment. Patient declined HHS, SNF, IPR, and DME. [facility]. Patient voiced no other needs at this time and is satisfied with DC plan. Transportation provider at discharge will be with her , Gamaliel. CM will continue to follow and will assist as needed with dc plans/needs. DCPIA - Discharge Planning Initial Assessment Updated by [email or web address]: Kb Jacques on 01/05/21 4:40 pm * Is the patient Alert and Oriented? Yes * How many steps to enter\exit or inside your home? 3/0 * PCP TOMMY * [facility] [address] [facility] * Preadmission Environment Home with Family * ADLs Independent * Equipment Walker * Other Equipment n/a * List name and contact numbers for known caregivers / representatives who currently or will assist patient after discharge: Gamaliel Lua () [phone] * Verbal permission to speak to the caregivers and representatives has been obtained from the patient. Yes * Community resources currently utilized Other * Please name any agencies selected above. [facility] * Additional services required to return to the preadmission environment? No * Can the patient safely return to the preadmission environment? Yes * Has this patient been hospitalized within the prior 30 days at any hospital? No Patient Name: SHY LUA Page [id number] at 1641 All edits/amendments must be made on the electronic document DICTATION DATE: 01/05/21 1640 AIRPLANE COVER MAKER: TERRELL 01/05/21 1640 RPT#: [id number] DC DATE:01/05/21 STATUS: DIS IN [facility] [address] [place] [address] END OF REPORT
--- NOTE | 2021-01-06 08:28 | MORECARE ---
CASE MANAGEMENT DISCHARGE SUMMARY PATIENT: SHY LUA UNIT: [id number] ADM DATE: 01/01/21 AGE: 45 : 71 SEX: F ROOM/BED: D.2214 AUTHOR: KALEIGH,DOC PHYSICIAN: REFERRING PHYSICIAN: DEJON MILLER MD DATE OF SERVICE: 01/06/21 Discharge Plan Patient Name: SHY LUA Facility: [facility]:[place] : 1975 Planned Disposition: Home Anticipated Discharge Date: 01/05/21 Discharge Date: 01/05/2021 Expected LOS: 4 Initial Reviewer: [email or web address] Initial Review Date: 01/02/2021 Generated: 01/06/21 9:27 am Comments DCP- Discharge Planning Updated by [id number]: Kb Jacques on 01/05/21 2:[address] CM met with patient to complete DC plan and to evaluate needs. Patient lives independently at home with family. At discharge, the patient plans to return home and feels this is a safe discharge. CM discussed availability of home health, rehab services, and medical equipment. Patient declined HHS, SNF, IPR, and DME. [facility] Patient voiced no other needs at this time and is satisfied with DC plan. Transportation provider at discharge will be with her , Gamaliel. CM will continue to follow and will assist as needed with dc plans/needs. DCPIA - Discharge Planning Initial Assessment Updated by [email or web address]: Kb Jacques on 01/05/21 4:40 pm * Is the patient Alert and Oriented? Yes * How many steps to enter\exit or inside your home? 3/0 * PCP TOMMY * [facility] [address] [facility] * Preadmission Environment Home with Family * ADLs Independent * Equipment Walker * Other Equipment n/a * List name and contact numbers for known caregivers / representatives who currently or will assist patient after discharge: Gamaliel Lua () [phone] * Verbal permission to speak to the caregivers and representatives has been obtained from the patient. Yes * Community resources currently utilized Other * Please name any agencies selected above. [facility] * Additional services required to return to the preadmission environment? No * Can the patient safely return to the preadmission environment? Yes * Has this patient been hospitalized within the prior 30 days at any hospital? No Last DP export: 01/05/21 2:41 p Patient Name: SHY LUA Page [phone] at 0828 All edits/amendments must be made on the electronic document DICTATION DATE: 01/06/21826 WALL TAPER: TERRELL 01/06/21826 RPT#: [id number] DC DATE:01/05/21 STATUS: DIS IN [facility] [address] [place] [address] END OF REPORT
== END 2021-01-05 15:30 | disposition home or self-care (01) | DRG 637 ==
LOC: D.ER 21:12 → D.EDHOLD 23:53 → D.MS 23:53
PROVIDERS: Family Medicine; ADMIT Family Medicine Adult Medicine; ATTEND Family Medicine Adult Medicine
DX: E11.65 Type 2 diabetes mellitus with hyperglycemia (principal); J18.9 Pneumonia, unspecified organism; J44.0 Chronic obstructive pulmonary disease with (acute) lower respiratory infection; E87.1 Hypo-osmolality and hyponatremia; I16.9 Hypertensive crisis, unspecified; F17.203 Nicotine dependence unspecified, with withdrawal; D68.2 Hereditary deficiency of other clotting factors; Z86.718 Personal history of other venous thrombosis and embolism; Z86.711 Personal history of pulmonary embolism; Z85.42 Personal history of malignant neoplasm of other parts of uterus; I25.10 Atherosclerotic heart disease of native coronary artery without angina pectoris; E78.5 Hyperlipidemia, unspecified

== ENCOUNTER 2021-01-17 22:02 | Observation (INO) | payer BC ==
[~2021-01-17] VITALS: Ht 160 cm; Wt 131.4 kg
--- NOTE | ~2021-01-17 | EC ---
PATIENT:SHY LUA DATE OF SERVICE: 01/17/21 SEX: F MEDICAL RECORD: [id number] DATE OF : [birth year] LOCATION:D.M2 D.213 AGE OF PATIENT: 45 ADMISSION DATE: 01/17/21 REFERRING PHYSICIAN: INTERPRETING PHYSICIAN: ANTONIO SMYTH MD ECHOCARDIOGRAM REPORT ECHO CHARGES 4 ECHO COMPLETE Date: 01/18/21 CLINICAL DIAGNOSIS: CP ECHOCARDIOGRAPHIC MEASUREMENTS (adult normal given) AC root (d.<3.7cm) 2.9 cm LV Septum d (<1.2 cm> 0.8 cm Valve Excursion 1.8 cm LV Septum (systole) 1.0 cm Left Atria (s.<4.0cm> 2.9 cm LVPW d(<1.2cm) 0.7 cm RV (d.<2.3cm) 2.4 cm LVPW (sytole) 1.0 cm LV diastole(<5.6CM) 5.3 cm MV E-F(>70mm/sec) cm LV systole 4.0 cm LVOT Diameter 1.8 cm MV exc.(>10mm) 1.0 cm Est.ejection fraction (50-75%) % DOPPLER: LVIT cm/sec A 52 cm/sec E 37 cm/sec LA cm/sec RVSP 16 mmHg LVOT 104 cm/sec AOP1/2T m/s Asc. Ao 127 cm/sec RVOT 65 cm/sec RA cm/sec PA 72 cm/sec AV Gradient Peak 6.4 mmHg AV Mean 3.1 mmHg AV Area 2.2 cm MV Gradient Peak 3.2 mmHg MV Mean 1.6 mmHg MV Area cm COMMENTS: Music Industry Internship: Nicole CORMIER Urban Design Consultant: 4 Dr. Smyth TAPE# Pericardial Effusion N DATE OF SERVICE: PROCEDURE: Transthoracic echocardiogram. FINDINGS: 1. Left ventricle shows normal size, shape, structure, and function with an ejection fraction of 55%. The patient does have evidence of diastolic dysfunction. RIGHT VENTRICLE: Normal size, shape, structure, and function. ECHOCARDIOGRAM REPORT [id number] SHY LUA AORTIC VALVE: Normal structure and function. MITRAL VALVE: Normal structure and function. TRICUSPID VALVE: Trace tricuspid valve regurgitation with normal right ventricular systolic pressures. Pulmonic valve is normal. LEFT ATRIUM: Normal size and shape. RIGHT ATRIUM: Normal size and shape. IMPRESSION: This is a normal transthoracic echocardiogram with slight exception of mild diastolic dysfunction. TRANSINT:[id number] Voice Confirmation ID: [id number] DOCUMENT ID: [id number] ANTONIO SMYTH MD CC: [id number] DICTATION DATE: 01/19/21 1321 BUMPER STRAIGHTENER: 01/19/212217 DIS IN 01/18/21 [facility] [address] [place] [id number]
--- NOTE | ~2021-01-17 | ST ---
PATIENT:SHY LUA MEDICAL RECORD: [id number] SEX: F LOCATION:[address] ORDER #: ADMISSION DATE: 01/17/21 AGE OF PATIENT: 45 REFERRING PHYSICIAN: INTERPRETING PHYSICIAN: ANTONIO SMYTH MD DATE OF SERVICE: 01/18/2021 LEXISCAN DIRECTED NUCLEAR CARDIAC STRESS TEST PROCEDURE IN DETAIL: The patient was brought into the nuclear lab in a stable condition. The patient was placed in the supine position on the nuclear table. At rest, the patient had 11.1 mCi sestamibi injected and had rest imaging. Then at stress the patient had a standard Lexiscan stress test with subsequent 33 mCi of sestamibi injected. FINDINGS: The patient had a normal ejection fraction of 66%. SPECT imaging showed no evidence of ischemia or infarction. IMPRESSION: The patient had a normal Lexiscan directed nuclear stress test. RECOMMENDATIONS: Continue medical management. TRANSINT:[id number] Voice Confirmation ID: [id number] DOCUMENT ID: [id number] ANTONIO SMYTH MD CC: [id number] DICTATION DATE: 01/19/21 1316 COLLECTOR OF AQUARIUM SPECIMENS: 01/19/219 DIS IN 01/18/21 [facility] [address] [place] [id number]
[~2021-01-17 22:02] MED LIST changes: +NICODERM CQ1 EAC3 TOPICAL; +ZITHROMAX250 MG PO
[2021-01-17 22:32] LABS: BASOPHILS 0.2 % (0-2); EOSINOPHILS 3.2 % (0-7); HEMATOCRIT 50.4 % (36.0-48.0); HEMOGLOBIN 17.7 g/dL (12-16); IMMATURE GRANULOCYTES 0.3 % (0-5); LYMPHOCYTE ABS# 2.42 10x3/uL (1.18-3.74); LYMPHOCYTES 22.1 % (15-50); MCHC 35.1 g/dL (31.0-37.0); MCV 85.4 fL (80.0-100.0); MEAN PLATELET VOLUME 9.6 fL (7.4-10.4); MONOCYTES 7.9 % (2-11); NEUTROPHIL ABS# 7.28 10x3/uL (1.56-6.13); NEUTROPHILS 66.3 % (40-80); PLATELET COUNT 226 10x3/uL (130-400); RDW 14.5 % (11.5-14.5)
[2021-01-17 22:44] LABS: CALC OSMOLALITY 280 mosm/kg (275-300); CALCIUM 9.5 mg/dL (8.5-10.1); CARBON DIOXIDE 25.6 mmol/L (21.0-32.0); CHLORIDE - SERUM 97 mmol/L (98-107); CREATININE - SERUM 0.9 mg/dL (0.6-1.3); SODIUM 132 mmol/L (136-145); UREA NITROGEN 17 mg/dL (7-18); eGFR NON AFRICAN AMERICAN 71 mL/min (90-120)
[2021-01-17 22:48] LABS: GLUCOSE 346 mg/dL (74-106)
[2021-01-17 22:51] LABS: APTT 25.1 SECONDS (22.8-39.4); INR 1.01 (0.85-1.17); PROTIME 12.3 SECONDS (11.6-15.0)
[2021-01-17 22:52] LABS: D-DIMER-QUANTITATIVE 0.51 ug/mLFEU (0.20-0.54)
[2021-01-17 22:54] LABS: ALBUMIN 3.7 g/dL (3.4-5.0); ALKALINE PHOSPHATASE 84 U/L (30-120); ALT (SGPT) 104 U/L (10-68); BILIRUBIN - TOTAL 0.33 mg/dL (0.2-1.3); CKMB 0.1 U/L (0.0-3.6); CREATINE KINASE 38 UL (21-215); MAGNESIUM - SERUM 1.9 mg/dL (1.8-2.4); PROTEIN - SERUM 7.8 g/dL (6.4-8.2)
[2021-01-17 22:55] LABS: TROPONIN-I < 0.017 ng/mL (0.000-0.060)
[2021-01-17 23:24] VITALS: BP 132/96
[2021-01-18 00:46] VITALS: BP 146/92
[2021-01-18] MEDS ORDERED: BUSPAR10 MG PO (01:01)
[2021-01-18] MEDS ORDERED: GLIMEPIRIDE1 MG PO (01:02)
[2021-01-18] MEDS ORDERED: RESTORIL15 MG PO (01:03)
[2021-01-18] MEDS ORDERED: HYDROCODONE-AC1 EAC2 PO (01:05)
[2021-01-18] MEDS ORDERED: JARDIANCE10 MG PO (01:07)
[2021-01-18] MEDS ORDERED: ATARAX 25 MG TA25 MG PO (01:08)
[2021-01-18] MEDS ORDERED: CYMBALTA20 MG PO (01:09)
[2021-01-18 01:43] VITALS: BP 146/92; BMI 51.3
--- NOTE | 2021-01-18 02:01 | NUR ---
REPORT RECEIVED, WILL CONT POC. PT A&O, UP IN BED ON PHONE. NO S/S OF DISTRESS OBSERVED. RR EVEN AND UNLABORED ON 2L NC. BED LOCKED AND LOWERED, CL IN REACH. ASSESSMENT COMPLETED. WILL CONT TO MONITOR.
[2021-01-18 05:15] LABS: BASOPHILS 0.2 % (0-2); EOSINOPHILS 4.7 % (0-7); HEMOGLOBIN 16.1 g/dL (12-16); IMMATURE GRANULOCYTES 0.4 % (0-5); LYMPHOCYTE ABS# 2.97 10x3/uL (1.18-3.74); LYMPHOCYTES 28.6 % (15-50); MCH 29.2 pg (26.0-34.0); MCHC 33.5 g/dL (31.0-37.0); MCV 87.1 fL (80.0-100.0); MEAN PLATELET VOLUME 9.5 fL (7.4-10.4); MONOCYTES 7.8 % (2-11); NEUTROPHIL ABS# 6.06 10x3/uL (1.56-6.13); NEUTROPHILS 58.3 % (40-80); PLATELET COUNT 222 10x3/uL (130-400); RBC 5.51 10x6/uL (4.00-5.40); RDW 14.9 % (11.5-14.5); WBC 10.4 10x3/uL (4.8-10.8)
[2021-01-18 05:37] LABS: ALBUMIN 3.3 g/dL (3.4-5.0); ALKALINE PHOSPHATASE 73 U/L (30-120); ALT (SGPT) 83 U/L (10-68); BILIRUBIN - TOTAL 0.25 mg/dL (0.2-1.3); CALC OSMOLALITY 288 mosm/kg (275-300); CALCIUM 8.8 mg/dL (8.5-10.1); CHLORIDE - SERUM 101 mmol/L (98-107); CKMB 0.3 U/L (0.0-3.6); CREATINE KINASE 30 UL (21-215); CREATININE - SERUM 0.9 mg/dL (0.6-1.3); GLUCOSE 277 mg/dL (74-106); MAGNESIUM - SERUM 1.7 mg/dL (1.8-2.4); POTASSIUM - SERUM 3.7 mmol/L (3.5-5.1); PRO BNP 16 pg/mL (0-125); PROTEIN - SERUM 7.2 g/dL (6.4-8.2); SODIUM 138 mmol/L (136-145); TROPONIN-I < 0.017 ng/mL (0.000-0.060); UREA NITROGEN 21 mg/dL (7-18); eGFR NON AFRICAN AMERICAN 71 mL/min (90-120)
[2021-01-18 05:53] VITALS: BP 156/83
--- NOTE | 2021-01-18 07:10 | NUR ---
LYING IN BED, AWAKE/ALERT/ORIENTED, T/R SELF AD JOELLEN, CONT OF B/B WITH BRPs PER SELF AD JOELLEN, C/O SHARP LOWER CHEST PAIN RATED 8/10, MEDICATED ORDERED (SEE MAR), CALL LIGHT/PHONE WITHIN REACH, NO S/S OF ACUTE DISTRESS OBSERVED.
--- NOTE | 2021-01-18 07:32 | NUR ---
PTS IV POSITIONAL. STARTED NEW IV 222G TO LEFT HAND.
[2021-01-18 08:20] VITALS: BP 115/80
[2021-01-18 09:58] VITALS: Ht 160 cm; Wt 131.4 kg
[2021-01-18 11:45] LABS: CKMB 0.2 U/L (0.0-3.6); CREATINE KINASE 32 UL (21-215)
[2021-01-18 11:46] LABS: TROPONIN-I < 0.017 ng/mL (0.000-0.060)
[2021-01-18 16:44] LABS: CKMB 0.1 U/L (0.0-3.6); CREATINE KINASE 40 UL (21-215)
[2021-01-18 16:47] LABS: TROPONIN-I < 0.017 ng/mL (0.000-0.060)
--- NOTE | 2021-01-18 17:45 | NUR ---
PROVIDED WRITTEN/VERBAL DISCHARGE INSTRUCTIONS/EDUCATION TO WHICH PT VERBALLY STATED UNDERSTANDING, DISCONTINUED IV ACCESS/CARDIAC TELEMETRY MONITORING, CALL LIGHT/PHONE/WATER WITHIN REACH, NO S/S OF ACUTE DISTRESS OBSERVED.
--- NOTE | 2021-01-18 18:55 | NUR ---
DISCHARGED HOME TO SELF CARE VIA W/C IN STABLE CONDITION ACCOMPANIED BY HOSPITAL STAFF, NO S/S OF ACUTE DISTRESS OBSERVED.
--- NOTE | 2021-01-19 16:55 | MORECARE ---
CASE MANAGEMENT DISCHARGE SUMMARY PATIENT: SHY LUA UNIT: [id number] ADM DATE: 01/17/21 AGE: 45 : 71 SEX: F ROOM/BED: D.2137 AUTHOR: KALEIGH,DOC PHYSICIAN: REFERRING PHYSICIAN: ALLISON DE LOS SANTOS MD DATE OF SERVICE: 01/19/21 Case Management Discharge Planning Summary CT Patient Name: SHY LUA Attending MD : JESUS DE LOS SANTOS, Medical Record: [id number] Encounter : [id number] Facility : [id number] [place] [address] Admission Date : 123:24 Center Discharge Date : 01/18/[address] [place] [address] Date of : DC Plan ID : [id number] Age/Sex/Martia : 45/ F/M Printed on : 01/19/21 16:54 CT DCP Review Details Anticipated D/C: Expected LOS : 0 Case Status : NOTSTART - Initial Reviewe: [id number] - Ann Marie Billingsley Initial Review: 01/19/2021 Planned Disposi: - Final Discharge: - Home or Self Care (Routine Discharge) Final Reviewer : AMIRA : Ann Marie Billingsley Final Review : 01/19/2021 DCP Focus Questions & Answers [facility] SHY LUA MR#: [id number] /Age/Sex/Dhadbw7-Zul-[birth year] /45/F /M Attending Physician Name: FILIBERTO [id number] Patient Account:[id number] [facility] Page -1 of 1 All edits/amendments must be made on the electronic document DICTATION DATE: 01/19/211653 SHIPPING COORDINATOR: TERRELL 01/19/211653 RPT#: [id number] DC DATE:01/18/21 STATUS: DIS IN [address] [address] END OF REPORT
== END 2021-01-18 19:00 | disposition home or self-care (01) ==
LOC: D.ER 22:02 → OBSVTIME 23:24 → D.M2 23:24
PROVIDERS: Family Medicine; ADMIT Family Medicine; ATTEND Family Medicine
DX: I25.110 Atherosclerotic heart disease of native coronary artery with unstable angina pectoris (principal); R00.0 Tachycardia, unspecified; E11.65 Type 2 diabetes mellitus with hyperglycemia; E87.1 Hypo-osmolality and hyponatremia; D72.829 Elevated white blood cell count, unspecified; D75.1 Secondary polycythemia; F17.203 Nicotine dependence unspecified, with withdrawal; I10 Essential (primary) hypertension; E78.5 Hyperlipidemia, unspecified; J44.9 Chronic obstructive pulmonary disease, unspecified; Z79.84 Long term (current) use of oral hypoglycemic drugs

== ENCOUNTER 2021-01-21 23:25 | Observation (INO) | payer MEDICAID ==
[~2021-01-21] VITALS: Ht 160 cm; Wt 126.6 kg
--- NOTE | ~2021-01-21 | CN ---
PATIENT NAME:SHY LUA MEDICAL RECORD: [id number] : 71 LOCATION:D. D.2125 ADMIT DATE: 01/22/21 ACCOUNT: [id number] CONSULTING PHYSICIAN: DOMENIC BYNUM MD REFERRING PHYSICIAN: ELEN VASQUEZ MD DATE OF CONSULTATION: 01/22/2021 HISTORY OF PRESENT ILLNESS: A 45-year-old female with history of coronary artery disease, status post intervention, recently had a nuclear stress testing as well as a echocardiographic study again with no reversible ischemia. She continued to have symptomatology. Mitigating factors, has been diagnosed with uterine carcinoma with mets, starting chemo a couple of weeks. We are asked to see her concerning cardiovascular status. PAST MEDICAL HISTORY: Includes; 1. History of hypertension. 2. Hyperlipidemia. 3. Coronary artery disease as described above. 4. Obstructive pulmonary disease. 5. Dyslipidemia. ALLERGIES: IODINE, PENICILLIN AND TRAMADOL. MEDICATIONS: Albuterol 2 puffs every 4 hours p.r.n., Flexeril 10 mg p.o. t.i.d., DuoNeb 3 mL q.i.d., Pradaxa 75 b.i.d., atorvastatin 20 every day, Ranexa 500 b.i.d., Imdur 30 every day, diltiazem 240 every day, Benicar, aspirin 81 every day, Cymbalta 20 every day, Atarax 25 t.i.d., Amaryl 1 mg b.i.d., Jardiance 25 mg p.o. every day. SOCIAL HISTORY: Smokes tobacco a pack a day, nondrinker. No set exercise program. REVIEW OF SYSTEMS: The patient reports easy bruising but reports no swollen glands. The patient reports no fever, no night sweats, no significant weight gain, no significant weight loss. No significant exercise tolerance. The patient reports no dry eyes, no irritation, no vision change. Patient reports no difficulty hearing and no ear pain. Patient reports no frequent nose bleeds or nose and sinus problems. Patient reports on arm pain on exertion. No shortness of breath while lying down. No history of heart murmur. Patient reports no cough, no wheezing or coughing up blood. Patient reports no abdominal pain, no vomiting. Normal appetite. No diarrhea and not vomiting blood. No nausea and no constipation. Patient reports no incontinence. No difficulty urinating. No hematuria. No increased frequency. Patient reports no muscle aches. No weakness, no arthralgias, no back pain. No swelling of the extremities. Patient reports no abnormal mole, no jaundice, no rashes. Reports no loss of consciousness. No weakness and no numbness. No seizures, dizziness, or headaches. The patient reports no depression, no sleep disturbance, feeling safe in a relationship and no alcohol abuse. Patient reports on fatigue. Reports no runny nose or sinus pressure. No itching, no hives, and no frequent sneezing. PHYSICAL EXAMINATION: GENERAL: Pleasant, no acute distress, appears stated age. VITAL SIGNS: Blood pressure 130/87, pulse 79 and regular. HEENT: Normocephalic, atraumatic. CONSULT REPORT [id number] SHY LUA NECK: No JVD or bruit. HEART: Regular. A II/ systolic ejection murmur. LUNGS: Good air excursion. ABDOMEN: Soft and nontender. EXTREMITIES: Pulses 1+ with no edema. IMPRESSION: Continued anginal symptomatology despite medications and negative nuclear stress testing. PLAN: For angiography, intervention based on the above. TRANSINT:[id number] Voice Confirmation ID: [id number] DOCUMENT ID: [id number] DOMENIC BYNUM MD CC: [id number] DICTATION DATE: 01/22/21 1157 REFUSE COLLECTOR: 01/22/21 1318 ADM [place] [address] [place] [id number]
--- NOTE | ~2021-01-21 | OP ---
PATIENT NAME: SHY LUA MEDICAL RECORD: [id number] :71 LOCATION:D.M2 D.2125 ADMISSION DATE:01/22/21 SURGEON: DOMENIC BYNUM MD DATE OF OPERATION: 01/22/2021 PROCEDURE: Left heart catheterization, selective coronary angiography, right femoral artery approach. CATHETERS: A 5-Moldovan sheath, 5/4 left and right Willi, 5/4 pig. The procedure was well tolerated. The patient was returned to the aleman. Sheath removed. ExoSeal device was placed. FINDINGS: Left ventriculography in 30-degree WEBB view: Normal wall motion and normal systolic function. CORONARY ANATOMY: LEFT MAIN: Left main is free of disease. LAD: LAD at the takeoff of the first diagonal has 80% stenosis fairly discrete. CIRCUMFLEX: Previously placed stent is widely patent. RIGHT CORONARY ARTERY: Patent stent. No progression of [place] disease. PLAN: Intervention to LAD momentarily. DESCRIPTION: A 5-Moldovan sheath was exchanged for a 6-Moldovan sheath. XB LAD guide catheter provided excellent guide catheter support followed by 300 cm Minamo wire which was placed across the occluded LAD down distal portion of the vessel. Stent deployed was a 3.0 x 12 mm Integrity nondrug-eluting stent up to 14 atmospheres for 45 seconds. Final angiography shows excellent resolution of the 80% stenosis, no significant residual. NEIL flow was 3 throughout the procedure. Sheath closed with ExoSeal device. Plavix loaded in the lab. TRANSINT:[id number] Voice Confirmation ID: [id number] DOCUMENT ID: [id number] DOMENIC BYNUM MD CC: [id number] DICTATION DATE: 01/22/21 124 CONCRETE FLOATER: 01/22/212053 DIS IN 01/22/21 [facility] [address] [place] [address]
--- NOTE | ~2021-01-21 | HEMODYNAMI ---
PATIENT:SHY LUA MEDICAL RECORD: [id number] : 71 LOCATION:[facility] D.[address] [facility]# [id number] ADMISSION DATE: 01/22/21 Generatedon:112:43 Patient name: SHY LUA Patient #: [id number] SSN: [id number] : 1975 Date of study: 01/22/2021 Page: Of Hemodynamic Procedure Report Patient Data Patient Demographics Procedure consent was obtained First Name: SHY Gender: Female Last Name: CHANELL : 1975 Middle Initial: R Age: 45 year(s) Patient #: [id number] Race: SSN: [id number] Additional ID: [id number] Contact details Address: [address] [place] [address] State: [place] City: [place] Zip code: [address] Past Medical History Allergies Allergen Reaction Date Comments Reported Other allergy 01/22/2021 SEE CHART Admission Admission Data Admission Date: 01/22/2021 Admission Time: 0:59 Arrival Date: 01/22/2021 Arrival Time: 0:59 Admit Source: Emergency Insurance Payor: Private department health insurance Room #: .2[address] [facility] #: [id number] Height (in.): 62.99 BSA: 2.22 (m2) Height (cm.): 160 BMI: 49.22 (kg/m2) Weight (lbs.): 277.78 Weight (kg.): 126 Lab Results Lab Result Date: 01/22/2021 Lab Result Time: 0:00 Biochemistry Name Units Result Min Max BUN mg/dl 13 --(--*-)-- 7 18 Creatinine mg/dl 0.7 --(*---)-- 0.6 1.3 CBC Name Units Result Min Max Hemoglobin g/dl 15.8 --(--*-)-- 13.5 17.5 Procedure Procedure Types Cath Procedure Diagnostic Procedure C [facility] w/Coronaries Sedation Charges Moderate Sedation 10-24 minutes PCI Procedure Coronary Stent Coronary Stent Initial Hemochron ACT Test Procedure Description Procedure Date Procedure Date: 01/22/2021 Procedure Start Time: 12:20 Procedure End Time: 12:37 Procedure Staff Name Function Amish Alex MD Performing Physician Rafaela Joseph RT Monitor Doreen Diaz RT Scrub Rosemary Doshi RN Nurse Procedure Data Cath Procedure Fluoroscopy Diagnostic fluoroscopy Total fluoroscopy Time: 3.4 time: 3.4 min min Diagnostic fluoroscopy Total fluoroscopy dose: 542 dose: 542 mGy mGy Contrast Material Contrast Material Type Amount (ml) Isovue 370 87 Entry Location Entry Primary Successful Side Size Upsize Upsize Entry Closure Succes sful Closure Location (Fr) 1 (Fr) 2 (Fr) Remarks Device Remarks Femoral Right 5 Fr 6 Fr Exoseal artery Short Estimated blood loss: 10 ml Diagnostic catheters Device Type Used For End Catheter Placement MULTIPACK JL 4.0 5Fr Procedure catheter MULTIPACK 3DRC 5Fr Procedure catheter MULTIPACK Pigtail 5 Fr Procedure catheter Procedure Complications No complications Procedure Medications Medication Administration Route Dosage Oxygen etCO2 Nasal cannula 2 l/min Lidocaine 2% added to field 20 Heparin Flush Bag added to field 2 bags (1000units/500ml NS) 0.9% NaCl I.V. 100 ml/hr Solumedrol I.V. 125 mg Pepcid I.V. 20 mg Benadryl I.V. 50 mg Versed I.V. 1 mg Fentanyl I.V. 50 mcg Versed I.V. 1 mg Fentanyl I.V. 25 mcg Heparin Bolus I.V. 5000 units Integrilin (Bolus I.V. 11.3 ml 2mg/ml) Versed I.V. 1 mg Plavix P.O. 600 mg Hemodynamics Rest BSA: 2.22 (m2) HGB: 15.8 (g/dl) O2 Consumption: Estimated: 229.25 (ml/min) O2 Co nsumption indexed: Estimated:103.27 (ml/min/m) Heart Rate: 81 (bpm) Pressure Samples Time Site Value (mmHg) Purpose Heart Use Rate(bpm) 12:25 LV 118/22,27 Snapshot 85 Gradients Valve Time Site Site Mean SEP/DFP Peak To Heart Use 1 2 (mmHg) (sec/min) Peak Rate (mmHg) (bpm) Aortic 12:26 LV AO 83 Snapshots Pre Cath Intra NCS Post Cath Vital Signs Time Heart Resp SPO2 etCO2 NIBP (mmHg) Rhythm Pain Sedation Rate (ipm) (%) (mmHg) Status Level (bpm) 12:11:51 81 13 99 41.7 166/116(138) NSR 0 (11) 10(A) , No pain 12:16:05 77 12 100 44 160/97(136) NSR 0 (11) 10(A) , No pain 12:20:17 84 13 98 47.8 153/97(146) NSR 0 (11) 10(A) , No pain 12:24:27 81 15 99 0 142/98(125) NSR 0 (11) 10(A) , No pain 12:28:35 81 18 98 13.6 116/86(110) NSR 0 (11) 10(A) , No pain 12:32:34 84 17 98 0 118/82(109) NSR 0 (11) 9(A) , No pain 12:37:25 89 22 100 44.7 166/118(148) NSR 0 (11) 9(A) , No pain 12:42:49 92 12 97 25.7 144/104(124) NSR 0 (11) 10(A) , No pain Medications Time Medication Route Dose Verified Delivered Reason Notes Effectiveness by by 12:09:37 Solumedrol I.V. 125 Amish Riley Per physician mg [facility] [place] Doshi RN, MD 12:10:58 Oxygen etCO2 2 Amish Riley used for Nasal l/min [facility] [place] Doshi RN procedure cannula 12:11:04 Lidocaine 2% added 20ml Amish Wellington for local to vial [facility] anesthetic field MD PEDERSON 12:11:12 Heparin Flush added 2 Amish Amish used for Bag to bags [facility] procedure (1000units/500ml field MD PEDERSON NS) 12:11:20 0.9% NaCl I.V. 100 Amish Riley Per physician ml/hr [facility] [place] Doshi RN, MD 12:11:46 Pepcid I.V. 20 mg Amish Riley Per physician [facility] [place] Doshi RN, MD 12:14:22 Benadryl I.V. 50 mg Amish Rilye Per physician [facility] [place] Doshi RN, MD 12:16:05 Versed I.V. 1 mg Amish Riley for sedation [facility] [place] Doshi RN, MD 12:16:11 Fentanyl I.V. 50 Amish Riley for sedation mcg [facility] [place] Doshi RN, MD 12:26:20 Versed I.V. 1 mg Amish Riley for sedation [facility] [place] Doshi RN, MD 12:26:24 Fentanyl I.V. 25 Amish Riley for sedation mcg [facility] [place] Doshi RN, MD 12:27:30 Heparin Bolus I.V. 5000 Amish Riley for verif ied units [facility] [place] Doshi RN anticoagulation with dr MD camara 12:32:41 Integrilin I.V. 11.3 Amish Riley for Waste d (Bolus 2mg/ml) ml [facility] [place] Doshi RN antiplatelet 8.3 ml MD therapy of vial 12:35:20 Versed I.V. 1 mg Amish Riley for sedation [facility] [place] Doshi RN, MD 12:39:34 Plavix P.O. 600 Amish Riley for mg [facility] [place] Doshi RN antiplatelet therapy Procedure Log Time Note 11:05:38 Diagnostic Cath Status : Urgent 11:05:59 Informed consent obtained and on chart 11:06:09 Admit Source: Emergency department 11:06:13 Arrival Date: 01/22/2021 12:59:00 AM 11:06:38 Insurance Payor : Private health insurance 11:06:41 Patient Height : 62.99 inches 11:06:44 Patient Weight : 277.78 lbs 11:07:14 Lab Result : Hemoglobin 15.8 g/dl 11:07:14 Lab Result : Creatinine 0.7 mg/dl 11:07:14 Lab Result : BUN 13 mg/dl 11:07:27 Procedure Status Urgent Heart Cath (IP). 11:07:31 Time tracking: Regular hours (M-F 7:00 - 5:00) 11:07:35 Plan of Care:Hemodynamics will remain stable., Cardiac rhythm will remain stable., Comfort level will be maintained., Respiratory function will remain adequate., Patient/ family verbilizes understanding of procedure., Procedure tolerated without complication., Recovers from procedure without complications.. 11:21:18 ACC Patient presents with Unstable Angina CCS Anginal Class 2--Slight limitation of ordinary activity. 11:21:25 Rosemary Doshi RN sent for patient. Start room use. 11:25:00 H&P Date Dictated: 01/22/2021 New H&P dictated by physician.. 11:25:02 Pre-procedure instructions explained to patient. 11:25:03 Pre-op teaching completed and patient verbalized understanding. 11:25:04 Family unavailable. 11:25:06 Patient NPO since Midnight. 11:25:08 Is the patient allergic to Iodine/contrast media? Yes. 11:25:15 Lab results completed and on chart. 11:25:17 Stress Test: no; N/A ? 11:25:18 Alarms reviewed by R. N. 11:25:19 Sharps counted by scrub and verified by R.N. 11:26:52 Risk of Mortality: 0.1 11:26:55 Risk of blood transfusion: 2.8 11:26:58 Risk of WANDA: 5.6 11:27:01 Right groin area was prepped with chlora-prep and draped in sterile fashion 11:31:51 Use device set Femoral Dx 11:31:53 ACIST Syringe (12888) opened to sterile field. 11:31:53 Bag Decanter (2002S) opened to sterile field. 11:31:54 Medline Cath Pack ([id number]) opened to sterile field. 11:31:55 ACIST Hand Control (66318) opened to sterile field. 11:31:56 ACIST Manifold (33484) opened to sterile field. 11:31:56 DIAGNOSTIC Multipack 5Fr catheter set ([id number]) opened to sterile field. 11:31:57 SHEATH 5FR Chapman (NJW983) opened to sterile field. 11:31:58 EMERALD Guide Wire (864-872) opened to sterile field. 11:46:54 Patient received from Med II to CCL 1 Alert and oriented. Tansferred to table in Supine position. 11:46:55 Warm blankets applied, and ilana hugger turned on for patient comfort. 11:46:55 Correct patient and procedure confirmed by team. 11:46:56 ECG and BP/O2 sat monitors applied to patient. 11:56:23 Was the patient premedicated? Yes 11:56:25 Is patient on blood thinner?Yes 11:56:29 ACC The patient was administered the following blood thiners within the last 24 hours: ACCPradaxa 11:56:31 Patient diabetic? Yes. 11:56:33 If diabetic: On Metformin? No 11:56:46 Patient not . Patient has had hysterectomy. 11:56:48 ----Pre-sedation anethsthesia assessment.---- 11:56:51 Previous problem with sedation/anesthesia? No ? 11:56:52 Snore? Yes 11:56:54 Sleep apnea? Unknown 11:56:55 Deviated septum? No 11:56:56 Opens mouth fully? Yes 11:56:57 Sticks out tongue? Yes 11:57:02 Airway obstruction? Yes COPD, ASTHMA SLEEPS WITH O2 11:57:06 Dentures? No ? 11:57:29 Patient pain scale 0/10 ?. 12:09:37 Solumedrol 125 mg I.V. was administered by Rosemary Doshi RN; Per physician; Verbal order read back and verified. 12:10:47 Vital chart was started 12:10:48 Full Disclosure recording started 12:10:55 Baseline sample Acquired. 12:10:58 Oxygen 2 l/min etCO2 Nasal cannula was administered by Rosemary Doshi RN; used for procedure; Verbal order read back and verified. 12:10:59 Rhythm: sinus rhythm 12:11:04 Lidocaine 2% 20ml vial added to field was administered by Amish Alex MD; for local anesthetic; Verbal order read back and verified. 12:11:12 Heparin Flush Bag (1000units/500ml NS) 2 bags added to field was administered by Amish Alex MD; used for procedure; Verbal order read back and verified. 12:11:12 Patient allergic to Other allergySEE CHART 12:11:20 0.9% NaCl 100 ml/hr I.V. was administered by Rosemary Doshi RN; Per physician; Verbal order read back and verified. 12:11:36 IV started by Rosemary Doshi RN inright hand with a 24 gauge IV catheter with 0.9% NaCl at KVO. 12:11:46 Pepcid 20 mg I.V. was administered by Rosemary Doshi RN; Per physician; Verbal order read back and verified. 12:11:46 --------ALL STOP TIME OUT------ 12:11:47 Final Timeout: patient, procedure, and site verified with staff and physician. All members of the team are in agreement. 12:11:49 Right groin site verified by team. 12:11:54 Fire Safety Assessment: A--An alcohol-based skin anteseptic being used preoperatively., C--Open oxygen or nitrous oxide is being used., D--An ESU, laser, or fiber-optic light is being used. 12:11:57 Physical assessment completed. ASA score P 2 - A patient with mild systemic disease as per Amish Alex MD. 12:11:59 1) 90+ Normal kidney functon but urine findings or structural abnormalities or genetic trait point to kidney disease. 12:12:01 Maximum allowable contrast dose (3.7 X eGFR X 0.75)250 ml. 12:12:04 Sedation plan: IV Moderate Sedation Medication:Versed, Fentanyl 12:14:22 Benadryl 50 mg I.V. was administered by Rosemary Doshi RN; Per physician; Verbal order read back and verified. 12:16:05 Versed 1 mg I.V. was administered by Rosemary Doshi RN; for sedation; Verbal order read back and verified. 12:16:11 Fentanyl 50 mcg I.V. was administered by Rosemray Doshi RN; for sedation; Verbal order read back and verified. 12:20:19 Procedure started. 12:20:40 Local anesthetic to right femoral artery with Lidocaine 2% by Amish Alex MD.INITIAL ACCESS ONLY 12:21:46 A 5 Fr sheath was inserted into the Right Femoral artery 12:22:05 Tegaderm 4 x 4 (1626W) opened to sterile field. 12:22:08 A MULTIPACK JL 4.0 5Fr catheter was advanced over the wire and used for Procedure. 12:22:47 LCA angiography performed. 12:23:05 Injector settings: Ml/sec: 3, Volume: 6, 12:23:29 Catheter removed. 12:23:36 A MULTIPACK 3DRC 5Fr catheter was advanced over the wire and used for Procedure. 12:24:08 RCA angiography performed. 12:24:37 Injector settings: Ml/sec: 3, Volume: 6, 12:25:38 A MULTIPACK Pigtail 5 Fr catheter was advanced over the wire and used for Procedure. 12:25:48 LV hemodynamics recorded. 12:25:49 LV gram done using WEBB 12:26:05 EF : 55 % 12:26:09 Catheter removed. 12:26:17 Proceeding to intervention. 12:26:20 Versed 1 mg I.V. was administered by Rosemary Doshi RN; for sedation; Verbal order read back and verified. 12::24 Fentanyl 25 mcg I.V. was administered by Rosemary Doshi RN; for sedation; Verbal order read back and verified. 12:26:26 Use device set ROSHARON PCI 12:26:57 SHEATH 6FR Chapman (PPK982) opened to sterile field. 12::59 INFLATOR Merit BasixCompak (AJ2344) opened to sterile field. 12:27:19 Sheath upsized to a 6 Fr Short. 12:27:29 GUIDE 6FR XBLAD 3.5 catheter ([id number]) opened to sterile field. 12:27:30 Heparin Bolus 5000 units I.V. was administered by Rosemary Doshi RN; for anticoagulation; verified with dr camara Verbal order read back and verified. 12:27:35 6 Fr XBLAD 3.5 guide catheter was inserted over the wire 12:28:43 Pre PCI Site: [place] LAD has 80% stenosis. 12:28:48 Asahi Minamo 300cm wire opened to sterile field. 12:28:58 ADAHI MINAMO 300 wire advanced. 12:30:09 Wire advanced across lesion. 12:32:41 Integrilin (Bolus 2mg/ml) 11.3 ml I.V. was administered by Rosemary Doshi RN; for antiplatelet therapy; Wasted 8.3 ml of vial Verbal order read back and verified. 12:32:56 Place stent Inflation Number: 1 A INTEGRITY RX 3.0 x 15 stent ([id number]) was prepped and advanced across the Mid LAD 80. The stent was deployed at 14 LUPE for 0:00 (min:sec) . 12:33:13 Stent catheter was removed intact over wire. 12:33:14 Wire removed. 12:33:14 Guide catheter removed. 12:33:46 EXOSEAL 6Fr (EX600) opened to sterile field. 12:34:21 Sheath removed intact; hemostasis achieved with Exoseal to the Right Femoral artery. 12:35:00 Fluoroscopy time 03.40 minutes. 12:35:04 Fluoroscopy dose: 542 mGy 12:35:04 Flurop Dose total: 542 12:35:10 Dose Area Product 99023 mGy/cm. 12:35:18 Contrast amount:Isovue 370 87ml. 12:35:20 Versed 1 mg I.V. was administered by Rosemary Doshi RN; for sedation; Verbal order read back and verified. 12:35:20 Maximum allowable dose exceeded? No. 12:35:21 Sharps counted by scrub and verified by R.N. 12:35:26 Post-op/insertion site Right Femoral artery dressed using a 4 x 4 and Tegaderm. 12:35:30 Post right femoral artery:stable, soft, clean and dry 12:35:32 Post Procedure Pulses reassessed and unchanged 12:35:35 Post procedure: right dorsailis pedis pulse 2+ Normal; easily identifiable; not easily obliterated. 12:35:38 Post-procedure physical assessment completed. ASA score P 2 - A patient with mild systemic disease as per Amish Alex MD. 12:35:41 Post procedure rhythm: unchanged. 12:35:43 Estimated blood loss: 10 ml 12:35:45 Post procedure instruction explained to patient.Patient verbalizes understanding. 12:35:45 Patient needs reinforcement of post procedure teaching. 12:36:00 Procedure ended.(Physican Out) 12:36:21 Procedure type changed to Cath procedure, Diagnostic procedure, LHC, C w/Coronaries, Sedation Charges, Moderate Sedation 10-24 minutes, PCI procedure, Coronary Stent, Coronary Stent Initial, Hemochron ACT Test 12:36:26 Procedure and supply charges have been captured, reviewed, submitted and are correct. 12:36:31 Procedure Complication : No complications 12:36:55 [facility] Findings: MVD- PCI performed (see procedure note) 12:37:01 Operative report dictated upon procedure completion. 12:37:02 See physician's report for complete and final results. 12:37:10 Report given to [facility]. 12:37:13 Patient transfered to [facility] with Bed. 12:37:15 Procedure ended. 12:37:15 Full Disclosure recording stopped 12:37:29 End room use (Document Last) 12:39:34 Plavix 600 mg P.O. was administered by Rosemary Doshi RN; for antiplatelet therapy; Verbal order read back and verified. 12:39:49 ACT drawn and resulted at 214 seconds. (normal therapeutic range 180-240 seconds). 12:43:45 Vital chart was stopped Intervention Summary Intervention Notes Time ActionType Lesion and Equipment Action# Pressure Duration Attributes Used 12:32:56 Place stent Mid LAD INTEGRITY RX 1 14 00:00 3.0 x 15 stent ([id number]) Device Usage Item Name Manufacture Quantity Catalog Hospital Part Current Minima l Lot# / Number Charge Number Stock Stock Serial# Code ACIST Acist 1 07935 848573 192085 946651 20 Syringe Medical (98213) Systems Inc Bag Decanter Microtek 1 2001S 577396 53830 609985 5 () Medical Inc. Medline Cath Medline 1 [id number] 426616 31791 545805 5 Pack ([id number]) ACIST Hand Acist 1 95392 212161 531530 895379 5 Control Medical (92997) Systems Inc ACIST Acist 1 10433 023182 198597 129256 5 Manifold Medical (67855) Systems Inc DIAGNOSTIC Cardinal 1 HL4390 070323 60114 261598 30 MultipBelleds Technologies 5Fr catheter set ([id number]) SHEATH 5FR Terumo 1 JQY396 342379 365168 135569 5 Chapman (RFS324) EMERALD Cardinal 1 502-455 684846 997904 220745 5 Guide Wire [facility] (502-455) Tegaderm 4 x 3M 1 1626W 795757 748730 347318 5 4 (1626W) MULTIPACK JL Cardinal 1 678345 5 4.0 5Fr Health catheter MULTIPACK Cardinal 1 450941 5 3DRC 5Fr Health catheter MULTIPACK Cardinal 1 977290 5 Pigtail 5 Fr Health catheter SHEATH 6FR Terumo 1 ULZ079 190337 683854 726936 40 Chapman (IQV532) INFLATOR Merit 1 YY4078 868490 583986 961255 15 SysClass Medical BasixCompak (CQ6056) GUIDE 6FR Cardinal 1 [id number] 182793 629653 962561 10 XBLAD 3.5 Health catheter ([id number]) INTEGRITY RX Medtronic 1 [id number] 365589 002492 991105 5 [id number] 3.0 x 15 stent ([id number]) EXOSEAL 6Fr Cardinal 1 EX600 430947 698771 965381 10 (EX600) Keenjar [facility] Intecc 1 [id number] 245271 5410297 287829 0 300cm wire Signature Audit [place] Time Signature Unsigned Intra-Procedure 01/22/2021 Rafaela Joseph 12:38:07 PM RT(R) Intra-Procedure 01/22/2021 Rosemary Doshi RN 12:38:20 PM Intra-Procedure 01/22/2021 Amish Aviles 12:43:[address] [facility] [address] [place] [address]
[~2021-01-21 23:25] MED LIST changes: +ATARAX 25 MG TA25 MG PO; +BUSPAR10 MG PO; +CYMBALTA20 MG PO; +GLIMEPIRIDE1 MG PO; +HYDROCODONE-AC1 EAC2 PO; +JARDIANCE10 MG PO; +RESTORIL15 MG PO
[2021-01-22] VITALS (13 sets, daily range): BP systolic 107–160; BP diastolic 72–105; Ht 160 cm; Wt 126.6 kg
[2021-01-22 00:21] LABS: CALC OSMOLALITY 285 mosm/kg (275-300); CARBON DIOXIDE 29.1 mmol/L (21.0-32.0); CHLORIDE - SERUM 98 mmol/L (98-107); CREATININE - SERUM 0.9 mg/dL (0.6-1.3); POTASSIUM - SERUM 3.7 mmol/L (3.5-5.1); SODIUM 135 mmol/L (136-145); UREA NITROGEN 12 mg/dL (7-18); eGFR NON AFRICAN AMERICAN 71 mL/min (90-120)
[2021-01-22 00:23] LABS: GLUCOSE 385 mg/dL (74-106)
[2021-01-22 00:28] LABS: BASOPHILS 0.2 % (0-2); EOSINOPHILS 5.2 % (0-7); HEMATOCRIT 51.8 % (36.0-48.0); IMMATURE GRANULOCYTES 0.2 % (0-5); LYMPHOCYTE ABS# 2.67 10x3/uL (1.18-3.74); LYMPHOCYTES 30.4 % (15-50); MCH 30.1 pg (26.0-34.0); MCHC 34.7 g/dL (31.0-37.0); MCV 86.6 fL (80.0-100.0); MEAN PLATELET VOLUME 9.8 fL (7.4-10.4); MONOCYTES 6.6 % (2-11); NEUTROPHIL ABS# 5.04 10x3/uL (1.56-6.13); NEUTROPHILS 57.4 % (40-80); PLATELET COUNT 200 10x3/uL (130-400); RBC 5.98 10x6/uL (4.00-5.40); RDW 14.6 % (11.5-14.5); WBC 8.8 10x3/uL (4.8-10.8)
[2021-01-22 00:31] LABS: ALBUMIN 3.7 g/dL (3.4-5.0); ALKALINE PHOSPHATASE 98 U/L (30-120); ALT (SGPT) 104 U/L (10-68); BILIRUBIN - TOTAL 0.38 mg/dL (0.2-1.3); CREATINE KINASE 39 UL (21-215); PROTEIN - SERUM 8.1 g/dL (6.4-8.2); TROPONIN-I < 0.017 ng/mL (0.000-0.060)
[2021-01-22 00:32] LABS: APTT 27.6 SECONDS (22.8-39.4); INR 1.02 (0.85-1.17); PROTIME 12.4 SECONDS (11.6-15.0)
[2021-01-22] MEDS ORDERED: JARDIANCE25 MG PO (01:54)
--- NOTE | 2021-01-22 02:30 | NUR ---
REPORT RECEIVED, WILL CONT POC. PT A&O, UP IN BED ON PHONE. NO S/S OF DISTRESS OBSERVED. RR EVEN AND UNLABORED ON RA. BED LOCKED AND LOWERED, CL IN REACH. ASSESSMENT COMPLETED AT THIS TIME. WILL CONT TO MONITOR.
[2021-01-22 06:03] LABS: BASOPHILS 0.3 % (0-2); EOSINOPHILS 5.9 % (0-7); HEMATOCRIT 46.4 % (36.0-48.0); HEMOGLOBIN 15.8 g/dL (12-16); IMMATURE GRANULOCYTES 0.3 % (0-5); LYMPHOCYTE ABS# 2.78 10x3/uL (1.18-3.74); LYMPHOCYTES 36.7 % (15-50); MCH 29.5 pg (26.0-34.0); MCHC 34.1 g/dL (31.0-37.0); MCV 86.6 fL (80.0-100.0); MEAN PLATELET VOLUME 9.6 fL (7.4-10.4); MONOCYTES 8.4 % (2-11); NEUTROPHIL ABS# 3.67 10x3/uL (1.56-6.13); NEUTROPHILS 48.4 % (40-80); PLATELET COUNT 192 10x3/uL (130-400); RBC 5.36 10x6/uL (4.00-5.40); RDW 14.4 % (11.5-14.5); WBC 7.6 10x3/uL (4.8-10.8)
[2021-01-22 06:35] LABS: ALBUMIN 3.1 g/dL (3.4-5.0); ALKALINE PHOSPHATASE 73 U/L (30-120); ALT (SGPT) 83 U/L (10-68); CALC OSMOLALITY 282 mosm/kg (275-300); CALCIUM 9.2 mg/dL (8.5-10.1); CARBON DIOXIDE 27.1 mmol/L (21.0-32.0); CHLORIDE - SERUM 103 mmol/L (98-107); CREATININE - SERUM 0.7 mg/dL (0.6-1.3); MAGNESIUM - SERUM 1.8 mg/dL (1.8-2.4); PHOSPHOROUS 4.9 mg/dL (2.5-4.9); POTASSIUM - SERUM 3.4 mmol/L (3.5-5.1); PROTEIN - SERUM 6.8 g/dL (6.4-8.2); SODIUM 138 mmol/L (136-145); UREA NITROGEN 13 mg/dL (7-18); eGFR NON AFRICAN AMERICAN > 90 mL/min (90-120)
[2021-01-22 06:36] LABS: GLUCOSE 233 mg/dL (74-106)
[2021-01-22 07:04] LABS: CREATINE KINASE 34 UL (21-215); TROPONIN-I < 0.017 ng/mL (0.000-0.060)
--- NOTE | 2021-01-22 08:45 | NUR ---
PT AWAKE AND ALERT, RR EVEN NON LABORED. PT SPOKE WITH DR. BALTAZAR AND SHE WILL HAVE A HEART CATH TODAY. PT DENIES ANY QUESTIONS. NURSE WILL BEGIN PRE OP PROCESS.
[2021-01-22 09:05] LABS: CHOL - HDL RATIO 5.5 ratio (2.3-4.1); LDL-HDL RATIO 3.4 ratio (1.5-3.5)
--- NOTE | 2021-01-22 10:14 | NUR ---
IV TO RIGHT WRIST INFILATRATED. NURSE ATTEMPTED MULTIPLE TIMES TO START NEW IV, UNABLE TO OBTAIN ACCESS. NOTIFIED MANAGER OF DISASTER RECOVERY. PO PREOP MED GIVEN. PT CLIPPED AND HIBACLEANSE WIPE DOWN GIVEN. NO FURTHER NEEDS VOICED. CLWR.
--- NOTE | 2021-01-22 11:34 | NUR ---
HEART CATH TEAM ARRIVED TO TAKE PT.
--- NOTE | 2021-01-22 13:00 | NUR ---
PT ARRIVED FROM MARINE SURVEYOR AT THIS TIME. PT AWAKE AND ALERT, DROWSINESS NOTED. PT INSTRUCTED REGARDING LYING FLAT, RR EVEN NON LABORED, O2 APPLIED D/T PT SLEEPING ON AND OFF. PT STATES UNDERSTANDING REGARDING NO BENDING OR SITTING UP. DRINK GIVEN PER REQUEST. NO FURTHER NEEDS VOICED. CLWR.
[2021-01-22 13:16] LABS: CKMB 0.2 U/L (0.0-3.6); CREATINE KINASE 35 UL (21-215)
[2021-01-22 13:17] LABS: TROPONIN-I < 0.017 ng/mL (0.000-0.060)
--- NOTE | 2021-01-22 14:14 | NUR ---
PT GIVEN PRN MEDICATION D/T PAIN TO NECK FROM CHRONIC PAIN AND RIGHT GROIN POST OP. PT AWAKE AND ALERT, PT LOOKING ON CELL PHONE, SPOUSE AT BEDSIDE. PT FLAT AND POST OP SITE FREE OF BRUISING AND BLOOD. NO FURTHER NEEDS VOICED. CLWR.
--- NOTE | 2021-01-22 16:41 | NUR ---
PT LYING FLAT, TOLERATING WITH SOME DISCOMFORT. PT RR EVEN NON LABORED. PT AWARE SHE WILL BE D/C 'D TODAY. SPOUSE AT BEDSIDE. NO NEEDS VOICED AT THIS TIME. CLWR.
--- NOTE | 2021-01-22 17:13 | NUR ---
D/C INSTRUCTIONS GIVEN TO PT AT THIS TIME INCLUDING A HANDOUT TO TAKE HOME. DRESSING TO RIGHT GROIN DRY AND INTACT. PT STATES UNDERSTANDING, NO QUESTIONS VOICED. IV D/C WITH CATHETER INTACT, DRESSING APPLIED. PT DENIES NEEDING ASSISTANCE GETTING DRESSED, SPOUSE AT BEDSIDE.
--- NOTE | 2021-01-22 17:34 | NUR ---
PT WHEELED TO PRIVATE VEHICLE AT THIS TIME BY PCT. NO DISTRESS NOTED ON DEPARTURE. ALL BELONGINGS WITH PT TIME OF D/C.
[2021-01-23] MEDS ORDERED: PLAVIX75 MG PO (12:31)
== END 2021-01-22 17:35 | disposition home or self-care (01) ==
LOC: D.ER 23:25 → D.M2 01-22 00:59 → OBSVTIME 01-22 00:59 → D.M2 01-22 01:43
PROVIDERS: Family Medicine; Internal Medicine Interventional Cardiology; ADMIT Emergency Medicine; ATTEND Emergency Medicine
DX: I25.110 Atherosclerotic heart disease of native coronary artery with unstable angina pectoris (principal); E11.65 Type 2 diabetes mellitus with hyperglycemia; R07.9 Chest pain, unspecified; J44.9 Chronic obstructive pulmonary disease, unspecified; Z86.73 Personal history of transient ischemic attack (TIA), and cerebral infarction without residual deficits; E78.5 Hyperlipidemia, unspecified; D68.51 Activated protein C resistance; K21.9 Gastro-esophageal reflux disease without esophagitis; E66.01 Morbid (severe) obesity due to excess calories; Z68.42 Body mass index [BMI] 45.0-49.9, adult; Z79.84 Long term (current) use of oral hypoglycemic drugs; Z72.0 Tobacco use

== ENCOUNTER 2021-02-01 01:10 | Observation (INO) | payer BC ==
[~2021-02-01] VITALS: Ht 160 cm; Wt 127.7 kg
[~2021-02-01 01:10] MED LIST changes: +JARDIANCE25 MG PO
[2021-02-01 01:41] LABS: BASOPHILS 0.3 % (0-2); EOSINOPHILS 4.4 % (0-7); HEMATOCRIT 46.3 % (36.0-48.0); HEMOGLOBIN 15.3 g/dL (12-16); IMMATURE GRANULOCYTES 0.5 % (0-5); LYMPHOCYTE ABS# 2.52 10x3/uL (1.18-3.74); LYMPHOCYTES 32.5 % (15-50); MCH 30.1 pg (26.0-34.0); MEAN PLATELET VOLUME 10.2 fL (7.4-10.4); MONOCYTES 9.3 % (2-11); NEUTROPHIL ABS# 4.12 10x3/uL (1.56-6.13); PLATELET COUNT 223 10x3/uL (130-400); RBC 5.09 10x6/uL (4.00-5.40); RDW 14.5 % (11.5-14.5); WBC 7.8 10x3/uL (4.8-10.8)
[2021-02-01 02:04] LABS: ALBUMIN 3.2 g/dL (3.4-5.0); ALKALINE PHOSPHATASE 79 U/L (30-120); ALT (SGPT) 64 U/L (10-68); BILIRUBIN - TOTAL 0.29 mg/dL (0.2-1.3); C-REACTIVE PROTEIN 1.4 mg/dL (0.0-0.9); CALC OSMOLALITY 289 mosm/kg (275-300); CALCIUM 8.8 mg/dL (8.5-10.1); CARBON DIOXIDE 25.3 mmol/L (21.0-32.0); CHLORIDE - SERUM 98 mmol/L (98-107); CREATININE - SERUM 0.9 mg/dL (0.6-1.3); GLUCOSE 570 mg/dL (74-106); LIPASE 161 U/L (73-393); MAGNESIUM - SERUM 1.9 mg/dL (1.8-2.4); POTASSIUM - SERUM 4.2 mmol/L (3.5-5.1); PROTEIN - SERUM 6.9 g/dL (6.4-8.2); SODIUM 132 mmol/L (136-145); THYROID STIMULATING HORMONE 0.98 uIU/mL (0.36-3.74); TROPONIN-I < 0.017 ng/mL (0.000-0.060); UREA NITROGEN 9 mg/dL (7-18); eGFR NON AFRICAN AMERICAN 71 mL/min (90-120)
[2021-02-01 02:05] LABS: PRO BNP 9 pg/mL (0-125)
[2021-02-01 02:07] LABS: APTT 27.5 SECONDS (22.8-39.4); INR 1.03 (0.85-1.17); PROTIME 12.5 SECONDS (11.6-15.0)
[2021-02-01 02:08] LABS: D-DIMER-QUANTITATIVE < 0.27 ug/mLFEU (0.20-0.54)
--- NOTE | 2021-02-01 02:44 | NUR ---
CRITICAL LAB LACTIC ACID 2.7, REPORTED TO DR. YOUNG
[2021-02-01] MEDS ORDERED: GLYXAMBI 25 MG1 EACH PO (03:24)
[2021-02-01] MEDS ORDERED: DIFLUCAN200 MG PO (03:30)
[2021-02-01] MEDS ORDERED: CYMBALTA30 MG PO (03:31)
[2021-02-01] MEDS ORDERED: COZAAR25 MG PO (03:33)
[2021-02-01] MEDS ORDERED: OXYBUTYNIN CHLOR5 MG PO (03:34)
[2021-02-01 04:15] VITALS: Ht 160 cm; Wt 127.7 kg
[2021-02-01 04:20] VITALS: BP 106/59
[2021-02-01 07:07] VITALS: BP 119/66
--- NOTE | 2021-02-01 08:21 | NUR ---
AAOX4 UPON ENTERING. RESTING COMFORTABLY IN BED. REQUESTING DIFFERENT PAIN MEDICAITON FOR NECK PAIN. WILL PAGE CHARGING BOARD OPERATOR. DENIES FURTHER NEEDS. BED IN LOWETS POSITION, BED RAILS X2, CALL LIGHT WITHIN REACH. WILL CONTINUE POC.
--- NOTE | 2021-02-01 10:57 | NUR ---
PT RESTING COMFORTABLY IN BED. JESÚS AT BEDSIDE ASKING DISCHARGE QUESTIONS. ADMINISTERED ONE TIME DOSE OF MORPHINE. DENIES ANY NEEDS AT THIS TIME. WILL CONTINUE POC.
--- NOTE | 2021-02-01 11:51 | NUR ---
SIGNED ALL NECESSARY PAPERWORK AND THIS TIME. IV REMOVED FROM LEFT AC. CATHETER TIP INTACT, TOLERATED WELL. COVERED WITH GAUZE AND TAPE. HERE TO TRANSPORT PT HOME. DENIES FURTHER NEEDS FROM HOSPITAL/STAFF. WILL ESCORT OUT VIA WHEELCHAIR.
--- NOTE | 2021-02-01 17:09 | MORECARE ---
CASE MANAGEMENT DISCHARGE SUMMARY PATIENT: SHY LUA UNIT: [id number] ADM DATE: 02/01/21 AGE: 45 : 71 SEX: F ROOM/BED: [facility] AUTHOR: KALEIGH,DOC PHYSICIAN: REFERRING PHYSICIAN: STACEY VIVAS MD DATE OF SERVICE: 02/01/21 Case Management Discharge Planning Summary DCP REVIEW SUMMARY ANTICIPATED D/C DATE: 02/01/2021 EXPECTED LOS : 1 CASE STATUS: DCP Initiated INITIAL REVIEW: 02/01/2021 INITIAL REVIEWER: Kb Jacques FINAL DISCHARGE DISPOSITION: : FINAL REVIEWER: FINAL REVIEW DATE: DCP Focus Questions & Answers QUESTION: ANSWER : PATIENT: SHY LUA ENCOUNTER: [id number] MEDICAL RECORD#: [id number] ADMISSION DATE: 02/01/2021 DISCHARGE DATE: 02/01/2021 ATTENDING MD: STACEY VALENTIN : AGE: 45 MARITAL STATUS: M DC PLAN ID: [id number] FACILITY: [facility] PRINTED ON: 02/01/21 17:09 CT All edits/amendments must be made on the electronic document DICTATION DATE: 02/01/211708 INTERACTIVE MEDIA MARKETING SPECIALIST: TERRELL 02/01/211708 RPT#: [id number] DC DATE:02/01/21 STATUS: DIS IN [facility] [address] [place] [address] END OF REPORT
--- NOTE | 2021-02-01 17:20 | MORECARE ---
CASE MANAGEMENT DISCHARGE SUMMARY PATIENT: SHY LUA UNIT: [id number] ADM DATE: 02/01/21 AGE: 45 : 71 SEX: F ROOM/BED: D.2240 AUTHOR: HEATHER FARRIS PHYSICIAN: REFERRING PHYSICIAN: STACEY VIVAS MD DATE OF SERVICE: 02/01/21 Case Management Discharge Planning Summary COMMENTS ENTERED DATE: 02/01/21 17:11 CT COMMENT TYPE: Discharge Planning REVIEWER: Kb Jacques CM met with patient to complete DC plan and to evaluate needs. Patient lives independently with her spouse, Gamaliel Lua, . Patient stated that their home is safe and has electricity and running water. Patient stated that the home has 4 steps that are difficult at times and she has spoken to her landlord about adequate railing. Patient stated that she has no problems paying for medications and they fill their medications at [facility] in [place], [place]. Patient stated that her primary care physician is Dr. Morin. At discharge, the patient plans to return home and feels this is a safe discharge. CM discussed availability of home health, rehab services, and medical equipment. Patient declined HHS, SNF, IPR, and DME. Patient stated she has a walker. Patient stated that she was not able to follow up with her PCP before this hospitalization. Patient stated that she was able to get her medications. Patient stated that she will speak with Dr. Moirn about in home services resources for home modification. Patient voiced no other needs at this time and is satisfied with DC plan. Transportation provider at discharge will be with her , Gamaliel. CM will continue to follow and will assist as needed with dc plans/needs DCP REVIEW SUMMARY ANTICIPATED D/C DATE: 02/01/2021 EXPECTED LOS : 1 CASE STATUS: DCP Initiated INITIAL REVIEW: 02/01/2021 INITIAL REVIEWER: Kb Jacques FINAL DISCHARGE DISPOSITION: : FINAL REVIEWER: FINAL REVIEW DATE: DCP Focus Questions & Answers DCP Evaluation QUESTION: ANSWER Patient gives permission to discuss discharge plans with: (name, relationship and number) : spouse, Gamaliel Lua, . Patient's ability to cope with chronic illness : d. No chronic illness Patient's current cognitive status: : *Oriented to person, place, situation, time and present Family / Caregiver's ability to cope with chronic illness: : a. Adequate (ability to meet patient's medical needs, ensures patient attends medical appts.) Patient and/or caregiver agree upon recommended discharge plan? : Yes Physical Status: : Independent with ADL's Family / Caregiver's ability to cope with chronic illness: : a. Adequate (ability to meet patient's medical needs, ensures patient attends medical appts.) Functional screen assessment: : Basic needs can adequately be met by self Does the patient have the ability to pay for or attain post discharge needs / services? : Yes Living Arrangements: : Home with Spouse/Significant Other Is there a likelihood that the patient will require additional services to return to the preadmission environment? : No Equipment needed for post hospitalization: : Other Baseline cognitive status: : *Oriented to person, place, situation, time and present Patient with capacity for self-care or can be cared for in same environment as prior to hospitalization? : Yes Other Equipment comments: : RAMP Physical environment modification needed / anticipated for discharge: : Yes Medication Management: : Patient states can read and understand medication labels Pharmacy name(s): : [facility] [place], [place] Does Patient have transportation to get home and to follow-up medical appointments when discharged from the hospital? : Yes Would patient like to participate in any Care Coordination programs (if applicable): : Not applicable Does the patient have electricity at home? : Yes Does the patient have running water in their house? : Yes Equipment in use: : Walker - Rolling Mental health screen: : No mental health history DCP Re-evaluation QUESTION: ANSWER Would patient like to participate in any Care Coordination programs (if applicable): : Not applicable PATIENT: SHY LUA ENCOUNTER: [id number] MEDICAL RECORD#: [id number] ADMISSION DATE: 02/01/2021 DISCHARGE DATE: 02/01/2021 ATTENDING MD: STACEY VALENTIN : AGE: 45 MARITAL STATUS: M DC PLAN ID: [id number] FACILITY: [facility] PRINTED ON: 02/01/21 17:20 CT All edits/amendments must be made on the electronic document DICTATION DATE: 02/01/211719 BAND TOP MAKER: TERRELL 02/01/211719 RPT#: [id number] DC DATE:02/01/21 STATUS: DIS IN [facility] [address] [place] [address] END OF REPORT
== END 2021-02-01 12:04 | disposition home or self-care (01) ==
LOC: D.ER 01:10 → D.MS 02:29 → OBSVTIME 02:29 → D.MS 02:29
PROVIDERS: Family Medicine; ADMIT Emergency Medicine; ATTEND Emergency Medicine
DX: E11.65 Type 2 diabetes mellitus with hyperglycemia (principal); I10 Essential (primary) hypertension; Z86.73 Personal history of transient ischemic attack (TIA), and cerebral infarction without residual deficits; K21.9 Gastro-esophageal reflux disease without esophagitis; J44.9 Chronic obstructive pulmonary disease, unspecified; Z79.84 Long term (current) use of oral hypoglycemic drugs; Z72.0 Tobacco use

== ENCOUNTER 2021-02-10 13:47 | Emergency (ER) | payer BC ==
[~2021-02-10] VITALS: Ht 160 cm; Wt 131.4 kg
[~2021-02-10 13:47] MED LIST changes: +COZAAR25 MG PO; +CYMBALTA30 MG PO; +DIFLUCAN200 MG PO; +GLYXAMBI 25 MG1 EACH PO; +OXYBUTYNIN CHLOR5 MG PO
[2021-02-10 14:13] VITALS: BP 125/76; Ht 160 cm; Wt 131.4 kg
[2021-02-10 15:51] LABS: BASOPHILS 0.4 % (0-2); HEMATOCRIT 50.1 % (36.0-48.0); HEMOGLOBIN 17.1 g/dL (12-16); IMMATURE GRANULOCYTES 0.4 % (0-5); MCH 30.2 pg (26.0-34.0); MCHC 34.1 g/dL (31.0-37.0); MCV 88.5 fL (80.0-100.0); MEAN PLATELET VOLUME 10.1 fL (7.4-10.4); MONOCYTES 8.9 % (2-11); NEUTROPHIL ABS# 4.37 10x3/uL (1.56-6.13); NEUTROPHILS 58.3 % (40-80); PLATELET COUNT 225 10x3/uL (130-400); RBC 5.66 10x6/uL (4.00-5.40); RDW 14.1 % (11.5-14.5); WBC 7.5 10x3/uL (4.8-10.8)
[2021-02-10 15:53] LABS: PROTIME 12.2 SECONDS (11.6-15.0)
[2021-02-10 16:05] LABS: CALC OSMOLALITY 282 mosm/kg (275-300); CALCIUM 9.4 mg/dL (8.5-10.1); CARBON DIOXIDE 20.6 mmol/L (21.0-32.0); CHLORIDE - SERUM 101 mmol/L (98-107); CREATININE - SERUM 0.8 mg/dL (0.6-1.3); POTASSIUM - SERUM 3.9 mmol/L (3.5-5.1); SODIUM 137 mmol/L (136-145); UREA NITROGEN 13 mg/dL (7-18); eGFR NON AFRICAN AMERICAN 81 mL/min (90-120)
[2021-02-10 16:06] LABS: GLUCOSE 257 mg/dL (74-106)
[2021-02-10 16:28] LABS: BILIRUBIN NEGATIVE (NEGATIVE); KETONE NEGATIVE (NEGATIVE); NITRITE POSITIVE (NEGATIVE); UROBILINOGEN NORMAL mg/dL (< 2)
[2021-02-10 16:38] LABS: ALBUMIN 3.5 g/dL (3.4-5.0); ALKALINE PHOSPHATASE 87 U/L (30-120); ALT (SGPT) 74 U/L (10-68); AMYLASE - SERUM 23 U/L (25-115); BILIRUBIN - TOTAL 0.49 mg/dL (0.2-1.3); CKMB 0.4 U/L (0.0-3.6); CREATINE KINASE 38 UL (21-215); LIPASE 58 U/L (73-393); MAGNESIUM - SERUM 1.9 mg/dL (1.8-2.4); PROTEIN - SERUM 7.3 g/dL (6.4-8.2)
[2021-02-10 16:39] LABS: BACTERIA MODERATE HPF (NONE SEEN)
[2021-02-10 16:47] LABS: TROPONIN-I < 0.017 ng/mL (0.000-0.060)
[2021-02-10] MEDS ORDERED: PROMETHAZINE W473 ML PO (17:57)
[2021-02-10] MEDS ORDERED: LEVOFLOXACIN500 MG PO (17:57)
== END 2021-02-10 18:37 | disposition home or self-care (01) ==
LOC: D.ER 13:47
PROVIDERS: Family Medicine
DX: N39.0 Urinary tract infection, site not specified (principal); R10.12 Left upper quadrant pain; E11.9 Type 2 diabetes mellitus without complications; Z86.73 Personal history of transient ischemic attack (TIA), and cerebral infarction without residual deficits; E78.5 Hyperlipidemia, unspecified; I10 Essential (primary) hypertension; J44.9 Chronic obstructive pulmonary disease, unspecified; K21.9 Gastro-esophageal reflux disease without esophagitis; Z99.81 Dependence on supplemental oxygen; Z72.0 Tobacco use; Z79.84 Long term (current) use of oral hypoglycemic drugs

== ENCOUNTER 2021-02-22 19:26 | Observation (INO) | payer MEDICAID ==
[~2021-02-22] VITALS: Ht 160 cm; Wt 126.8 kg
[~2021-02-22 19:26] MED LIST changes: +PROMETHAZINE W473 ML PO
[2021-02-22 19:59] LABS: BASOPHILS 0.3 % (0-2); EOSINOPHILS 5.7 % (0-7); HEMATOCRIT 50.3 % (36.0-48.0); HEMOGLOBIN 16.9 g/dL (12-16); IMMATURE GRANULOCYTES 0.6 % (0-5); LYMPHOCYTE ABS# 1.94 10x3/uL (1.18-3.74); LYMPHOCYTES 20.9 % (15-50); MCH 30.5 pg (26.0-34.0); MCHC 33.6 g/dL (31.0-37.0); MCV 90.8 fL (80.0-100.0); MEAN PLATELET VOLUME 9.4 fL (7.4-10.4); MONOCYTES 8.5 % (2-11); NEUTROPHIL ABS# 5.92 10x3/uL (1.56-6.13); RBC 5.54 10x6/uL (4.00-5.40); WBC 9.3 10x3/uL (4.8-10.8)
[2021-02-22 20:00] LABS: PLATELET COUNT 300 10x3/uL (130-400)
[2021-02-22 20:05] LABS: APTT 27.5 SECONDS (22.8-39.4); INR 1.08 (0.85-1.17)
[2021-02-22 20:06] LABS: D-DIMER-QUANTITATIVE 0.34 ug/mLFEU (0.20-0.54)
[2021-02-22 20:07] LABS: CALC OSMOLALITY 281 mosm/kg (275-300); CALCIUM 9.9 mg/dL (8.5-10.1); CARBON DIOXIDE 28.2 mmol/L (21.0-32.0); CHLORIDE - SERUM 99 mmol/L (98-107); CREATININE - SERUM 1.1 mg/dL (0.6-1.3); GLUCOSE 231 mg/dL (74-106); POTASSIUM - SERUM 4.5 mmol/L (3.5-5.1); SODIUM 137 mmol/L (136-145); UREA NITROGEN 15 mg/dL (7-18); eGFR NON AFRICAN AMERICAN 56 mL/min (90-120)
[2021-02-22 20:20] LABS: ALBUMIN 3.5 g/dL (3.4-5.0); ALKALINE PHOSPHATASE 90 U/L (30-120); ALT (SGPT) 65 U/L (10-68); BILIRUBIN - TOTAL 0.38 mg/dL (0.2-1.3); C-REACTIVE PROTEIN 3.8 mg/dL (0.0-0.9); MAGNESIUM - SERUM 2.4 mg/dL (1.8-2.4); PROTEIN - SERUM 8.5 g/dL (6.4-8.2)
[2021-02-22 20:27] LABS: PRO BNP 7 pg/mL (0-125); TROPONIN-I < 0.017 ng/mL (0.000-0.060)
[2021-02-22 20:48] VITALS: BP 120/80
[2021-02-22 21:49] VITALS: BP 100/69
[2021-02-23 02:00] LABS: CREATINE KINASE 25 UL (21-215); TROPONIN-I < 0.017 ng/mL (0.000-0.060)
[2021-02-23 02:15] VITALS: BP 97/66
[2021-02-23 05:44] VITALS: Ht 160 cm; Wt 126.8 kg
[2021-02-23 06:08] VITALS: BP 130/108
[2021-02-23 06:28] LABS: BASOPHILS 0.3 % (0-2); EOSINOPHILS 7.1 % (0-7); HEMATOCRIT 45.1 % (36.0-48.0); HEMOGLOBIN 14.9 g/dL (12-16); IMMATURE GRANULOCYTES 0.4 % (0-5); LYMPHOCYTE ABS# 2.04 10x3/uL (1.18-3.74); LYMPHOCYTES 27.2 % (15-50); MCH 30.3 pg (26.0-34.0); MCV 91.7 fL (80.0-100.0); MEAN PLATELET VOLUME 9.4 fL (7.4-10.4); MONOCYTES 13.3 % (2-11); NEUTROPHIL ABS# 3.88 10x3/uL (1.56-6.13); NEUTROPHILS 51.7 % (40-80); PLATELET COUNT 280 10x3/uL (130-400); RBC 4.92 10x6/uL (4.00-5.40); WBC 7.5 10x3/uL (4.8-10.8)
[2021-02-23 06:48] LABS: ANION GAP 14.4 mmol/L (8-16); CALCIUM 9.1 mg/dL (8.5-10.1); CARBON DIOXIDE 25.7 mmol/L (21.0-32.0); MAGNESIUM - SERUM 2.3 mg/dL (1.8-2.4); PHOSPHOROUS 5.1 mg/dL (2.5-4.9); POTASSIUM - SERUM 4.1 mmol/L (3.5-5.1)
[2021-02-23 07:08] LABS: CKMB 0.2 U/L (0.0-3.6); CREATINE KINASE 26 UL (21-215); TROPONIN-I < 0.017 ng/mL (0.000-0.060)
[2021-02-23 09:09] VITALS: BP 102/66
[2021-02-23 12:14] LABS: CKMB 0.3 U/L (0.0-3.6); CREATINE KINASE 35 UL (21-215)
[2021-02-23 12:15] LABS: TROPONIN-I < 0.017 ng/mL (0.000-0.060)
[2021-02-23 12:17] VITALS: BP 112/70
--- NOTE | 2021-02-23 13:53 | CN ---
PATIENT NAME:SHY LUA MEDICAL RECORD: [id number] : 71 LOCATION:D. D.2114 ADMIT DATE: 02/22/21 ACCOUNT: [id number] CONSULTING PHYSICIAN: HUNG BROWN MD REFERRING PHYSICIAN: DELIO SANDERS MD DATE OF CONSULTATION: 02/23/2021 HISTORY OF PRESENT ILLNESS: The patient is a 45-year-old female with history of coronary artery disease, PCI/stents, hypertension, history of factor V deficiency, diabetes mellitus, hypertension, hyperlipidemia, and obesity, who presented to the Emergency Room after suffering a fall with complaints of occasional episodes of chest pain. The patient denies exertional component to her symptoms. I am asked to evaluate from a cardiovascular standpoint. PAST MEDICAL HISTORY: Significant for, 1. Atherosclerotic heart disease. 2. History of PCI/stent. 3. Chest pain/discomfort - atypical/nonexertional. 4. History of fall. 5. Diabetes mellitus. 6. Hypertension. 7. Hyperlipidemia. 8. History of DVT. HOME MEDICATIONS: Levaquin 500 mg daily, Pradaxa 75 mg b.i.d., Cardizem CD 240 mg daily, Protonix 40 mg a day, and Plavix 75 mg a day. Albuterol inhalers p.r.n. PHYSICAL EXAMINATION: GENERAL: Obese white female, in no apparent distress. VITAL SIGNS: Blood pressure 130/100, pulse 90 (regular). HEENT: Sclerae are clear; conjunctivae pink. NECK: Supple. No appreciated JVD/carotid bruits. HEART: Regular rhythm and rate. LUNGS: Clear. ABDOMEN: Benign. EXTREMITIES: Negative for edema. NEUROLOGIC: Nonfocal. LABORATORY DATA: White blood count 7.5, hemoglobin and hematocrit 14.9 and 41.1, and platelet count 280. Glucose 151. Troponin 0.017 by 3 (negative). Platelet count is 300. Sodium 137, potassium 4.5, BUN 15, creatinine is 1.1. BNP 7. EKG normal sinus rhythm, no acute ST-T changes. ASSESSMENT AND PLAN: 1. Atherosclerotic heart disease. 2. History of PCI/stenting. 3. Chest pain/discomfort - atypical and noncardiac. 4. Diabetes mellitus. 5. Hypertension. 6. Hyperlipidemia. 7. History of factor V deficiency. 8. History of deep venous thrombosis/pulmonary embolism. CONSULT REPORT [id number] SHY LUA 9. Obesity. PLAN: Continue current medical management at this time. There is no evidence of acute cardiac decompensation at this time. We will resume the patient's home medication regimen. No further cardiac workup indicated at this time. The patient is scheduled to follow up in outpatient clinic with scheduled appointment. Thank you for allowing me to participate in the care of this patient. TRANSINT:[id number] Voice Confirmation ID: [id number] DOCUMENT ID: [id number] HUNG BROWN MD at 1353 CC: [id number] DICTATION DATE: 02/23/21 1010 LAW EXAMINER: 02/23/21 1033 ADM IN [place] [id number] [place] [address]
--- NOTE | 2021-02-23 15:25 | NUR ---
PT'S ORTHOSTATIC BP LAYING-104/61 HR81 SITTING-101/71 HR91 STANDING-112/70 HR88
[2021-02-23 16:33] VITALS: BP 120/66
--- NOTE | 2021-02-23 19:30 | NUR ---
RECEIVED REPORT, WILL ASSUME CARE OF PT, PT DENIES ANY NEEDS AT THIS TIME, BED IS LOW, SRX2, CALL LIGHT IN REACH, WILL CONTINUE PLAN OF CARE
[2021-02-23 21:39] VITALS: BP 107/65
[2021-02-24 04:13] VITALS: BP 126/76
--- NOTE | 2021-02-24 06:12 | NUR ---
I have reviewed this patient and I concur with the Shift Assessment completed by the Licensed Practical Nurse today this shift.
--- NOTE | 2021-02-24 07:15 | NUR ---
INITIAL ROUNDS- PT RESTING COMFORTABLY IN BED, WANTS TO KNOW IF SHE CAN HAVE PAIN MEDICATION. INFORMED PT THAT SHE CANNOT HAVE IT UNTIL 0740. PT IS A/O X4, RESP EVEN AND NONLABORED ON 3LNC. RT AC IV SL. SR-81 ON TELE. PT DENIES ANY OTHER NEEDS AT THIS TIME. CALL LIGHT IN REACH, WILL CONTINUE PLAN OF CARE.
[2021-02-24 07:21] LABS: BASOPHILS 0.4 % (0-2); EOSINOPHILS 6.1 % (0-7); HEMATOCRIT 45.5 % (36.0-48.0); HEMOGLOBIN 14.8 g/dL (12-16); IMMATURE GRANULOCYTES 0.4 % (0-5); LYMPHOCYTE ABS# 1.75 10x3/uL (1.18-3.74); LYMPHOCYTES 20.7 % (15-50); MCH 29.8 pg (26.0-34.0); MCHC 32.5 g/dL (31.0-37.0); MCV 91.5 fL (80.0-100.0); MEAN PLATELET VOLUME 9.4 fL (7.4-10.4); NEUTROPHIL ABS# 5.28 10x3/uL (1.56-6.13); NEUTROPHILS 62.4 % (40-80); PLATELET COUNT 276 10x3/uL (130-400); RBC 4.97 10x6/uL (4.00-5.40); WBC 8.5 10x3/uL (4.8-10.8)
[2021-02-24 07:30] LABS: CALCIUM 9.9 mg/dL (8.5-10.1); CARBON DIOXIDE 26.5 mmol/L (21.0-32.0); CREATININE - SERUM 1.1 mg/dL (0.6-1.3); MAGNESIUM - SERUM 2.4 mg/dL (1.8-2.4); POTASSIUM - SERUM 4.5 mmol/L (3.5-5.1)
[2021-02-24 07:32] LABS: PHOSPHOROUS 7.4 mg/dL (2.5-4.9)
[2021-02-24 07:47] VITALS: BP 132/67
--- NOTE | 2021-02-24 08:03 | NUR ---
AM MEDS GIVEN, ALSO GAVE 4MG OF MORPHINE FOR PAIN LEVEL OF 8/10 AND 4MG OF ZOFRAN. ALL NEEDS MET CALL LIGHT IN REACH, WILL CONTINUE PLAN OF CARE.
--- NOTE | 2021-02-24 11:17 | NUR ---
2MG OF MORPHINE GIVEN FOR PAIN LEVEL OF 8/10. ALSO GAVE 8UNITS OF INSULIN FOR BLOOD SUGAR OF 214 PER S/S. ALL NEEDS MET,CALL LIGHT IN REACH.
--- NOTE | 2021-02-24 13:05 | NUR ---
PROVIDED VERBAL AND WRITTEN DISCHARGE TEACHING TO PT, WHO VERBALIZED UNDERSTANDING REGARDING TEACHING. D/C RT AC IV WITH CATHETER TIP INTACT. HEART MONITOR REMOVED AND TAKEN TO EVENT LIGHTING SPECIALIST, PT WAITING ON RIDE, WILL NOTIFY NURSE WHEN READY FOR WHEELCHAIR.
--- NOTE | 2021-02-24 14:44 | NUR ---
PT LEFT UNIT VIA WHEELCHAIR, WITH ALL BELONGINGS, NAD NOTED.
== END 2021-02-24 14:44 | disposition home or self-care (01) ==
LOC: D.ER 19:26 → D.M2 20:20 → OBSVTIME 20:20 → D.M2 02-24 14:44
PROVIDERS: Family Medicine; ADMIT Family Medicine; ATTEND Family Medicine
DX: R07.9 Chest pain, unspecified (principal); I25.10 Atherosclerotic heart disease of native coronary artery without angina pectoris; I10 Essential (primary) hypertension; E78.5 Hyperlipidemia, unspecified; J44.9 Chronic obstructive pulmonary disease, unspecified; K21.9 Gastro-esophageal reflux disease without esophagitis; Z86.73 Personal history of transient ischemic attack (TIA), and cerebral infarction without residual deficits; Z72.0 Tobacco use; Z79.84 Long term (current) use of oral hypoglycemic drugs; Z86.718 Personal history of other venous thrombosis and embolism; D68.2 Hereditary deficiency of other clotting factors; E11.40 Type 2 diabetes mellitus with diabetic neuropathy, unspecified; D75.1 Secondary polycythemia; E66.01 Morbid (severe) obesity due to excess calories; Z68.42 Body mass index [BMI] 45.0-49.9, adult; E11.65 Type 2 diabetes mellitus with hyperglycemia; G89.29 Other chronic pain; R42 Dizziness and giddiness

== ENCOUNTER 2021-02-28 19:23 | Emergency (ER) | payer BC ==
[~2021-02-28] VITALS: Ht 160 cm; Wt 128.2 kg
[2021-02-28 19:35] VITALS: Ht 160 cm; Wt 128.2 kg
[2021-02-28 20:09] LABS: BASOPHILS 0.4 % (0-2); EOSINOPHILS 6.8 % (0-7); HEMATOCRIT 46.5 % (36.0-48.0); HEMOGLOBIN 15.7 g/dL (12-16); IMMATURE GRANULOCYTES 0.2 % (0-5); LYMPHOCYTE ABS# 2.21 10x3/uL (1.18-3.74); MCH 30.4 pg (26.0-34.0); MCHC 33.8 g/dL (31.0-37.0); MCV 90.1 fL (80.0-100.0); MONOCYTES 7.4 % (2-11); NEUTROPHIL ABS# 5.04 10x3/uL (1.56-6.13); NEUTROPHILS 59.2 % (40-80); PLATELET COUNT 252 10x3/uL (130-400); RBC 5.16 10x6/uL (4.00-5.40); RDW 13.6 % (11.5-14.5); WBC 8.5 10x3/uL (4.8-10.8)
[2021-02-28 20:19] LABS: APTT 23.7 SECONDS (22.8-39.4); INR 1.16 (0.85-1.17); PROTIME 13.7 SECONDS (11.6-15.0)
[2021-02-28 21:13] LABS: CALC OSMOLALITY 284 mosm/kg (275-300); CALCIUM 8.8 mg/dL (8.5-10.1); CARBON DIOXIDE 28.7 mmol/L (21.0-32.0); CHLORIDE - SERUM 104 mmol/L (98-107); CREATININE - SERUM 0.9 mg/dL (0.6-1.3); POTASSIUM - SERUM 4.6 mmol/L (3.5-5.1); SODIUM 139 mmol/L (136-145); UREA NITROGEN 10 mg/dL (7-18); eGFR NON AFRICAN AMERICAN 71 mL/min (90-120)
[2021-02-28 21:15] LABS: GLUCOSE 243 mg/dL (74-106)
[2021-02-28 21:28] LABS: ALKALINE PHOSPHATASE 74 U/L (30-120); ALT (SGPT) 52 U/L (10-68); BILIRUBIN - TOTAL 0.36 mg/dL (0.2-1.3); CKMB 0.2 U/L (0.0-3.6); CREATINE KINASE 48 UL (21-215); MAGNESIUM - SERUM 2.3 mg/dL (1.8-2.4); PROTEIN - SERUM 7.2 g/dL (6.4-8.2)
[2021-02-28 21:34] LABS: TROPONIN-I < 0.017 ng/mL (0.000-0.060)
[2021-02-28 22:05] VITALS: BP 126/86
== END 2021-02-28 22:15 | disposition home or self-care (01) ==
LOC: D.ER 19:23
PROVIDERS: Student in an Organized Health Care Education/Training Program
DX: R07.9 Chest pain, unspecified (principal); Z86.73 Personal history of transient ischemic attack (TIA), and cerebral infarction without residual deficits; E11.40 Type 2 diabetes mellitus with diabetic neuropathy, unspecified; I10 Essential (primary) hypertension; E78.5 Hyperlipidemia, unspecified; J44.9 Chronic obstructive pulmonary disease, unspecified; K21.9 Gastro-esophageal reflux disease without esophagitis; Z99.81 Dependence on supplemental oxygen; Z72.0 Tobacco use; Z79.84 Long term (current) use of oral hypoglycemic drugs

== ENCOUNTER 2021-03-11 22:36 | Observation (INO) | payer BC ==
[~2021-03-11] VITALS: Ht 160 cm; Wt 141.1 kg
[2021-03-11 23:28] LABS: EOSINOPHILS 8.5 % (0-7); HEMATOCRIT 40.7 % (36.0-48.0); HEMOGLOBIN 13.6 g/dL (12-16); MCH 29.5 pg (26.0-34.0); MCHC 33.5 g/dL (31.0-37.0); MCV 88.2 fL (80.0-100.0); MEAN PLATELET VOLUME 7.5 fL (7.4-10.4); MONOCYTES 8.9 % (2-11); NEUTROPHILS 61.6 % (40-80); PLATELET COUNT 256 10x3/uL (130-400); RBC 4.61 10x6/uL (4.00-5.40); RDW 14.2 % (11.5-14.5); WBC 10.3 10x3/uL (4.8-10.8)
[2021-03-11 23:30] VITALS: BP 131/59; BP 163/73
[2021-03-11 23:38] LABS: APTT 28.4 SECONDS (22.8-39.4); INR 1.13 (0.85-1.17); PROTIME 13.4 SECONDS (11.6-15.0)
[2021-03-11 23:49] LABS: CALC OSMOLALITY 282 mosm/kg (275-300); CALCIUM 9.3 mg/dL (8.5-10.1); CARBON DIOXIDE 29.7 mmol/L (21.0-32.0); CHLORIDE - SERUM 103 mmol/L (98-107); CREATININE - SERUM 0.9 mg/dL (0.6-1.3); GLUCOSE 202 mg/dL (74-106); POTASSIUM - SERUM 3.8 mmol/L (3.5-5.1); SODIUM 138 mmol/L (136-145); UREA NITROGEN 14 mg/dL (7-18); eGFR NON AFRICAN AMERICAN 71 mL/min (90-120)
[2021-03-12 00:05] LABS: ALBUMIN 2.9 g/dL (3.4-5.0); ALKALINE PHOSPHATASE 66 U/L (30-120); ALT (SGPT) 47 U/L (10-68); BILIRUBIN - TOTAL 0.27 mg/dL (0.2-1.3); CKMB 0.7 U/L (0.0-3.6); CREATINE KINASE 53 UL (21-215); PROTEIN - SERUM 6.6 g/dL (6.4-8.2)
[2021-03-12 00:07] LABS: TROPONIN-I < 0.017 ng/mL (0.000-0.060)
[2021-03-12] MEDS ORDERED: NEURONTIN 300300 MG PO (03:10)
[2021-03-12 03:23] VITALS: BP 131/82; BMI 55.2
[2021-03-12 04:00] VITALS: BP 106/52
--- NOTE | 2021-03-12 07:13 | NUR ---
RECEIVE SHIFT REPORT. RESTLESS IN BED COMPLAINING OF PAIN. STATES SHE HAS NOT SLEPT ALL NIGHT. WILL ASSESS PAIN AND ADMINISTER MORPHINE ORDERED. LAST DOSE GIVEN AT 0400. CALL LIGHT IN REACH. WILL CONTINUE POC AND SAFETY PRECAUTIONS.
[2021-03-12 08:00] VITALS: BP 129/82
[2021-03-12 09:15] LABS: BASOPHILS 0.6 % (0-2); EOSINOPHILS 9.1 % (0-7); HEMATOCRIT 41.1 % (36.0-48.0); HEMOGLOBIN 13.6 g/dL (12-16); LYMPHOCYTES 22.6 % (15-50); MCH 29.4 pg (26.0-34.0); MCHC 33.1 g/dL (31.0-37.0); MCV 88.8 fL (80.0-100.0); MEAN PLATELET VOLUME 7.5 fL (7.4-10.4); MONOCYTES 9.9 % (2-11); NEUTROPHILS 57.8 % (40-80); PLATELET COUNT 256 10x3/uL (130-400); RBC 4.62 10x6/uL (4.00-5.40); RDW 14.6 % (11.5-14.5); WBC 9.6 10x3/uL (4.8-10.8)
[2021-03-12 09:30] LABS: ANION GAP 13.5 mmol/L (8-16); CALCIUM 9.3 mg/dL (8.5-10.1); CARBON DIOXIDE 27.2 mmol/L (21.0-32.0); CHOL - HDL RATIO 4.8 ratio (2.3-4.1); LDL-HDL RATIO 2.1 ratio (1.5-3.5); POTASSIUM - SERUM 3.7 mmol/L (3.5-5.1)
[2021-03-12 12:59] VITALS: Ht 160 cm; Wt 141.1 kg
[2021-03-12 16:00] VITALS: BP 155/92
[2021-03-12 21:32] VITALS: BP 154/91
[2021-03-13 00:47] LABS: BILIRUBIN NEGATIVE (NEGATIVE); KETONE NEGATIVE (NEGATIVE); NITRITE NEGATIVE (NEGATIVE); UROBILINOGEN NORMAL mg/dL (< 2)
[2021-03-13 01:19] LABS: UDS - AMPHET NEGATIVE QUAL (NEGATIVE); UDS - BARB NEGATIVE QUAL (NEGATIVE); UDS - BENZO NEGATIVE QUAL (NEGATIVE); UDS - COCAINE NEGATIVE QUAL (NEGATIVE); UDS - OPIATE POSITIVE QUAL (NEGATIVE); UDS - PCP NEGATIVE QUAL (NEGATIVE); UDS - THC NEGATIVE QUAL (NEGATIVE)
[2021-03-13 01:21] VITALS: BP 152/85
[2021-03-13 05:06] VITALS: BP 120/70
[2021-03-13 06:25] LABS: BASOPHILS 0.2 % (0-2); EOSINOPHILS 0 % (0-7); HEMATOCRIT 42.3 % (36.0-48.0); HEMOGLOBIN 14.1 g/dL (12-16); LYMPHOCYTES 7.5 % (15-50); MCH 29.3 pg (26.0-34.0); MCHC 33.4 g/dL (31.0-37.0); MCV 87.9 fL (80.0-100.0); MEAN PLATELET VOLUME 7.8 fL (7.4-10.4); MONOCYTES 2.9 % (2-11); NEUTROPHILS 89.4 % (40-80); PLATELET COUNT 285 10x3/uL (130-400); RBC 4.82 10x6/uL (4.00-5.40); RDW 14.1 % (11.5-14.5)
[2021-03-13 06:26] LABS: WBC 14.8 10x3/uL (4.8-10.8)
[2021-03-13 06:42] LABS: ALBUMIN 3.3 g/dL (3.4-5.0); ANION GAP 15.2 mmol/L (8-16); BILIRUBIN - TOTAL 0.37 mg/dL (0.2-1.3); CALCIUM 9.6 mg/dL (8.5-10.1); CARBON DIOXIDE 27.1 mmol/L (21.0-32.0); CREATININE - SERUM 1.1 mg/dL (0.6-1.3); MAGNESIUM - SERUM 2.4 mg/dL (1.8-2.4); POTASSIUM - SERUM 4.3 mmol/L (3.5-5.1); PROTEIN - SERUM 6.8 g/dL (6.4-8.2)
--- NOTE | 2021-03-13 06:50 | NUR ---
BEDSIDE REPORT RECIEVED. PATIENT AWAKE AND ALERT. NO CURRENT DISTRESS VOICED. INQUIRED ABOUT HEART CATH TIME. RESP EVEN AND UNLABLORED. PAIN LEVEL 5 MEDICATION DUE AT 8AM.
--- NOTE | 2021-03-13 07:06 | NUR ---
20 GAUGE HEPLOCK STARTED TO LEFT FOREARM X1 STICK. TOLERATED WELL. GOOD BLOOD RETURN. HEPLOCK REMOVED FROM RIGHT CHEST W/ CATHETER INTACT. REDDENED AREA NOTED AT INSERTION SITE.
[2021-03-13 08:17] VITALS: BP 117/71
--- NOTE | 2021-03-13 08:24 | NUR ---
PATIENT RESTING IN BED. PAIN LEVEL VOICED AT AM 8. PRN MORPHINE ADMINISTERED. HEART SOUNDS IRREGULAR RYTHYM. BOWEL SOUNDS ACTIVE X 4 QUADS. RESP EVEN AND UNLABORED. LUNG SOUNDS CLEAR AT THIS TIME. PATIENT AWAITING TIME FOR HEART CATH. REMAINS NPO UNTIL ORDERS CHANGE. CONSENTS SIGNED LAST NIGHT FOR PROCEDURE.
[2021-03-13 12:11] VITALS: BP 126/80
--- NOTE | 2021-03-13 15:30 | NUR ---
PATIENT RETURNED TO FLOOR FROM MINISTER ASSISTANT. CLEAR HEART CATH. RIGHT FEMORAL ENTRY. DRESSING CLEAN DRY AND INTACT. NO SWELLING OR LUMPS NOTED AROUND SIGHT. VITAL SIGNS STABLE. PATIENT AWAKE AND ALERT. TO VERBAL COMPLAINTS AT THIS TIME.
[2021-03-13 16:00] VITALS: BP 138/64
--- NOTE | 2021-03-13 17:50 | NUR ---
HEART CATH SIGHT CLEAN DRY AND INTACT. PATIENT CONTINUES LAYING ON BACK FOR AN HOUR AND A HALF. MORPHINE ADMINSTERED FOR PAIN AT 5PM TELE SR99.
--- NOTE | 2021-03-14 08:32 | OP ---
PATIENT NAME: SHY LUA MEDICAL RECORD: [id number] :71 LOCATION:D.M2 D.4 ADMISSION DATE:03/12/21 SURGEON: DOMENIC BYNUM MD DATE OF OPERATION: 03/13/2021 PROCEDURE PERFORMED: Left heart catheterization, selective coronary angiography, right femoral artery approach. CATHETERS: A 5-Upper Sorbian sheath, 5/4 left and right Willi, 5/4 pig. The procedure was well tolerated, the patient returned to the aleman, sheath removed, ExoSeal device placed. FINDINGS: Left ventriculography in 30-degree WEBB view: Normal wall motion, normal systolic function. CORONARY ANATOMY: Left main: Left main is free of disease. LAD: Free of disease in the diagonal system. Circumflex: Free of disease in the marginal system. Right coronary artery: Dominant artery, gives rise to PDA, free of disease. IMPRESSION: Normal left ventricular systolic function, normal coronary anatomy. TRANSINT:[id number] Voice Confirmation ID: [id number] DOCUMENT ID: [id number] DOMENIC BYNUM MD at 0832 CC: [id number] DICTATION DATE: 03/13/21 1525 HOME ENERGY RATER: 03/13/215 DIS IN 03/13/21 [facility] [address] [place] [address]
== END 2021-03-13 22:37 | disposition home or self-care (01) ==
LOC: D.ER 22:36 → D.M2 03-12 01:29 → OBSVTIME 03-12 01:30 → D.M2 03-13 22:37
PROVIDERS: Family Medicine; Internal Medicine Cardiovascular Disease; ADMIT Family Medicine; ATTEND Family Medicine
DX: R07.9 Chest pain, unspecified (principal); D68.51 Activated protein C resistance; I10 Essential (primary) hypertension; Z79.84 Long term (current) use of oral hypoglycemic drugs; E78.5 Hyperlipidemia, unspecified; J44.9 Chronic obstructive pulmonary disease, unspecified; K21.9 Gastro-esophageal reflux disease without esophagitis; E11.65 Type 2 diabetes mellitus with hyperglycemia; E66.01 Morbid (severe) obesity due to excess calories; Z68.42 Body mass index [BMI] 45.0-49.9, adult; I24.9 Acute ischemic heart disease, unspecified

== ENCOUNTER 2021-03-25 12:36 | Emergency (ER) | payer BC ==
[~2021-03-25] VITALS: Ht 160 cm; Wt 130.0 kg
[2021-03-25 12:54] VITALS: BP 153/102; Ht 160 cm; Wt 130.0 kg
[2021-03-25 13:34] LABS: BASOPHILS 0.5 % (0-2); EOSINOPHILS 4.2 % (0-7); HEMATOCRIT 45.2 % (36.0-48.0); HEMOGLOBIN 15.3 g/dL (12-16); LYMPHOCYTES 16.4 % (15-50); MCH 29.8 pg (26.0-34.0); MCHC 33.9 g/dL (31.0-37.0); MCV 88.1 fL (80.0-100.0); NEUTROPHILS 70.9 % (40-80); PLATELET COUNT 241 10x3/uL (130-400); RBC 5.13 10x6/uL (4.00-5.40); RDW 14.5 % (11.5-14.5); WBC 8.5 10x3/uL (4.8-10.8)
[2021-03-25 13:41] LABS: ANION GAP 12.2 mmol/L (8-16); CALCIUM 9.1 mg/dL (8.5-10.1); CARBON DIOXIDE 27.5 mmol/L (21.0-32.0); CREATININE - SERUM 0.9 mg/dL (0.6-1.3); POTASSIUM - SERUM 3.7 mmol/L (3.5-5.1)
[2021-03-25 13:49] LABS: ALBUMIN 3.5 g/dL (3.4-5.0); BILIRUBIN - TOTAL 0.46 mg/dL (0.2-1.3); PROTEIN - SERUM 7.6 g/dL (6.4-8.2)
== END 2021-03-25 14:24 | disposition home or self-care (01) ==
LOC: D.ER 12:36
PROVIDERS: Student in an Organized Health Care Education/Training Program
DX: H53.9 Unspecified visual disturbance (principal); Z86.73 Personal history of transient ischemic attack (TIA), and cerebral infarction without residual deficits; E11.40 Type 2 diabetes mellitus with diabetic neuropathy, unspecified; I10 Essential (primary) hypertension; Z72.0 Tobacco use; Z79.84 Long term (current) use of oral hypoglycemic drugs; R20.0 Anesthesia of skin

== ENCOUNTER 2021-03-29 01:31 | Emergency (ER) | payer BC ==
[~2021-03-29] VITALS: Ht 160 cm; Wt 131.1 kg
[2021-03-29 01:39] VITALS: Ht 160 cm; Wt 131.1 kg
[2021-03-29] MEDS ORDERED: LYRICA150 MG PO (01:43)
[2021-03-29] MEDS ORDERED: HYDROCODON-ACE1 EA10 PO (01:44)
[2021-03-29] MEDS ORDERED: BUSPAR 15 MG TA15 MG PO (01:46)
[2021-03-29 02:36] LABS: BASOPHILS 1.3 % (0-2); EOSINOPHILS 5.5 % (0-7); HEMATOCRIT 46.2 % (36.0-48.0); HEMOGLOBIN 15.6 g/dL (12-16); LYMPHOCYTES 30.4 % (15-50); MCH 29.7 pg (26.0-34.0); MCHC 33.7 g/dL (31.0-37.0); MCV 88.2 fL (80.0-100.0); MEAN PLATELET VOLUME 7.1 fL (7.4-10.4); NEUTROPHILS 53.8 % (40-80); PLATELET COUNT 252 10x3/uL (130-400); RBC 5.24 10x6/uL (4.00-5.40); RDW 14.5 % (11.5-14.5); WBC 7.6 10x3/uL (4.8-10.8)
[2021-03-29 02:43] LABS: APTT 23.7 SECONDS (22.8-39.4); CALC OSMOLALITY 283 mosm/kg (275-300); CALCIUM 9.7 mg/dL (8.5-10.1); CARBON DIOXIDE 29.9 mmol/L (21.0-32.0); CHLORIDE - SERUM 100 mmol/L (98-107); GLUCOSE 333 mg/dL (74-106); INR 1.04 (0.85-1.17); POTASSIUM - SERUM 3.9 mmol/L (3.5-5.1); PROTIME 12.6 SECONDS (11.6-15.0); SODIUM 136 mmol/L (136-145); UREA NITROGEN 10 mg/dL (7-18); eGFR NON AFRICAN AMERICAN 63 mL/min (90-120)
[2021-03-29 02:59] LABS: ALBUMIN 3.4 g/dL (3.4-5.0); ALKALINE PHOSPHATASE 69 U/L (30-120); ALT (SGPT) 102 U/L (10-68); BILIRUBIN - TOTAL 0.35 mg/dL (0.2-1.3); CKMB 0.3 U/L (0.0-3.6); CREATINE KINASE 27 UL (21-215); MAGNESIUM - SERUM 1.8 mg/dL (1.8-2.4); PROTEIN - SERUM 7.6 g/dL (6.4-8.2); TROPONIN-I < 0.017 ng/mL (0.000-0.060)
[2021-03-29] MEDS ORDERED: NAPROXEN250 MG PO (04:21)
[2021-03-29 05:36] VITALS: BP 145/100
== END 2021-03-29 05:48 | disposition home or self-care (01) ==
LOC: D.ER 01:31
PROVIDERS: Family Medicine
DX: M54.30 Sciatica, unspecified side (principal); D68.51 Activated protein C resistance; M54.9 Dorsalgia, unspecified